=== PATIENT | female | born 1945 | race Caucasian/White ===

== ENCOUNTER 2017-01-29 15:23 | Inpatient (IN) | payer MEDICARE, OTHER ==
[~2017-01-29] VITALS: Ht 172.7 cm; Wt 50.5 kg
[~2017-01-29 15:23] MED LIST: ASPI325T PO; BUPR-51 PO; CALC625T32 PO; CITA40TA6 PO; DOCU-175 PO; FENT1PAT66 TD; HYDR-3989 PO; HYDR-4078 PO; HYDR12.54 PO; SERT50TA12 PO; TEMA15CA PO
--- NOTE | 2017-01-29 15:24 | NUR ---
Admit A 71 year old female was admitted to room 179 via non emergent transport. She was able to move herself over to her bed from the cart, with minimal assist. Pivoted well with TLSO brace in place. Pt reports having a prothesis to the Rt eye. No open areas noted. Fentanyl Patch to the Lt upper chest, placed 3/12 per hospital records. Reports that her reason for being here was that she "slipped on a rug and fell." She had her cell phone with her
--- OUTSIDE RECORDS SUMMARY | 2017-01-29 15:29 | XMS REPORT | Continuity of Care Document ---
Author Author [facility] Organization [facility] Address Unknown Phone Unavailable Care Team Providers Care Design Engineer Name Role Phone Mona Penaloza Primary Care Physician [phone] Source Comments Some departments are not documenting in the electronic medical record. If you do not see the information that you expected, contact Release of Information in the Health Information Management department at [phone] for further assistance in locating additional records.[facility] Active Allergies and Adverse Reactions Allergen Noted Date Severity Reactions Comments Doxycycline 01/10/2010 ITCHING "Itching in throat" Egg White 06/20/2013 EDEMA Raw eggs- Does not take flu vaccine or pneumonia vaccine Per pt 09/11: tolerates cooked egg in product and hard boiled egg but not scrambled egg, fluid eggs, or omelets. Ibuprofen 01/10/2010 ITCHING "Itching in throat" Current Medications Prescription Sig. Disp. Refills Start End Date Status Date temazepam (RESTORIL) 15 Take 15 mg by mouth at Active mg capsule bedtime daily. hydrochlorothiazide Take 12.5 mg by mouth Active (HYDRODIURIL) 12.5 mg Tab daily. tablet fish oil /omega-3 fatty Take 1 Cap by mouth Active acids (SEA-OMEGA) daily. 340/1000 mg capsule citalopram (CELEXA) 40 mg Take 40 mg by mouth Active tablet daily. vitamins, multiple tablet Take 1 Tab by mouth Active daily. ascorbic acid (VITAMIN-C) Take 500 mg by mouth Active 500 mg tablet daily. cholecalciferol (Vitamin Take 1,000 Units by mouth Active D3) (VITAMIN D-3) 1,000 daily. units tablet docusate (COLACE) 100 mg Take 100 mg by mouth Active capsule daily as needed. For constipation aspirin 325 mg tablet Take 1 Tab by mouth 30 Tab 1 09/24/20 Active daily. 13 HYDROcodone/acetaminophen TAKE ONE TO TWO TABLETS 50 Tab 0 02/04/20 Active (NORCO; VICODIN) 5-325 mg BY MOUTH EVERY 6 TO 8 14 tablet HOURS NEEDED FOR PAIN minocycline (MINOCIN) 100 TAKE ONE CAPSULE BY MOUTH 60 Cap 11 Active mg capsule TWICE A DAY 14 ciprofloxacin HCl (CIPRO) Take 1 Tab by mouth 30 Tab 0 03/15/20 Active 250 mg tablet daily. 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 Social History Tobacco Use Types Packs/Day Years Used Date Former Smoker Cigarettes 1 58 Quit: 05/19/2013 Smokeless Tobacco: Never Used Tobacco Cessation: Counseling Given: Yes Comments: Chews nicorette gum Alcohol Use Drinks/Week oz/Week Comments No recovering alcoholic-7 yrs sober Last Filed Vital Signs Vital Sign Reading Time Taken Blood Pressure 146/86 09/10/2014 12:58 PM CDT Pulse 72 09/10/2014 12:58 PM CDT Temperature 36.3 C (97.3 F) 09/10/2014 12:58 PM CDT Respiratory Rate 16 09/10/2014 12:58 PM CDT Height 1.753 m (5' 9.02") 09/10/2014 12:58 PM CDT Weight 53.706 kg (118 lb 6.4 oz) 09/10/2014 12:58 PM CDT Body Mass Index 17.48 09/10/2014 12:58 PM CDT Oxygen Saturation 95% 09/24/2013 6:00 AM 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
[2017-01-29] MEDS ORDERED: HYDROCODONE/APAP 5 mg/325 mg TABLET PO ONE (15:30)
--- OUTSIDE RECORDS SUMMARY | 2017-01-29 15:30 | XMS REPORT | Continuity of Care Document ---
Author Author [facility] Organization [facility] Address Unknown Phone Unavailable Allergies Medications Problems Procedures Results Encounters ACCT No. Visit Date/Time Discharge Status Pt. Type Provider Facility Loc./Unit Complaint [id number] 02/02/2014 13:24:00 02/02/2014 23 :59:59 CLS Outpatient
--- OUTSIDE RECORDS SUMMARY | 2017-01-29 15:30 | XMS REPORT | Continuity of Care Document ---
Author Author [facility] Organization [facility] Address Unknown Phone Unavailable Support Name Relationship Address Phone MARCH, JAYNA Leyva DO Caregiver [address] [place] [address] [place] [address] Unavailable MILLIE PEREZ DO Caregiver Unknown Unavailable [place] [address] Insurance Providers Guarantor Marya Sanders Address [address] [place] [address] Email 01-27-17 Payer [employer] Medicare Supplement Policy Number [id number] Subscriber's Name Marya Sanders Relationship 18 Self Group Number [id number] Payer Medicare Policy Number [id number] Subscriber's Name Marya Sanders Relationship 18 Self Chief Complaint and Reason for Visit Chief Complaint Back Pain or Injury Reason for Visit Narcotic abuse Compression fracture of L1 lumbar vertebra Problems Past Problems Medical Problem Onset Date Compression fracture of L1 lumbar vertebra Unknown Lateral epicondylitis Unknown Narcotic abuse Unknown Right hand paresthesia Unknown Medications Current Home Medications Medication Dose Units Route Directions Days Qty Instructions Start Date Acetaminophen/Hydrocodone Bitart ([place] 5-325 Tablet) 5-325 Tablet 1-2 Tab Oral As Needed 10/21/16 Aspirin 325 Mg Tablet 325 Mg Oral Daily 10/21/16 Bupropion Hcl (Bupropion Xl) 150 Mg Tab.er.24h 15 Mg Oral Daily 10/21/16 Calcium Polycarbophil (Fiber Tabs) 625 Mg Tablet 1 Tab Oral Daily 10/21/16 Citalopram Hydrobromide (Citalopram Hbr) 40 Mg Tablet 40 Mg Oral Daily 10/21/16 Docusate Sodium 100 Mg Capsule 100 Mg Oral Daily 10/21/16 Fentanyl (Fentanyl 50 Mcg/Hr) 1 Each Patch.td72 1 Patch Transderm Every 3 Days 10/21/16 Hydrochlorothiazide 12.5 Mg Tablet 12.5 Mg Oral Daily 10/21/16 Hydrocodone/Acetaminophen ([place] 10-325 Tablet) 10-325 Tablet 1 Tab Oral As Needed as needed for Pain 10/21/16 Sertraline Hcl (Sertraline) 50 Mg Tablet 25 Mg Oral Daily Temazepam 15 Mg Capsule 30 Mg Oral Daily 10/21/16 Past Home Medications Medication Directions Ordered Status Lisinopril 20 Mg Tablet, 20 Mg Oral Bedtime 07/14/11 Discontinued Social History Social History Problem Response Recorded Date/Time Onset Date Status Hx Substance Use No 01/27/2017 1:43am Not Applicable Not Applicable Hx Alcohol Use No 01/27/2017 1:43am Not Applicable Not Applicable Query Response Start Date Stop Date Smoking Status Former smoker Hospital Discharge Instructions No hospital discharge instructions. Plan of Care Discharge Date 01/27/17 3:35am Disposition 02 TO [facility] Condition at Discharge Improved Prescriptions See Medication Section Referrals MILLIE PEREZ DO Functional Status No functional status results. Allergies, Adverse Reactions, Alerts Allergen Type Severity Reaction Status Last Updated Ibuprofen Allergy Severe FACIAL SWELLING Active 01/27/17 Doxycycline Allergy Severe FACE AND THROAT SWELLS Active 01/27/17 Eggs Allergy Intermediate RASH Active 01/27/17 Immunizations Query Response on File Recorded Date/Time Hx Influenza Vaccination No 10/06/13 3:42pm Hx Pneumococcal Vaccination No 10/06/13 3:42pm Hx Influenza Vaccination No 10/06/13 3:42pm Influenza Vaccine Hx NOT THIS SEASON 01/27/17 1:43am Tdap Vaccine Hx NOT CURRENT PER PT 11/13/16 9:20am Vital Signs Acute Vital Signs Vital Response Date/Time Temperature (Fahrenheit) 97.4 deg F (96.8 - 99.1) 01/27/2017 3:35am Temperature (Calculated Celsius) 36.86725 degrees C (36.0 - 37.3) 01/27/2017 3:35am Pulse Rate (adult) 59 bpm (60 - 100) 01/27/2017 3:35am Respiratory Rate 22 breaths/min (10 - 20) 01/27/2017 3:35am O2 Sat by Pulse Oximetry 99 % (90 - 100) 01/27/2017 3:35am Blood Pressure 201/95 mm Hg 01/27/2017 3:35am Height (Feet) 5 feet 01/27/2017 1:30am Height (Inches) 6.00 inches 01/27/2017 1:30am Weight (Kilograms) 53.600 kg 01/27/2017 1:30am Body Mass Index (BMI) 19.0 01/27/2017 1:30am Results No known relevant diagnostic tests, laboratory data and/or discharge summary. Procedures Procedure Status Date Provider(s) Emergency dept visit Completed 11/13/16 Encounters Encounter Location Arrival/Admit Date Discharge/Depart Date Attending Provider Departed Emergency Room [facility] 01/27/17 1:27am 01/27/17 3: 35am JAYNA WALSH DO Departed Emergency Room [facility] 11/13/16 9:16am 11/13/16 10: 00am JAYNA WALSH DO Recent Diagnosis
[2017-01-29 15:41] VITALS: BP 163/86; PULSE 61; RESP 18; TEMP 98.2; O2SAT 96
[2017-01-29 15:46] VITALS: Ht 172.7 cm; Wt 50.5 kg
[2017-01-29 16:30] VITALS: PULSE 61; RESP 18
[2017-01-29] MEDS ORDERED: DEXT15DR5 RIGHT EYE (16:36)
[2017-01-29] MEDS ORDERED: CALC625T69 PO (16:36)
[2017-01-29] MEDS ORDERED: CHOL200014 PO (16:36)
[2017-01-29] MEDS ORDERED: CALC-191 PO (16:36)
[2017-01-29] MEDS ORDERED: ASCO500T10 PO (16:36)
[2017-01-29] MEDS ORDERED: NORCO PO (16:36)
[2017-01-29] MEDS ORDERED: CALC3.8S NAS (16:36)
[2017-01-29] MEDS ORDERED: VITA100C23 PO (16:36)
[2017-01-29] MEDS ORDERED: LEVO15TA5 PO (16:36)
[2017-01-29] MEDS ORDERED: PRED10DR15 LEFT EYE (16:36)
[2017-01-29] MEDS ORDERED: VITA1TAB21 PO (16:36)
[2017-01-29] MEDS ORDERED: MULT1TAB69 PO (16:36)
[2017-01-29] MEDS ORDERED: GLUC-251 PO (16:36)
[2017-01-29 17:20] VITALS: PULSE 78; RESP 16; O2SAT 97
--- NOTE | 2017-01-29 19:12 | NUR ---
Shift Summary Pt is alert and oriented to person, place, and time. Ambulates well with assist of 1 and gait belt. She has a TLSO brace in place when OOB. Has been continent this shift, able to manage her own clothing and cares. Ate moderately for dinner this evening, did not need assist with her tray, stayed in her room. She complained of pain this shift rated at a 10/10, received [place] 5/325mg at 1555 and also [place] 7.5/325mg at 1808. When in bed the bed alarm is in use, call light is within reach, and SCDs in place.
[2017-01-29] MEDS ORDERED: CALCITONIN NASAL SPRAY 200 UNITS NAS PRN (20:30)
[2017-01-29] MEDS ORDERED: PRN ORDERS MC (20:30)
[2017-01-29] MEDS ORDERED: FENTANYL 50 MCG/HR PATCH TD SCH (20:30)
[2017-01-29] MEDS: TEMAZEPAM 15 MG CAPSULE PO SCH (21:20)
[2017-01-29] MEDS: DOCUSATE SODIUM 100 MG CAPSULE PO SCH (21:43)
[2017-01-29] MEDS ORDERED: DOCUSATE SODIUM 100 MG CAPSULE PO SCH (22:00)
[2017-01-30 00:22] VITALS: BP 155/83; PULSE 69; RESP 18; TEMP 97.9; O2SAT 99
[2017-01-30 05:09] LABS: BASOPHILS # (AUTO) 0.1 T/MM3 (0-0.2); BASOPHILS % (AUTO) 0.8 % (0-2); EOSINOPHILS # (AUTO) 0.4 T/MM3 (0-0.5); EOSINOPHILS % (AUTO) 5.4 % (0-4); HCT - HEMATOCRIT 40.1 % (36-46); HGB - HEMOGLOBIN 13.1 GM/DL (12-16); IMMATURE GRANULOCYTE # (AUTO) 0.01 T/MM3 (0.00-0.03); IMMATURE GRANULOCYTE % (AUTO) 0.1 % (0.0-0.5); LYMPHOCYTES # (AUTO) 1.9 T/MM3 (1-4.8); LYMPHOCYTES % (AUTO) 24.4 % (23-45); MEAN CORPUSCULAR HGB 31.6 UUG (26-34); MEAN CORPUSCULAR HGB CONC(MCHC 32.7 GM/DL (31-37); MEAN CORPUSCULAR VOLUME 96.6 UM3 (80-100); MEAN PLATELET VOLUME 9.4 UM3 (9.4-12.4); MONOCYTES # (AUTO) 0.8 T/MM3 (0-0.8); MONOCYTES % (AUTO) 10.8 % (0-9.0); NEUTROPHILS #(AUTO)-ABSOLUTE 4.5 T/MM3 (1.8-7.7); NEUTROPHILS % (AUTO) 58.5 % (33-66); RED BLOOD COUNT 4.15 M/MM3 (4.00-5.20); WBC - WHITE BLOOD COUNT 7.6 T/MM3 (4.5-11.0)
[2017-01-30 05:25] LABS: ANION GAP 9 MEQ/L (5-15); BUN/CREATININE RATIO 19 RATIO (6-26); CALCIUM 9.5 MG/DL (8.4-10.2); CHLORIDE 104 MEQ/L (98-107); CO2 - CARBON DIOXIDE 26 MEQ/L (22-30); CREATININE 1.1 MG/DL (0.7-1.2); GLOMERULAR FILTRATION RATE 49; GLUCOSE 102 MG/DL (65-110); POTASSIUM 3.9 MEQ/L (3.6-5); SODIUM 139 MEQ/L (134-144)
--- NOTE | 2017-01-30 05:39 | NUR ---
Chart Check 24 hour chart check completed
--- NOTE | 2017-01-30 05:41 | NUR ---
Summary Pt has been pleasant and cooperative. Pt states "I made a good decision coming here". Pt had complaint of back pain, managed with 2 [place] 7.5's and Temezapam 30mg, heating pad, and repositioning. Pt ate a late snack including half a slice of peach pie, 2 brownies, and a half single serve 2% milk. Moderate cleanup assistance required. Pt has slept in bed with SCD's, bed alarm, water and call light in reach. Pt has stated "its nice to get some solid sleep" "this sleep is marvelous". Pt has been up to the BR to void in the night, Pt wears her TLSO brace and ambulates with walker, gait belt and 1 assist. Pt complaint of still feeling full when emptying bladder. Bladder scan returned 0ml. Pt in bed sleeping at this time
[2017-01-30] MEDS ORDERED: SERT100T12 PO (07:46)
[2017-01-30] MEDS ORDERED: FENT1PAT TOP (07:46)
[2017-01-30] MEDS ORDERED: HYDR-4010 PO (07:48)
[2017-01-30 08:00] VITALS: BP 172/86; PULSE 56; RESP 16; TEMP 98.3; O2SAT 96
[2017-01-30] MEDS ORDERED: ACETAMINOPHEN 325 MG TABLET PO PRN (08:45)
[2017-01-30] MEDS ORDERED: SERTRALINE 50 MG TABLET PO SCH (09:00)
[2017-01-30] MEDS ORDERED: LEVOMEFOLATE CALCIUM PO SCH (09:00)
--- NOTE | 2017-01-30 10:00 | NUR ---
Pain Pt. reports 10/10 pain in back at breakfast. PRN pain meds previously given. Please see eMAR. Pt. reports pain is intense. Notified CHRISTAL Pollock. Verbal orders received for Lidoderm patch and Flexeril 10mg PO TID PRN. Notified pt. and will continue to monitor.
[2017-01-30] MEDS: VITAMIN B COMP + C TABLET PO SCH (10:40)
[2017-01-30] MEDS: VITAMIN E 200 UNIT CAPSULE PO SCH (10:40)
[2017-01-30] MEDS: ASCORBIC ACID 500 MG TABLET PO SCH (10:40)
[2017-01-30] MEDS: CALCIUM 600mg + VIT D 400 TABLET PO SCH (10:40)
[2017-01-30] MEDS: BuPROPion XL (24 HR) 150 MG TABLET PO SCH (10:40)
[2017-01-30] MEDS: CHOLECALCIFEROL 1,000 UNIT TABLET PO SCH (10:40)
[2017-01-30] MEDS: HYDROCHLOROTHIAZIDE 12.5 MG CAPSULE PO SCH (10:40)
[2017-01-30] MEDS: GLUCOSAMINE 500 MG CAPSULE PO SCH (10:41)
[2017-01-30] MEDS: ASPIRIN 325 MG TABLET PO SCH (10:41)
[2017-01-30] MEDS: CALCIUM POLYCARBOPHIL 625 MG TABLET PO SCH (10:41)
[2017-01-30] MEDS: DOCUSATE SODIUM 100 MG CAPSULE PO SCH ×2 (10:42→20:58)
[2017-01-30] MEDS: MULTIVITAMIN + MINERAL TABLET PO SCH (10:42)
[2017-01-30] MEDS: PrednisoLONE 1% EYE DROPS 5ml LEFT EYE SCH (10:43)
[2017-01-30] MEDS: ARTIFICIAL TEARS 15 ML BOTTLE RIGHT EYE SCH ×2 (10:43→19:49)
[2017-01-30] MEDS: LIDOCAINE 5% PATCH TOP SCH (10:44)
[2017-01-30 11:00] VITALS: PULSE 56; RESP 16
--- NOTE | 2017-01-30 12:17 | NUR ---
High Risk R/T to BMI <18 Diet: Regular Patient states that she rarely has a big appetite, and because of that she doesn't eat a lot. She classified herself as "muncher" and eats snack-like portions often. Patient did agree to have a chocolate mighty shake everyday at 2pm, and a magic cup, brownie, and 2% milk for HS snack every-night. Patient also agreed to have 2% milk for ever meal. RD available at 1406 Addendum: 01/30/17 at [address] Student charting reviewed by Dba Manager.
[2017-01-30] MEDS: CYCLOBENZAPRINE 10 MG TABLET PO PRN ×2 (12:28→19:48)
[2017-01-30] MEDS: MILK OF MAGNESIA 30 ML SUSP PO PRN (12:28)
--- NOTE | 2017-01-30 13:25 | HPPDOC ---
HPI Date DATE: 01/30/17 TIME: 13:13 General Chief Complaint: L1 burst fracture. History of Present Illness Pt has longstanding history of Chronic pain, but was active andfunctional prior to recent injury. She fell and received an L1 burst fracture with immediate increase in pain to an intolerable level. She was admitted and followed nonsurgically. At this time, she is unable to maintain her own adl's due to pain and limited mobility. She is willing to work minimum of 3 hours daily for PT and OT and wants to return home and live independently. 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 Past Medical History Past Medical History Patient's Medical History: (1) Lumbar burst fracture (2) Chronic pain Chronic pain myopathy Surgical History Patient's Surgical History: Lap nathaniel Occuloplasty. Current Medications Home Meds Reported Medications Hydrocodone/Acetaminophen (Lortab 7.5-325 mg Tablet) 1 Each Tablet, 1-2 TAB PO Q4H Y for PAIN 01/30/17 Fentanyl (Fentanyl 75 mcg/hr) 1 Each Patch.td72, 1 PATCH TOP Q72H 01/30/17 Sertraline (Sertraline) 100 Mg Tablet, 100 MG PO DAILY 01/30/17 Vitamin E (Dl,Tocopheryl Acet) (Vitamin E) 100 Unit Capsule, 1 CAP PO DAILY 01/29/17 Prednisolone Acetate (Omnipred) 10 Ml Drops.susp, 1 DROP LEFT EYE DAILY, 01/29/17 Calcium Polycarbophil (Fiber Lax) 625 Mg Tablet, 1 TAB PO DAILY 01/29/17 Dextran 70/Hypromellose (Artificial Tears Eye Drops) 15 Ml Drops, 2 DROP RIGHT EYE BID, 01/29/17 Vitamin B Complex (Vitamin B Complex) 1 Each Tablet, 1 TAB PO DAILY 01/29/17 Multivitamin (Multivitamins) 1 Each Tablet, 1 TAB PO DAILY 01/29/17 Levomefolate Calcium (l-Methylfolate) 15 Mg Tablet, 1 TAB PO DAILY, TAB 01/29/17 Glucosamine/D3/Boswellia Valeri (Osteo Bi-Flex Tablet) 1 Each Tablet, 1 TAB PO DAILY 01/29/17 Cholecalciferol (Vitamin D3) (Vitamin D3) 2,000 Unit Tablet, 1 TAB PO DAILY 01/29/17 Calcium Carbonate/Vitamin D3 (Calcium + Vitamin D Tablet) 1 Each Tablet, 1 TAB PO DAILY 01/29/17 Ascorbic Acid (Ascorbic Acid) 500 Mg Tablet, 1 TAB PO DAILY, TAB 01/29/17 Calcitonin,[place],Synthetic (Calcitonin-[place]) 3.7 Ml [place].pump, 1 SPRAY [place] DAILY 01/29/17 Docusate Sodium (Docusate Sodium) 100 Mg Capsule, 200 MG PO HS Y for CONSTIPATION 10/21/16 Aspirin (Aspirin) 325 Mg Tablet, 325 MG PO DAILY 10/21/16 Bupropion HCl (Bupropion Xl) 150 Mg Tab.er.24h, 150 MG PO DAILY 10/21/16 Citalopram Hydrobromide (Citalopram HBr) 40 Mg Tablet, 40 MG PO DAILY 10/21/16 Hydrochlorothiazide (Hydrochlorothiazide) 12.5 Mg Tablet, 12.5 MG PO DAILY 10/21/16 Temazepam (Temazepam) 15 Mg Capsule, 30 MG PO HS Y for SLEEPLESSNESS 10/21/16 Allergies: Coded Allergies: doxycycline (Verified Allergy, Severe, FACE AND THROAT SWELLS, 01/27/17) ibuprofen (Verified Allergy, Severe, FACIAL SWELLING, 01/27/17) Family History Family History: RA HTN Social History Advance Directives: Yes DPOA for Healthcare Only (Dipti Latif & Manish Latif) Review of Systems Eyes General: REPORTS: see HPI Musculoskeletal General: see HPI All Other Systems All Other Systems: Reviewed Physical Exam General General Nourishment: well nourished, well developed, thin, adult Vital Signs Vital Signs Date Time Temp Pulse Resp B/P Pulse Ox O2 Delivery O2 Flow Rate FiO2 01/30/17 11:00 56 16 01/30/17 08:00 98.3 172/86 96 Room Air Height (Feet): 5 Height (Inches): 8.00 Comments glass eye. Cardiovascular (brief) Cardiac Brief: FOUND: pedal edema, regular rate, regular rhythm Capillary Refill: <2 sec Abdomen (brief) Abdominal Brief: FOUND: BS normo active x4, soft, tender (diffuse, no mass palp ) Integumentary (brief) Comments pain lower thoracic and upper lumbar spine to motion and gentle palp. Neurologic RN Documented GCS Eye Opening: Verbal: Motor: Total: Laboratory Laboratory Tests Test 01/30/17 04:25 White Blood Count 7.6T/MM3 Red Blood Count 4.15M/MM3 Hemoglobin 13.1GM/DL Hematocrit 40.1% Mean Corpuscular Volume 96.6UM3 Mean Corpuscular Hemoglobin 31.6UUG Mean Corpuscular Hemoglobin Concent 32.7GM/DL RDW Standard Deviation 41.5FL Platelet Count 211T/MM3 Mean Platelet Volume 9.4UM3 Immature Granulocyte % (Auto) 0.1% Neutrophils (%) (Auto) 58.5% Lymphocytes (%) (Auto) 24.4% Monocytes (%) (Auto) 10.8% Eosinophils (%) (Auto) 5.4% Basophils (%) (Auto) 0.8% Absolute Immature Granulocyte (auto 0.01T/MM3 Absolute Neutrophils (auto) 4.5T/MM3 Absolute Lymphocytes (auto) 1.9T/MM3 Absolute Monocytes (auto) 0.8T/MM3 Absolute Eosinophils (auto) 0.4T/MM3 Absolute Basophils (auto) 0.1T/MM3 Turbidity < 20 Sodium Level 139MEQ/L Potassium Level 3.9MEQ/L Chloride Level 104MEQ/L Carbon Dioxide Level 26MEQ/L Anion Gap 9MEQ/L Blood Urea Nitrogen 21.0MG/DL Creatinine 1.1MG/DL Glomerular Filtration Rate Calc 49 BUN/Creatinine Ratio 19RATIO Glucose Level 102MG/DL Calculated Osmolality 271MOSM/KG Calcium Level 9.5MG/DL Icterus Index < 2 Chemistry Specimen Hemolysis 21 Concerns For Adverse Events Pt has L1 burst fracture and very limited mobility. Chronic pain will be an issue in recovery. Assessment & Plan Problems: (1) Chronic pain Assessment & Plan: Currently on Fentanyl 50 mcg patch and [place] 5mg, 2 tabs q 4 hours. No increase in meds and will work to gradually decrease during admission. (2) Lumbar burst fracture Assessment & Plan: PT and OT aware and will tailor treatment to this. (3) Depression Assessment & Plan: Cont with current meds. Consult psych if worsening. Exercise annd increasing mobility should help. (4) History of alcoholism Assessment & Plan: Aware adn will be cautious but appropriate with pain meds. DVT Prophylaxis: SCD'S Code Status Full Code Interventions to Obtain Goals OT Treatment Plan: ADL's (basic care), Ther. Exercise for ADL's, UE Functional Training, Balance Training, Pt./Family Education, IADL's Hospital Course Summary Disclaimer The hospital course summary below is not to be considered part of the above Progress Note. LUIS MIGUEL GOSS MD Jan 30, 2017 13:16
--- NOTE | 2017-01-30 13:28 | IRU24PDOC ---
24 Hour Post Admission Eval Relevant Changes Relevant Changes: No I have reviewed the patient's information and concur with the finding and results of the pre-admission screen. Certification I certify the patient for rehabilitation. Patient Condition Prior Medical Conditions: (1) Chronic pain Additional Information: Currently on Fentanyl 50 mcg patch and [place] 5mg, 2 tabs q 4 hours. No increase in meds and will work to gradually decrease during admission. (2) Lumbar burst fracture Additional Information: PT and OT aware and will tailor treatment to this. (3) Depression Additional Information: Cont with current meds. Consult psych if worsening. Exercise annd increasing mobility should help. (4) History of alcoholism Additional Information: Aware and will be cautious but appropriate with pain meds. Current Medical Conditions: (1) Chronic pain Additional Information: Currently on Fentanyl 50 mcg patch and [place] 5mg, 2 tabs q 4 hours. No increase in meds and will work to gradually decrease during admission. (2) Lumbar burst fracture Additional Information: PT and OT aware and will tailor treatment to this. (3) Depression Additional Information: Cont with current meds. Consult psych if worsening. Exercise annd increasing mobility should help. (4) History of alcoholism Additional Information: Aware adn will be cautious but appropriate with pain meds. Prior Functional Condition Lives With: Alone Residence Type: Private home/apartment Assistive Devices: No Assistive Device Prior Functional Status: Indep. at home or school Current Functional Status Failed Alternative Therapy Tri: Arrived from acute care Patient Requirements * Patient has been determined to have significant functional limitations requiring at least two therapy disciplines. * Rehabilitation medical practitioner will provide admission approval, assessment and oversight and program coordination at least daily. * Intensive rehabilitative nursing services on site and available 24 hours a day. * The treatment plan will be developed within 24 hours of admission. * Interdisciplinary and goal oriented treatment by professional nursing, social services aide, and rehabilitation therapist. * Interdisciplinary team meeting weekly inclusive of ongoing comprehensive discharge planning. First team meeting by . Weekly meetings to follow. * Rehab Physician is the team meeting leader. * Pharmacy and diagnostic services will be available. * Ongoing comprehensive rehab program with at least 2 disciplines and greater than or equal to 3 hours a day, 5 days a week. Limitations require: limited mobility, ADL impairment Physical Therapy Minutes: 90 Occupational Therapy Minutes: 90 Therapy The patient is to receive therapy at least 5 days a week. Current Functional Status: Using assistive device PT Treatment Plan: Gait Training, Manual Therapy, Functional Activities Plan of Care Comment: 6x/wk for 1st wk; 5x/wk for 2nd and 3rd wks. OT Treatment Plan: ADL's (basic care), Ther. Exercise for ADL's, UE Functional Training, Balance Training, Pt./Family Education, IADL's OT Treatment Plan Frequency: five times per week OT Treatment Plan Duration: three weeks ROM Deficit: Left Lower Extremity, Right Lower Extremity Muscle Weakness Location: Left Lower Extremity, Right Lower Extremity Complication/Comorbidities Patient Complication Risk: (1) Chronic pain Comments: Currently on Fentanyl 50 mcg patch and [place] 5mg, 2 tabs q 4 hours. No increase in meds and will work to gradually decrease during admission. (2) Lumbar burst fracture Comments: PT and OT aware and will tailor treatment to this. (3) Depression Comments: Cont with current meds. Consult psych if worsening. Exercise annd increasing mobility should help. (4) History of alcoholism Comments: Aware adn will be cautious but appropriate with pain meds. Impact on Functional Outcomes Pain will limit velocity and amount of strenght and stability gains,but pt should ultimately be able to return to pre injury lifestyle. Barriers to Discharge: weakness, endurance, balance, pain control Plan to Avoid Complications Plan to Avoid Complications The patient cannot receive this care in a lesser intensive setting such as [facility] or Outpatient Therapy due to the patient requiring the following L1 burst fracture and Chronic pain medication management. Pt will be slow to accept her pain during this time.. The patient requires oversight by a rehabilitation physician to manage their rehabilitation treatment plan and the multidisciplinary approach to care that can only be provided in an IRF and requires a multidisciplinary approach to care , provided by professional PTs, OTs, STs, dieticians, RTs, rehabilitation nurses and is not available in lesser levels of care. The frequency and duration for therapy, as recommended by the professional Rehabilitation therapists, meet the patient's initial rehabilitation treatment plan needs and will be further evaluated on a weekly basis for progress and/or changes needed. LUIS MIGUEL GOSS MD Jan 30, 2017 13:28
[2017-01-30] MEDS ORDERED: FENTANYL 75MCG/HR PATCH TD ONE (13:30)
--- NOTE | 2017-01-30 13:34 | CONSPD ---
CHIARA KEENE PRODUCTION MACHINE SHOP SUPERVISOR 01/30/17 1200: Consultation Info Date DATE: 01/30/17 TIME: 12:00 Date of Consultation: Jan 30, 2017 Attending Physician: Leonel Garnica MD Reason for Consultation: med mgmt HPI - Adult Date DATE: 01/30/17 TIME: 12:00 General Chief Complaint: back pain History of Present Illness Marya is a 71 year old female who slipped on a rug and fell in her kitchen on at her home in [place]. She was seen in the [facility] [place] and found to have a L1 burst fracture with retropulsion. She was sent to [facility] as a Level 2 trauma and was discharged back to [facility] [place] [place] for inpatient rehabilitation on 01/29/17. Patient has chronic back pain secondary to degenerative disc disease and kyphoscoliosis. She routinely has been on a fentanyl patch 75 g for the last 6 months and her primary care Dr. Segovia was planning to increase her dose to 100 g which did not occur as patient ended up falling with the lumbar fracture. She additionally takes hydrocodone 5 mg tablets 2 at bedtime and also every 4 hours when necessary. 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 The night of her fall, she did take two 10 mg tablets. Medically, patient states feeling she is otherwise pretty healthy. She does take medication for high blood pressure. Denies any coronary artery disease , states she did have rheumatic fever as a child. Also does have a history of alcoholism but states that was long ago. Is an occasional smoker. Tried to quit many years ago using a toothpick to replace the cigarette and ended up accidentally poking her eye with a toothpick and ultimately ended up with a prosthesis. At the time of this initial evaluation by the hospitalist service on the rehabilitation unit, patient complains significantly of pain and interrupts conversation to make moaning sounds. Otherwise denies any medical concerns stating she is someone who is otherwise very healthy for her age. Past Medical History Past Medical History Patient's Medical History: (1) Chronic back pain (2) Hypertension (3) Allergic rhinitis (4) Asthma (5) Degenerative disc disease (6) Kyphoscoliosis and scoliosis (7) Depression (8) Blindness of right eye (9) History of rheumatic fever (10) History of alcoholism Surgical History Patient's Surgical History: Hysterectomy Colonoscopy Femoral bypass Right eye prosthesis Right heel/ankle fracture repair Current Medications Home Meds Reported Medications Hydrocodone/Acetaminophen (Lortab 7.5-325 mg Tablet) 1 Each Tablet, 1-2 TAB PO Q4H Y for PAIN 01/30/17 Fentanyl (Fentanyl 75 mcg/hr) 1 Each Patch.td72, 1 PATCH TOP Q72H 01/30/17 Sertraline (Sertraline) 100 Mg Tablet, 100 MG PO DAILY 01/30/17 Vitamin E (Dl,Tocopheryl Acet) (Vitamin E) 100 Unit Capsule, 1 CAP PO DAILY 01/29/17 Prednisolone Acetate (Omnipred) 10 Ml Drops.susp, 1 DROP LEFT EYE DAILY, 01/29/17 Calcium Polycarbophil (Fiber Lax) 625 Mg Tablet, 1 TAB PO DAILY 01/29/17 Dextran 70/Hypromellose (Artificial Tears Eye Drops) 15 Ml Drops, 2 DROP RIGHT EYE BID, 01/29/17 Vitamin B Complex (Vitamin B Complex) 1 Each Tablet, 1 TAB PO DAILY 01/29/17 Multivitamin (Multivitamins) 1 Each Tablet, 1 TAB PO DAILY 01/29/17 Levomefolate Calcium (l-Methylfolate) 15 Mg Tablet, 1 TAB PO DAILY, TAB 01/29/17 Glucosamine/D3/Boswellia Valeri (Osteo Bi-Flex Tablet) 1 Each Tablet, 1 TAB PO DAILY 01/29/17 Cholecalciferol (Vitamin D3) (Vitamin D3) 2,000 Unit Tablet, 1 TAB PO DAILY 01/29/17 Calcium Carbonate/Vitamin D3 (Calcium + Vitamin D Tablet) 1 Each Tablet, 1 TAB PO DAILY 01/29/17 Ascorbic Acid (Ascorbic Acid) 500 Mg Tablet, 1 TAB PO DAILY, TAB 01/29/17 Calcitonin,[place],Synthetic (Calcitonin-[place]her[place]) 3.7 Ml Iron.pump, 1 SPRAY BROOKE DAILY 01/29/17 Docusate Sodium (Docusate Sodium) 100 Mg Capsule, 200 MG PO HS Y for CONSTIPATION 10/21/16 Aspirin (Aspirin) 325 Mg Tablet, 325 MG PO DAILY 10/21/16 Bupropion HCl (Bupropion Xl) 150 Mg Tab.er.24h, 150 MG PO DAILY 10/21/16 Citalopram Hydrobromide (Citalopram HBr) 40 Mg Tablet, 40 MG PO DAILY 10/21/16 Hydrochlorothiazide (Hydrochlorothiazide) 12.5 Mg Tablet, 12.5 MG PO DAILY 10/21/16 Temazepam (Temazepam) 15 Mg Capsule, 30 MG PO HS Y for SLEEPLESSNESS 10/21/16 Allergies: Coded Allergies: doxycycline (Verified Allergy, Severe, FACE AND THROAT SWELLS, 01/27/17) ibuprofen (Verified Allergy, Severe, FACIAL SWELLING, 01/27/17) Family History Family History: Noncontributory Social History Smoking Status: Current some day smoker Substance Use Type: opiates Alcohol Intake: none Marital Status: Advance Directives: Yes DPOA for Healthcare Only (Dipti Latif & Manish Latif) Social History Comments 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 Review of Systems Constitutional: DENIES: fever Cardiovascular DENIES: chest pain Pulmonary Respiratory: DENIES: cough, dyspnea GI Upper Abdomen: DENIES: vomiting Lower Abdomen: constipation Musculoskeletal General: pain (low back) Integumentary Skin: other (Chin abrasion), DENIES: rash Neurological General: DENIES: headache Psychiatric Psychiatric: depression All Other Systems All Other Systems: Reviewed Physical Exam General General Nourishment: well nourished, well developed, thin General Body Habitus: well groomed Vital Signs Vital Signs Date Time Temp Pulse Resp B/P Pulse Ox O2 Delivery O2 Flow Rate FiO2 01/30/17 11:00 56 16 01/30/17 08:00 98.3 172/86 96 Room Air Height (Feet): 5 Height (Inches): 8.00 Eyes Brief: FOUND: other (right eye prosthesis), NOT FOUND: scleral icterus ENMT Brief: FOUND: hearing intact, mucosa moist Neck Brief: FOUND: midline Respiratory Brief: FOUND: clear all jara, equal bilaterally Cardiovascular (brief) Cardiac Brief: FOUND: regular rate, regular rhythm Abdomen (brief) Abdominal Brief: FOUND: BS normo active x4, soft, NOT FOUND: tender Lymphatic (brief) Lymphatic Brief: NOT FOUND: lymphedema Musculoskeletal (brief) Musculoskeletal Brief: FOUND: extremities move equally, other (much flexibility in lower extremities) Integumentary (brief) Integumentary Brief: FOUND: dry, pink, warm Neurologic (brief) Neurological Brief: NOT FOUND: facial droop Neurologic RN Documented GCS Eye Opening: Verbal: Motor: Total: Psychiatric (brief) FOUND: alert, attentive, normal affect, oriented Laboratory Laboratory Tests Test 01/30/17 04:25 White Blood Count 7.6T/MM3 Red Blood Count 4.15M/MM3 Hemoglobin 13.1GM/DL Hematocrit 40.1% Mean Corpuscular Volume 96.6UM3 Mean Corpuscular Hemoglobin 31.6UUG Mean Corpuscular Hemoglobin Concent 32.7GM/DL RDW Standard Deviation 41.5FL Platelet Count 211T/MM3 Mean Platelet Volume 9.4UM3 Immature Granulocyte % (Auto) 0.1% Neutrophils (%) (Auto) 58.5% Lymphocytes (%) (Auto) 24.4% Monocytes (%) (Auto) 10.8% Eosinophils (%) (Auto) 5.4% Basophils (%) (Auto) 0.8% Absolute Immature Granulocyte (auto 0.01T/MM3 Absolute Neutrophils (auto) 4.5T/MM3 Absolute Lymphocytes (auto) 1.9T/MM3 Absolute Monocytes (auto) 0.8T/MM3 Absolute Eosinophils (auto) 0.4T/MM3 Absolute Basophils (auto) 0.1T/MM3 Turbidity < 20 Sodium Level 139MEQ/L Potassium Level 3.9MEQ/L Chloride Level 104MEQ/L Carbon Dioxide Level 26MEQ/L Anion Gap 9MEQ/L Blood Urea Nitrogen 21.0MG/DL Creatinine 1.1MG/DL Glomerular Filtration Rate Calc 49 BUN/Creatinine Ratio 19RATIO Glucose Level 102MG/DL Calculated Osmolality 271MOSM/KG Calcium Level 9.5MG/DL Icterus Index < 2 Chemistry Specimen Hemolysis 21 Impression/Recommendation Problems: (1) Lumbar burst fracture Status: Acute (2) Degenerative disc disease Status: Chronic (3) Kyphoscoliosis and scoliosis Status: Chronic (4) Depression Status: Chronic (5) Allergic rhinitis Status: Chronic (6) Hypertension Status: Chronic (7) Asthma Status: Chronic (8) Chronic back pain Status: Chronic (9) Blindness of right eye Status: Chronic (10) History of rheumatic fever Status: Resolved (11) History of alcoholism Status: Resolved Recommendation 01/30 Patient takes small dose Hctz 12.5 mg and has taken that for quite some time in the treatment of her hypertension. What pressure has been running systolic 150s to 170s since admission, however patient has been and what she reports as significant pain. She does have an acute burst fracture in addition to chronic back pain with chronic opiate dependency. The fentanyl patch had not been started since her admission yesterday as the dose was listed at 50 g. Patient normally is on 75 g and pharmacy did confirm that. Consider increasing dose to 100 g but with patient's recent fall possibly being impacted by opiates, we will keep her dose at sentinel 75 g for now and reevaluate her response. She is additionally receiving Lortab 7.5 mg 2 tabs every 4 hours on a when necessary basis on the rehabilitation unit, she is taking it every 4 hours. Will need to monitor her response to pain medications as we don't want to limit her ability to participate in therapies because of unknown relieved pain. She is to wear TLSO brace when up and she is doing so. He seems to be pretty motivated. Pain management to be coordinated by rehabilitation providers, they were advised of the concern with sentinel and gave recommendation to place patient back on fentanyl 75 g patch. Hopefully there will be a positive response to blood pressure once pain is more optimally controlled. Pharmacist did review patient's medications and dosages were confirmed and updated. She also has an allergy to egg however in her words she has an allergy to " partially cooked eggs." States she can eat hard-boiled eggs and eggs in bread etc. This is confirmed in my presence in front of the dietitian. They will adjust and modify her diet accordingly. Records reviewed, labwork reviewed. Continue to follow medically. LEONEL GARNICA MD 01/30/171935: Past Medical History Current Medications Home Meds Reported Medications Hydrocodone/Acetaminophen (Lortab 7.5-325 mg Tablet) 1 Each Tablet, 1-2 TAB PO Q4H Y for PAIN 01/30/17 Fentanyl (Fentanyl 75 mcg/hr) 1 Each Patch.td72, 1 PATCH TOP Q72H 01/30/17 Sertraline (Sertraline) 100 Mg Tablet, 100 MG PO DAILY 01/30/17 Vitamin E (Dl,Tocopheryl Acet) (Vitamin E) 100 Unit Capsule, 1 CAP PO DAILY 01/29/17 Prednisolone Acetate (Omnipred) 10 Ml Drops.susp, 1 DROP LEFT EYE DAILY, 01/29/17 Calcium Polycarbophil (Fiber Lax) 625 Mg Tablet, 1 TAB PO DAILY 01/29/17 Dextran 70/Hypromellose (Artificial Tears Eye Drops) 15 Ml Drops, 2 DROP RIGHT EYE BID, 01/29/17 Vitamin B Complex (Vitamin B Complex) 1 Each Tablet, 1 TAB PO DAILY 01/29/17 Multivitamin (Multivitamins) 1 Each Tablet, 1 TAB PO DAILY 01/29/17 Levomefolate Calcium (l-Methylfolate) 15 Mg Tablet, 1 TAB PO DAILY, TAB 01/29/17 Glucosamine/D3/Boswellia Valeri (Osteo Bi-Flex Tablet) 1 Each Tablet, 1 TAB PO DAILY 01/29/17 Cholecalciferol (Vitamin D3) (Vitamin D3) 2,000 Unit Tablet, 1 TAB PO DAILY 01/29/17 Calcium Carbonate/Vitamin D3 (Calcium + Vitamin D Tablet) 1 Each Tablet, 1 TAB PO DAILY 01/29/17 Ascorbic Acid (Ascorbic Acid) 500 Mg Tablet, 1 TAB PO DAILY, TAB 01/29/17 Calcitonin,[place],Synthetic (Calcitonin-[place]) 3.7 Ml Iron.pump, 1 SPRAY BROOKE DAILY 01/29/17 Docusate Sodium (Docusate Sodium) 100 Mg Capsule, 200 MG PO HS Y for CONSTIPATION 10/21/16 Aspirin (Aspirin) 325 Mg Tablet, 325 MG PO DAILY 10/21/16 Bupropion HCl (Bupropion Xl) 150 Mg Tab.er.24h, 150 MG PO DAILY 10/21/16 Citalopram Hydrobromide (Citalopram HBr) 40 Mg Tablet, 40 MG PO DAILY 10/21/16 Hydrochlorothiazide (Hydrochlorothiazide) 12.5 Mg Tablet, 12.5 MG PO DAILY 10/21/16 Temazepam (Temazepam) 15 Mg Capsule, 30 MG PO HS Y for SLEEPLESSNESS 10/21/16 Allergies: Coded Allergies: doxycycline (Verified Allergy, Severe, FACE AND THROAT SWELLS, 01/27/17) ibuprofen (Verified Allergy, Severe, FACIAL SWELLING, 01/27/17) Impression/Recommendation Recommendation Have independently interviewed and examined pt. Chart reviewed. Case discussed with my PRODUCTION MACHINE SHOP SUPERVISOR. Above care plan developed with my supervision; agree with above. Doing okay other than significant pain to back. Movements bothersome. Tolerating pain medications. Breathing well. No nausea. 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 Lungs: clear CV: regular AB: soft nt/nd +BS MSE: awake alert appropriate Plan: Monitor BP on HCTZ - may need further agents to help BP. Encourage therapy to maximize functional status. Continue with pain control. Medically stable for IRU floor activity. CHIARA KEENE APRN Jan 30, 2017 12:00 LEONEL GARNICA MD Jan 30, 2017 19:36
[2017-01-30] MEDS: CALCITONIN NASAL SPRAY 200 UNITS NAS SCH (14:22)
[2017-01-30] MEDS: FOLIC ACID 1 MG TABLET PO SCH (14:22)
[2017-01-30] MEDS: FENTANYL 75MCG/HR PATCH TD SCH (14:23)
[2017-01-30] MEDS ORDERED: NEOMYCIN/POLYM/BACITR OINT PACKET TOP PRN (14:30)
--- NOTE | 2017-01-30 15:00 | NUR ---
Pain Pt. continues to report pain rated 8-10/10 in back. PRN pain meds given as able. Please see eMAR. Heating pad applied and repositioning encouraged for comfort. Pt. reports pain meds do help some. CHRISTAL Vasques, in to see pt. this afternoon. Fentanyl patch was ordered and applied. Please see eMAR. Will continue to monitor.
[2017-01-30 16:00] VITALS: BP 161/87; PULSE 57; RESP 16; TEMP 97.7; O2SAT 98
--- NOTE | 2017-01-30 17:32 | NUR ---
CM SPOKE WITH PT, INTRODUCED SELF, EXPLAINED ROLE, PROVIDED CONTACT INFO. PT STATED SHE LIVES HERE IN [facility] AND HER DC PLAN IS TO RETURN HOME. SHE SAID SHE HAS A SISTER [place]. SHE SAID SHE DOES NOT HAVE ANY DME, AND HAS NOT HAD HOME HEALTH. 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 SHE WAS ENCOURAGED TO CALL IF QUESTIONS DO ARISE, AND SHE SAID OK. Addendum: 01/30/17 at 1734 by ANCA CARDONA Amended: Links added.
--- NOTE | 2017-01-30 19:00 | NUR ---
Summary VS's stable. Pt. has denied nausea and SOA. Urine output adequate. Pt. last BM is unknown. Discussed options with pt. PRN MOM given at lunch time. Pt. is pleasant and A/O. She is up x1 with FWW and gait belt. TLSO brace applied when pt. is out of bed. Pt. is continent. She takes meds whole w/o difficulty. Pt. continues to rated back pain anywhere from a 8-10/10. Heating pad and PRN pain meds given. Please see eMAR. Dr. Garnica in to see pt. at this time. Pt. is currently resting in bed. Alarm is on. Will pass on report to awake overnight counselor.
[2017-01-30] MEDS ORDERED: LIDOCAINE PATCH REMOVAL TOP SCH (21:00)
[2017-01-30] MEDS: TEMAZEPAM 15 MG CAPSULE PO SCH (21:18)
[2017-01-30] MEDS: NICOTINE 2 MG GUM BUC PRN (22:49)
[2017-01-31 03:57] VITALS: BP 154/94; PULSE 82; RESP 20; O2SAT 97
--- NOTE | 2017-01-31 06:24 | NUR ---
Summary Pt had complaint of continuing back pain periodically through the night. Pain was treated with scheduled and PRN meds. Pt education provided regarding total acetaminophen for 24hrs. Pt has used call light appropriately but has not waited for staff to respond before getting up from the bathroom. After using the BR call light pt was found coming out the bathroom door with gaitbelt, and fww. Pt ambulates with steady gait. pt in bed call light and water in reach.
[2017-01-31] MEDS: HYDROCHLOROTHIAZIDE 12.5 MG CAPSULE PO SCH (09:06)
[2017-01-31] MEDS: FOLIC ACID 1 MG TABLET PO SCH (09:07)
[2017-01-31] MEDS: GLUCOSAMINE 500 MG CAPSULE PO SCH (09:07)
[2017-01-31] MEDS: VITAMIN B COMP + C TABLET PO SCH (09:07)
[2017-01-31] MEDS: BuPROPion XL (24 HR) 150 MG TABLET PO SCH (09:07)
[2017-01-31] MEDS: CALCIUM POLYCARBOPHIL 625 MG TABLET PO SCH (09:07)
[2017-01-31] MEDS: CHOLECALCIFEROL 1,000 UNIT TABLET PO SCH (09:07)
[2017-01-31] MEDS: ASPIRIN 325 MG TABLET PO SCH (09:07)
[2017-01-31] MEDS: CALCIUM 600mg + VIT D 400 TABLET PO SCH (09:07)
[2017-01-31] MEDS: DOCUSATE SODIUM 100 MG CAPSULE PO SCH ×2 (09:07→22:25)
[2017-01-31] MEDS: MULTIVITAMIN + MINERAL TABLET PO SCH (09:08)
[2017-01-31] MEDS: SERTRALINE 100 MG TABLET PO SCH (09:08)
[2017-01-31] MEDS: VITAMIN E 200 UNIT CAPSULE PO SCH (09:08)
[2017-01-31] MEDS: ASCORBIC ACID 500 MG TABLET PO SCH (09:08)
[2017-01-31] MEDS: CALCITONIN NASAL SPRAY 200 UNITS NAS SCH (09:09)
[2017-01-31] MEDS: ARTIFICIAL TEARS 15 ML BOTTLE RIGHT EYE SCH ×2 (09:10→22:26)
[2017-01-31] MEDS: PrednisoLONE 1% EYE DROPS 5ml LEFT EYE SCH (09:10)
[2017-01-31 09:16] VITALS: BP 128/72; PULSE 59; RESP 18; TEMP 97.5; O2SAT 97
[2017-01-31] MEDS: LIDOCAINE 5% PATCH TOP SCH (09:56)
[2017-01-31] MEDS: CYCLOBENZAPRINE 10 MG TABLET PO PRN (12:21)
[2017-01-31] MEDS ORDERED: MILK OF MAGNESIA 30 ML SUSP PO ONE (13:00)
--- NOTE | 2017-01-31 13:00 | PDIRUTEAM ---
Multidisciplinary Team Meeting Nursing Hx Incontinence: No Bladder Goal: 7+ Complete [place] M[place]urdy Y/N: No Bladder Continent or Incontine: Continent Incontinent Product Used: Patient's Own Underwear Cleaning Ability-Bladder: 6 Modified [place] Bowel Goal: 7+ Complete [place] Colostomy Y/N: No Bowel Incontinent/Continent: Continent Toileting Ability: 4 Minimal Assistance Vital Signs Vital Signs Date Time Temp Pulse Resp B/P Pulse Ox O2 Delivery O2 Flow Rate FiO2 01/31/17 09:16 97.5 59 18 128/72 97 Room Air Current Medications Current Medications Medications (Trade) Dose Ordered Sig/Mignon Route PRN Reason Start Time Stop Time Status Last Admin Dose Admin Docusate Sodium (Colace) 100 mg BID PO 01/29/17 21:00 01/31/17 09:07 Ascorbic Acid (VITAMIN C 500 mg Tablet) 500 mg DAILY PO 01/30/17 09:00 01/31/17 09:08 Aspirin (ASA) 325 mg DAILY PO 01/30/17 09:00 01/31/17 09:07 Bupropion HCl (Wellbutrin Xl) 150 mg DAILY PO 01/30/17 09:00 01/31/17 09:07 Calcium Polycarbophil (Fiber-Lax) 625 mg DAILY PO 01/30/17 09:00 01/31/17 09:07 Hydrochlorothiazide (Hydrodiuril) 12.5 mg WB PO 01/30/17 08:00 01/31/17 09:06 Multivitamins/ Minerals (Therapeutic - M) 1 tab DAILY PO 01/30/17 09:00 01/31/17 09:08 Prednisolone Acetate (Pred Forte) 1 drop DAILY LEFT EYE 01/30/17 09:00 01/31/17 09:10 Temazepam (Restoril) 30 mg HS PO 01/29/17 22:00 01/30/17 21:18 Calcium/Vitamin D (Caltrate + D) 1 tab DAILY PO 01/30/17 09:00 01/31/17 09:07 Cholecalciferol (Vit. D3) 2,000 unit DAILY PO 01/30/17 09:00 01/31/17 09:07 Artificial Tears (Tears Naturale) 2 drop BID RIGHT EYE 01/30/17 09:00 01/31/17 09:10 Glucosamine Sulfate (Glucosamine Sulfate) 500 mg DAILY PO 01/30/17 09:00 01/31/17 09:07 Vitamin B Complex (Total B + C) 1 tab DAILY PO 01/30/17 09:00 01/31/17 09:07 Vitamin E (Vitamin E 200 Unit) 200 unit DAILY PO 01/30/17 09:00 01/31/17 09:08 Acetaminophen/ Hydrocodone Bitart ([place] 7.5/325) 1-2 tabs q 4 hours prn pa... Q4H PRN PO PAIN 01/29/17 20:30 01/31/17 09:09 Magnesium Hydroxide (Mom) 30 ml DAILY PRN PO CONSTIPATION 01/30/17 08:45 01/30/17 12:28 Acetaminophen (Tylenol Regular Strength) 1-2 TABS PO Q5H PRN PO DISCOMFORT 01/30/17 08:45 01/30/17 08:46 Lidocaine (Lidoderm) 1 patch DAILY TOP 01/30/17 09:00 01/31/17 09:56 Cyclobenzaprine HCl (Flexeril) 10 mg TID PRN PO 01/30/17 09:00 01/31/17 12:21 Lidocaine (Lidoderm Patch Removal) 1 removal 2100 TOP 01/30/17 21:00 01/30/17 21:00 Calcitonin (Miacalcin) 1 spray DAILY BROOKE 01/30/17 13:30 01/31/17 09:09 Folic Acid (Folate) 1 mg DAILY PO 01/30/17 13:30 01/31/17 09:07 Sertraline HCl (Zoloft) 100 mg DAILY PO 01/31/17 09:00 01/31/17 09:08 Fentanyl (Duragesic 75 Mcg) 1 patch Q3D TD 01/30/17 13:30 01/30/17 14:23 Neomycin/ Polymyxin/ Bacitracin (Neosporin) 1 applic DAILY PRN TOP 01/30/17 14:30 01/30/17 19:46 Nicotine Polacrilex (Nicorette) 2 mg Q1H PRN BUC For Nicotine Replacement 01/30/17 19:45 01/30/17 22:49 Comments Continent of bowel and bladder. Fentanyl patch increased and this did decrease her bp back to normal. Physical Therapy Bed Transfer Ability: 5 Supervision/Setup Bed Transfer Assistance Needed: 1 Person Chair Transfer Ability: 4 Minimal Assistance Chair Transfer Assistance Need: 1 Person Overall Toilet / Commode Trans: 5 Supervision/Setup Ambulation Ability: 4 Minimal Assistance Ambulation Assistance Needed: 1 Person Ambulation Distance: 121 Comments Limited by pain yesterday. She did do better this am with increase of fentanyl patch. Occupational Therapy Grooming Ability: 5 Supervision/Setup Bathing Ability: 4 Minimal Assistance Upper Body Dressing Ability: 4 Minimal Assistance Dressing-Upper FIM Score Reaso: Pt. required min assist to don TLSO brace. Lower Body Dressing Ability: 4 Minimal Assistance Lower Body Dressing Assistance: 1 Person Toileting Assistance Needed: 1 Person Comments FIMS 4. Care Plan IRU Discharge Disposition: Home, self care Interventions/Goals D/c plan home alone. Low BMI causing fracture risk. Barriers to d/c pain, endurance, safety Day 1 of unestimated yet. May need shower chair or walker. on d/c. Re-eval on sunday, may exceed expectations. LUIS MIGUEL GOSS MD Jan 31, 2017 12:46
--- NOTE | 2017-01-31 13:05 | PNPDOC ---
ADELSO ACE V AFFILIATE MANAGER 01/31/17 1253: Subjective Date DATE: 01/31/17 TIME: 12:45 Subjective Marya is seen this morning at breakfast. She is very frustrated that she had to get up this morning as she is "pain free" while in bed this morning. She is having 8/10 low back pain currently. She has not a bowel movement. Nutrition is poor and she is currently taking mighty shakes. BP 128/72. Objective Vital Signs Vital signs Vital Signs Date Time Temp Pulse Resp B/P Pulse Ox O2 Delivery O2 Flow Rate FiO2 01/31/17 09:16 97.5 59 18 128/72 97 Room Air Height (Feet): 5 Height (Inches): 8.00 Weight (Kilograms): 50.500 General General Appearance: Alert, Orientated x 3, Cooperative, No Acute Distress Eyes (Brief) Eyes: FOUND: EOMI ENMT (Brief) ENMT: FOUND: mucosa moist, normal dentition, NOT FOUND: pharnyx erythema Neck (Brief) Neck: FOUND: midline, NOT FOUND: adenopathy, carotid bruits, tracheal deviation Respiratory (Brief) Respiratory: FOUND: clear all jara, equal bilaterally, NOT FOUND: wheezes Cardiovascular (Brief) Cardiac: FOUND: regular rate, regular rhythm, NOT FOUND: murmur, pedal edema Capillary Refill: <2 sec Abdomen (Brief) Abdominal: FOUND: BS normo active x4, soft, NOT FOUND: distended, tender Lymphatic (Brief) Lymphatic: NOT FOUND: adenopathy Musculoskeletal (Brief) Musculoskeletal: FOUND: tenderness (back pain) Integumentary (Brief) Integumentary: FOUND: dry, pink, warm Neurologic (Brief) Neurological: FOUND: cranial 2-12 intact Psychiatric (Brief) Psychiatric: FOUND: alert, attentive, normal affect, oriented Laboratory Laboratory Laboratory Tests 01/30/17 04:25 Laboratory Tests 01/30/17 04:25 Assessment & Plan Problems: (1) Lumbar burst fracture Status: Acute (2) Degenerative disc disease Status: Chronic (3) Kyphoscoliosis and scoliosis Status: Chronic (4) Depression Status: Chronic (5) Allergic rhinitis Status: Chronic (6) Hypertension Status: Chronic (7) Asthma Status: Chronic (8) Chronic back pain Status: Chronic (9) Blindness of right eye Status: Chronic (10) History of rheumatic fever Status: Resolved (11) History of alcoholism Status: Resolved Plan/Intensity of Service 01/31/17 Continue with Fentanyl patch 75mcg and continue with [place] PRN Will place Fragility consult with Dr Gillis for further evaluation of bone health. Continue with Calcitonin nasal spray Will work on bowel motivation Code Status Full Code Hospital Course Summary Disclaimer The hospital course summary below is not to be considered part of the above Progress Note. TEDDY CONTRERAS MD 01/31/17 1905: Assessment & Plan Plan/Intensity of Service Have independently interviewed and examined pt. Chart reviewed. Case discussed with my AFFILIATE MANAGER. Care plan developed with my supervision; agree with above. Doing better - pain with improvement. Tolerating therapy. No ab pain or nausea. Breathing well. No chest pain. Has chronic urinary leakage - reports was to see one of the [facility] urologist for evaluation. Wonders about seeing him while she is on IRU. Lungs: clear CV: regular MSE: awake alert appropriate Plan: Continue with pain control. Encourage therapy. Continue with bowel motivation. Will discuss with Rehab team about possible urological evaluation. Medically stable for IRU floor activities. ADELSO ACE APRN Jan 31, 2017 12:53 TEDDY CONTRERAS MD Jan 31, 2017 19:05
[2017-01-31] MEDS: NICOTINE 2 MG GUM BUC PRN (14:45)
[2017-01-31] MEDS ORDERED: LIDOCAINE PATCH REMOVAL TOP ONE (15:00)
--- NOTE | 2017-01-31 15:39 | PDIRUOPC ---
Overall Plan of Care Date DATE: 01/31/17 TIME: 15:36 Relevant Changes Relevant Changes: No I have reviewed the patient's information and concur with the finding and results of the pre-admission screen. Certification I certify the patient for rehabilitation. Patient Impairments Prior Medical Conditions: (1) Chronic pain Additional Information: Currently on Fentanyl 50 mcg patch and [place]den 5mg, 2 tabs q 4 hours. No increase in meds and will work to gradually decrease during admission. (2) Lumbar burst fracture Status: Acute Additional Information: PT and OT aware and will tailor treatment to this. (3) Depression Status: Chronic Additional Information: Cont with current meds. Consult psych if worsening. Exercise annd increasing mobility should help. (4) History of alcoholism Status: Resolved Additional Information: Aware adn will be cautious but appropriate with pain meds. Current Medical Conditions: (1) Chronic pain Additional Information: Currently on Fentanyl 50 mcg patch and Belden 5mg, 2 tabs q 4 hours. No increase in meds and will work to gradually decrease during admission. (2) Lumbar burst fracture Status: Acute Additional Information: PT and OT aware and will tailor treatment to this. (3) Depression Status: Chronic Additional Information: Cont with current meds. Consult psych if worsening. Exercise annd increasing mobility should help. (4) History of alcoholism Status: Resolved Additional Information: Aware adn will be cautious but appropriate with pain meds. Medical Prognosis Fair IRF Tx That Should Address Dx: (1) Lumbar burst fracture Dx Requiring Medical FU: (1) Hypertension (2) Depression (3) History of rheumatic fever Vital Signs Vital Signs Date Time Temp Pulse Resp B/P Pulse Ox O2 Delivery O2 Flow Rate FiO2 01/31/17 09:16 97.5 59 18 128/72 97 Room Air Laboratory Laboratory Tests Test 01/30/17 04:25 01/31/17 14:55 White Blood Count 7.6T/MM3 Red Blood Count 4.15M/MM3 Hemoglobin 13.1GM/DL Hematocrit 40.1% Mean Corpuscular Volume 96.6UM3 Mean Corpuscular Hemoglobin 31.6UUG Mean Corpuscular Hemoglobin Concent 32.7GM/DL RDW Standard Deviation 41.5FL Platelet Count 211T/MM3 Mean Platelet Volume 9.4UM3 Immature Granulocyte % (Auto) 0.1% Neutrophils (%) (Auto) 58.5% Lymphocytes (%) (Auto) 24.4% Monocytes (%) (Auto) 10.8% Eosinophils (%) (Auto) 5.4% Basophils (%) (Auto) 0.8% Absolute Immature Granulocyte (auto 0.01T/MM3 Absolute Neutrophils (auto) 4.5T/MM3 Absolute Lymphocytes (auto) 1.9T/MM3 Absolute Monocytes (auto) 0.8T/MM3 Absolute Eosinophils (auto) 0.4T/MM3 Absolute Basophils (auto) 0.1T/MM3 Turbidity < 20 Sodium Level 139MEQ/L Potassium Level 3.9MEQ/L Chloride Level 104MEQ/L Carbon Dioxide Level 26MEQ/L Anion Gap 9MEQ/L Blood Urea Nitrogen 21.0MG/DL Creatinine 1.1MG/DL Glomerular Filtration Rate Calc 49 BUN/Creatinine Ratio 19RATIO Glucose Level 102MG/DL Calculated Osmolality 271MOSM/KG Calcium Level 9.5MG/DL Icterus Index < 2 Chemistry Specimen Hemolysis 21 Anticipated Interventions The patient requires inpatient IRF care for PT, OT, and/or ST for residuals remaining from [] resulting in muscular weakness and strength deficits. ROM Deficit: Left Lower Extremity, Right Lower Extremity Strength Deficits: Left Lower Extremity, Right Lower Extremity FIM Scores Ambulation Distance: 121 Ambulation Ability: 4 Minimal Assistance Ambulation Assistance Needed: 1 Person Stairs: 2 Maximum Assistance Number of Stairs: 6 Eating Ability-FIM: 5 Supervision/Setup Grooming Ability: 5 Supervision/Setup Bathing Ability: 4 Minimal Assistance Upper Body Dressing Ability: 4 Minimal Assistance Dressing-Upper FIM Score Reaso: Pt. required min assist to don TLSO brace. Lower Body Dressing Ability: 4 Minimal Assistance Lower Body Dressing Assistance: 1 Person Toileting Ability: 4 Minimal Assistance Toileting Assistance Needed: 1 Person Bed Transfer Ability: 5 Supervision/Setup Bed Transfer Assistance Needed: 1 Person Chair Transfer Ability: 4 Minimal Assistance Chair Transfer Assistance Need: 1 Person Overall Toilet / Commode Trans: 5 Supervision/Setup Toilet / Commode Transfer Assi: 1 Person Tub / Shower Transfer Ability: 5 Supervision/Setup Tub / Shower Transfer Ass[place]: 1 Person Comprehension Ability: 6 Modified Nye Comprehension FIM Score Reason: glasses Social Interaction: 6 Modified Nye Problem Solvin+ Complete Nye Expression Ability: 7+ Complete Nye Memory: 7+ Complete Nye Current Functional Status Failed Alternative Therapy: Arrived from acute care Patient Requires * Patient has been determined to have significant functional limitations requiring at least two therapy disciplines. * Rehabilitation medical practitioner will provide admission approval, assessment and oversight and program coordination at least daily. * Intensive rehabilitative nursing services on site and available 24 hours a day. * The treatment plan will be developed within 24 hours of admission. * Interdisciplinary and goal oriented treatment by professional nursing, social media coordinator, and rehabilitation therapist. * Interdisciplinary team meeting weekly inclusive of ongoing comprehensive discharge planning. First team meeting by . Weekly meetings to follow. * Rehab Physician is the team meeting leader. * Pharmacy and diagnostic services will be available. * Ongoing comprehensive rehab program with at least 2 disciplines and greater than or equal to 3 hours a day, 5 days a week. Limitations require: limited mobility, ADL impairment Physical Therapy Minutes: 90 Occupational Therapy Minutes: 90 Therapy The patient is to receive therapy at least 5 days a week. PT Treatment Plan: Therapeutic Exercise, Gait Training, Manual Therapy, Functional Activities, Patient/Family Education, Balance/Proprioception Treatment Plan Frequency: five times per week Treatment Plan Duration: two weeks Plan of Care Comment: 6x/wk for 1st wk; 5x/wk for 2nd and 3rd wks. OT Treatment Plan: ADL's (basic care), Ther. Exercise for ADL's, UE Functional Training, Balance Training, Pt./Family Education, IADL's OT Treatment Plan Frequency: five times per week OT Treatment Plan Duration: three weeks Anticapted LOS/Outcomes Anticipated Functional Outcome Should return to pre injury function and pain levels. Anticipated DC Destination: Home, self correction Safety Plan The patient will be provided with the development of a Home Safety Plan for return to a home or home-like environment and to ensure safety post discharge. Complicating Conditions Complications since IRF admit: (1) Chronic pain Comments: Currently on Fentanyl 50 mcg patch and [place]den 5mg, 2 tabs q 4 hours. No increase in meds and will work to gradually decrease during admission. (2) Lumbar burst fracture Status: Acute Comments: PT and OT aware and will tailor treatment to this. (3) Depression Status: Chronic Comments: Cont with current meds. Consult psych if worsening. Exercise annd increasing mobility should help. (4) History of alcoholism Status: Resolved Comments: Aware adn will be cautious but appropriate with pain meds. Other Contributing Factors: Plan to Avoid Complications Barriers to Attaining Goals: weakness, balance, endurance, pain control, medical limitation Plan to Avoid Complications The patient cannot receive this care in a lesser intensive setting such as Custodial or Outpatient Therapy due to the patient requiring the followingmedical supervision due to alcoholism, occular cancer, hx of chronic pain The patient requires oversight by a rehabilitation physician to manage their rehabilitation treatment plan and the multidisciplinary approach to care that can only be provided in an IRF and requires a multidisciplinary approach to care , provided by professional PTs, OTs, STs, dieticians, RTs, rehabilitation nurses and is not available in lesser levels of care. The frequency and duration for therapy, as recommended by the professional Rehabilitation therapists, meet the patient's initial rehabilitation treatment plan needs and will be further evaluated on a weekly basis for progress and/or changes needed. LUIS MIGUEL GOSS MD Jan 31, 2017 15:39
[2017-01-31 15:42] LABS: ALBUMIN 3.7 G/DL (3.5-5.0); ALBUMIN/GLOBULIN RATIO 1.3 RATIO (1.1-2.2); ALKALINE PHOSPHATASE 68 U/L (38-126); ALT (SGPT) 45 U/L (9-52); ANION GAP 7 MEQ/L (5-15); AST (SGOT) 47 U/L (14-36); BUN/CREATININE RATIO 25 RATIO (6-26); CALCIUM 9.7 MG/DL (8.4-10.2); CHLORIDE 102 MEQ/L (98-107); CO2 - CARBON DIOXIDE 29 MEQ/L (22-30); CREATININE 1.3 MG/DL (0.7-1.2); GLOMERULAR FILTRATION RATE 40; GLUCOSE 108 MG/DL (65-110); POTASSIUM 3.8 MEQ/L (3.6-5); SODIUM 138 MEQ/L (134-144); TOTAL PROTEIN 6.6 G/DL (6.3-8.2)
[2017-01-31 16:23] VITALS: BP 124/68; PULSE 60; RESP 18; TEMP 97.7; O2SAT 96
--- NOTE | 2017-01-31 18:27 | NUR ---
SHIFT SUMMARY PT HAS BEEN COOPERATIVE. HAS BEEN OUT TO DINING ROOM FOR MEALS. PT AMBULATES WITH A TSLO BRACE, FWW AND GAIT BELT. PT IS ABLE TO MAKE NEEDS KNOWN. PT HAS WORKED WITH THERAPY. PT COMPLAINS OF PAIN AT AN 8-10/10, PT REQUESTS PRN PAIN MEDS BEFORE OR RIGHT AT TIME THEY ARE AVAILABLE. PT REQUIRES CUEING TO REMEMBER BACK PRECAUTIONS. PT IS CURRENTLY RESTING IN ROOM.
[2017-01-31] MEDS: POLYETHYL.GLYCOL 3350 PACKET 17gm PO SCH (22:26)
[2017-01-31] MEDS: TEMAZEPAM 15 MG CAPSULE PO SCH (22:30)
[2017-02-01 00:38] VITALS: BP 157/79; PULSE 69; RESP 14; TEMP 98.2; O2SAT 97
[2017-02-01 08:00] VITALS: PULSE 62; RESP 16
--- NOTE | 2017-02-01 08:05 | NUR ---
Summary Pt had complaint of pain controlled with norco 7.5 x2. Pt slept most of the night. When pt woke, and staff assisted pt to the BR, pt had complaint of pain. This nurse went to the room to offer pain med but pt was asleep. Pt slept through the rest of the night and was woken by this nurse at 0700. [place] 7.5 x2 given at pt request. pt awake in bed. call light and water in reach
[2017-02-01 08:16] VITALS: BP 141/75; PULSE 60; RESP 16; TEMP 97.8; O2SAT 95
[2017-02-01] MEDS: ARTIFICIAL TEARS 15 ML BOTTLE RIGHT EYE SCH ×2 (08:28→21:47)
[2017-02-01] MEDS: BuPROPion XL (24 HR) 150 MG TABLET PO SCH (08:29)
[2017-02-01] MEDS: ASPIRIN 325 MG TABLET PO SCH (08:29)
[2017-02-01] MEDS: CALCIUM POLYCARBOPHIL 625 MG TABLET PO SCH (08:29)
[2017-02-01] MEDS: VITAMIN E 200 UNIT CAPSULE PO SCH (08:29)
[2017-02-01] MEDS: POLYETHYL.GLYCOL 3350 PACKET 17gm PO SCH ×2 (08:29→21:47)
[2017-02-01] MEDS: CALCITONIN NASAL SPRAY 200 UNITS NAS SCH (08:29)
[2017-02-01] MEDS: PrednisoLONE 1% EYE DROPS 5ml LEFT EYE SCH (08:29)
[2017-02-01] MEDS: VITAMIN B COMP + C TABLET PO SCH (08:30)
[2017-02-01] MEDS: DOCUSATE SODIUM 100 MG CAPSULE PO SCH ×2 (08:30→21:48)
[2017-02-01] MEDS: CHOLECALCIFEROL 1,000 UNIT TABLET PO SCH (08:30)
[2017-02-01] MEDS: MULTIVITAMIN + MINERAL TABLET PO SCH (08:30)
[2017-02-01] MEDS: GLUCOSAMINE 500 MG CAPSULE PO SCH (08:30)
[2017-02-01] MEDS: CALCIUM 600mg + VIT D 400 TABLET PO SCH (08:31)
[2017-02-01] MEDS: ASCORBIC ACID 500 MG TABLET PO SCH (08:31)
[2017-02-01] MEDS: HYDROCHLOROTHIAZIDE 12.5 MG CAPSULE PO SCH (08:31)
[2017-02-01] MEDS: SERTRALINE 100 MG TABLET PO SCH (08:31)
[2017-02-01] MEDS: FOLIC ACID 1 MG TABLET PO SCH (08:31)
[2017-02-01] MEDS: MILK OF MAGNESIA 30 ML SUSP PO SCH (08:39)
--- NOTE | 2017-02-01 13:21 | NUR ---
ALLEN PEDERSEN IS 9 Addendum: 02/01/17 at 1321 by ANCA CARDONA Amended: Links added.
--- NOTE | 2017-02-01 14:08 | CONSPD ---
Consultation Info Date DATE: 02/01/17 TIME: 13:58 Impression/Recommendation Impression/Recommendation: (1) Osteopenia Status: Chronic Recommendation: DEXA scan to further eval bone density. Recheck in the office in about 4 weeks. I spent 50 min in patient evaluation and contact. Ortho HPI HPI Elements HPI fell at home in her kitchen. Slipped on a rug. Very active. Dances in competition. History of ETOH abuse but none in the past 10 years. Smokes occasionally, not regularly.Xray shows markedly compressed L1 fx. Review of Systems Constitutional: DENIES: fever Cardiovascular DENIES: chest pain Pulmonary Respiratory: DENIES: cough, dyspnea GI Upper Abdomen: DENIES: vomiting Lower Abdomen: constipation Musculoskeletal General: pain (low back) Integumentary Skin: other (Chin abrasion), DENIES: rash Neurological General: DENIES: headache Psychiatric Psychiatric: depression All Other Systems Reviewed Past Medical History Adult Past Medical History Patient History: (1) Chronic back pain (2) Hypertension (3) Allergic rhinitis (4) Asthma (5) Degenerative disc disease (6) Kyphoscoliosis and scoliosis (7) Depression (8) Blindness of right eye (9) History of rheumatic fever (10) History of alcoholism Problem List Updates Chronic pain myopathy Surgical History Patient's Surgical History: Hysterectomy Colonoscopy Femoral bypass Right eye prosthesis Right heel/ankle fracture repair Current Medications Ascorbic Acid (Ascorbic Acid) 500 Mg Tablet, 1 TAB PO DAILY, (Reported) Last Taken: Unknown Dose on 01/29/17 Aspirin (Aspirin) 325 Mg Tablet, 325 MG PO DAILY, (Reported) Last Taken: Unknown Dose on 01/29/17 Bupropion HCl (Bupropion Xl) 150 Mg Tab.er.24h, 150 MG PO DAILY, (Reported) Last Taken: Unknown Dose on 01/29/17 Calcitonin,[place],Synthetic (Calcitonin -[place]) 3.7 Ml [place].pump, 1 SPRAY [place] DAILY, (Reported) Last Taken: Unknown Dose on Unknown Date & Time Calcium Carbonate/Vitamin D3 (Calcium + Vitamin D Tablet) 1 Each Tablet, 1 TAB PO DAILY, (Reported) Last Taken: Unknown Dose on 01/29/17 Calcium Polycarbophil (Fiber Lax) 625 Mg Tablet, 1 TAB PO DAILY, (Reported) Last Taken: Unknown Dose on Unknown Date & Time Cholecalciferol (Vitamin D3) (Vitamin D3) 2,000 Unit Tablet, 1 TAB PO DAILY, (Reported) Last Taken: Unknown Dose on 01/29/17 Citalopram Hydrobromide (Citalopram HBr ) 40 Mg Tablet, 40 MG PO DAILY, (Reported) Dextran 70/Hypromellose (Artificial Tears Eye Drops) 15 Ml Drops, 2 DROP RIGHT EYE BID, (Reported) Last Taken: Unknown Dose on Unknown Date & Time Docusate Sodium (Docusate Sodium) 100 Mg Capsule, 200 MG PO HS PRN for CONSTIPATION, (Reported) Last Taken: Unknown Dose on 01/28/17 Fentanyl (Fentanyl 75 mcg/hr) 1 Each Patch.td72, 1 PATCH TOP Q72H, (Reported) Last Taken: Unknown Dose on 01/27/17 1020 Glucosamine/D3/Boswellia Valeri ( Osteo Bi-Flex Tablet) 1 Each Tablet, 1 TAB PO DAILY, (Reported) Last Taken: Unknown Dose on 01/29/17 Hydrochlorothiazide ( Hydrochlorothiazide) 12.5 Mg Tablet, 12.5 MG PO DAILY, (Reported) Last Taken: Unknown Dose on 01/29/17 Hydrocodone/Acetaminophen (Lortab 7.5- 325 mg Tablet) 1 Each Tablet, 1-2 TAB PO Q4H PRN for PAIN, (Reported) Last Taken: Unknown Dose on 01/29/17 1245 Levomefolate Calcium (l- Methylfolate) 15 Mg Tablet, 1 TAB PO DAILY, (Reported) Last Taken: Unknown Dose on Unknown Date & Time Multivitamin (Multivitamins ) 1 Each Tablet, 1 TAB PO DAILY, (Reported) Last Taken: Unknown Dose on 01/29/17 Prednisolone Acetate (Omnipred) 10 Ml Drops.susp, 1 DROP LEFT EYE DAILY, (Reported) Last Taken: Unknown Dose on Unknown Date & Time Sertraline (Sertraline) 100 Mg Tablet, 100 MG PO DAILY, (Reported) Last Taken: Unknown Dose on 01/29/17 Temazepam (Temazepam) 15 Mg Capsule, 30 MG PO HS PRN for SLEEPLESSNESS, (Reported) Last Taken: Unknown Dose on 01/28/17 Vitamin B Complex (Vitamin B Complex) 1 Each Tablet, 1 TAB PO DAILY, (Reported) Last Taken: Unknown Dose on 01/29/17 Vitamin E (Dl,Tocopheryl Acet) ( Vitamin E) 100 Unit Capsule, 1 CAP PO DAILY, (Reported) Last Taken: Unknown Dose on 01/29/17 Allergies Allergies: Coded Allergies: doxycycline (Verified Allergy, Severe, FACE AND THROAT SWELLS, 01/27/17) ibuprofen (Verified Allergy, Severe, FACIAL SWELLING, 01/27/17) Family History Family History: Noncontributory Vaccines NOT THIS SEASON No NOT CURRENT PER PT Social History Smoking Status: Current some day smoker Substance Use Type: opiates Alcohol Intake: none Marital Status: Advance Directives: Yes DPOA for Healthcare Only (Dipti Latif & Manish Latif) Physical Exam Cardiovascular Capillary Refill: <2 sec Laboratory Laboratory Tests Test 01/31/17 14:55 Turbidity < 20 Sodium Level 138MEQ/L Potassium Level 3.8MEQ/L Chloride Level 102MEQ/L Carbon Dioxide Level 29MEQ/L Anion Gap 7MEQ/L Blood Urea Nitrogen 32.0MG/DL Creatinine 1.3MG/DL Glomerular Filtration Rate Calc 40 BUN/Creatinine Ratio 25RATIO Glucose Level 108MG/DL Calculated Osmolality 274MOSM/KG Calcium Level 9.7MG/DL Total Bilirubin 0.50MG/DL Icterus Index < 2 Aspartate Amino Transf (AST/SGOT) 47U/L Alanine Aminotransferase (ALT/SGPT) 45U/L Alkaline Phosphatase 68U/L Total Protein 6.6G/DL Albumin 3.7G/DL Globulin 2.9G/DL Albumin/Globulin Ratio 1.3RATIO 25-Hydroxy Vitamin D Total Pending 25-Hydroxy Vitamin D2 Pending 25-Hydroxy Vitamin D3 Pending Chemistry Specimen Hemolysis < 15 Case Report- BMD Demographics Date of Initial Screening: Feb 01, 2017 Age 71 Date of Fracture: Jan 26, 2017 Gender: Female If female: postmenopausal Race White Height (Feet): 5 Height (Inches): 8.00 Weight (Kilograms): 50.500 Site of Current Fracture Axial: spine (lumbar) Fracture History History of fracture age 50 or: Yes Fracture History: tarsal bone Age at time of fractures 65 Risk Factors Lifestyle Factors: current smoking (within last 12 months) Medications at time of fractur: PPIs History of Rheumatoid Arthriti: No Secondary Osteoporosis d/t con: No Medication Use Nutritional Supplements: calcium, vitamin d Treatment/Counseling Calcium 1200 mg/day (in divide: yes Vitamin D at least 800-1000 IU: yes Regular Weight Bearing and Mus: yes Fall Prevention: yes Smoking Cessation: yes Alcohol Comsumption (no more t: yes Pharmacologic Treatment Recomend Pharmacologic Therapy: No Therapy not recommended due to: bone health assessment ongoing Pharmacologic Therapy Initiate: No Reason Not Initiating Therapy: tx planned for near future Bone Mineral Density Testing Was BMD Testing Recommended?: Yes BMD Testing: planned/scheduled Written Communication Was pt provided with a letter: Yes Letter Provided to pts PCP?: Yes Discharge Status: routine discharge to home Additional Information Comments discussed saftey at home with respect to throw rugs and clutter. Also talked about smoking cessation. LUIS MIGUEL REYES MD Feb 01, 2017 14:03
[2017-02-01] MEDS: MILK OF MAGNESIA 30 ML SUSP PO PRN (15:51)
[2017-02-01 16:05] VITALS: BP 142/69; PULSE 69; RESP 16; TEMP 98.2; O2SAT 97
--- NOTE | 2017-02-01 16:47 | NUR ---
CM SPOKE WITH PT, RE: DC PLANNING AND POTENTIAL DC DATE OF SAT, BASED ON TEAM'S MEETING. SHE BECAME UPSET AND SAID SHE DOES NOT THINK HER PAIN IS UNDER CONTROL ENOUGH TO BE SENT HOME. EXPLAINED THAT PER TEAM, SHE IS DOING WELL WITH PT/OT AND MIGHT BE ABLE TO BE RELEASED ON SAT; EXPLAINED THE PAIN MEDICATION WILL BE ADDRESSED BY DOCTOR. SHE SAID SHE WANTS TO TALK TO THE DOCTOR ABOUT THIS; THIS WORKER RELAYED THIS TO RN. DISCUSSED TRANSPORTATION HOME: SHE SAID PROBABLY ONE OF HER NEIGHBORS OR MAYBE HER SISTER COULD PICK HER UP. Addendum: 02/01/17 at 1656 by ANCA CARDONA Amended: Links added.
--- NOTE | 2017-02-01 17:26 | NUR ---
STATUS pt is alert and oriented X3. pt has had some pain and was given prn pain meds as charted. pt gets up with assist X1 using a gaitbelt and walker and wearing a brace. pt is on room air. pt has worked with PT and OT this shift. pt even asked to go for a walk, stating if she is dismissed Sunday she needs to build up her strength. pt is eating dinner. pt denies needing anything at this time. will continue to monitor pt. Addendum: 02/01/17 at 1745 by VALERIA HERNÁNDEZ RN pt was also given prn milk of magnesia because she states, it has been days since she has had a bowel movement.
[2017-02-01] MEDS: TEMAZEPAM 15 MG CAPSULE PO SCH (21:48)
[2017-02-01 22:19] VITALS: BP 139/80; PULSE 68; RESP 18; TEMP 97.9; O2SAT 100
--- NOTE | 2017-02-02 07:42 | NUR ---
SHIFT SUMMARY Patient requests pain meds every 4 hours 2 tabs and to be awakened for them. This was given to her through the night. She requires only CGA for ambulation, transfers. Expressed frustration that she is supposed to d/c Sat. when she still has so much pain. We talked about her functional ability and that the pain could be managed ongoing with her PCP. She has requested to speak to Dr. Huynh today. Message relayed to him. Snacked throughout the night. Alert/oriented x 3
[2017-02-02 08:00] VITALS: BP 159/80; PULSE 80; RESP 16; TEMP 98; O2SAT 95
--- NOTE | 2017-02-02 08:30 | NUR ---
NURSING ASSESSMENT COMPLETED THIS MORNING PATIENT LAYING IN BED ALERT AND ORIENTED COMPLAINS OF BACK PAIN BUT STATES ITS NO VERY BAD HAD A PRN PAIN PILL EARLY THIS MORNING. BED IN LOW POSITION AND BED ALARM ACTIVATED WILL MONITOR.
--- NOTE | 2017-02-02 08:37 | NUR ---
High Risk Screen R/T to BMI of 16.9 Diet : Regular Diet, intake is 25%-100% of meals Patient's appetite has increased. She is eating 25%-100% of her meals and snacking throughout the night by nurse report. Patient requested that we take gena medrano off of her meal order and add an additional brownie in her HS snack with 2% milk. RIKKI available at 1408 Addendum: 02/02/17 at [address] Student charting reviewed by RIKKI
[2017-02-02] MEDS: MULTIVITAMIN + MINERAL TABLET PO SCH (08:54)
[2017-02-02] MEDS: GLUCOSAMINE 500 MG CAPSULE PO SCH (08:54)
[2017-02-02] MEDS: HYDROCHLOROTHIAZIDE 12.5 MG CAPSULE PO SCH (08:54)
[2017-02-02] MEDS: FOLIC ACID 1 MG TABLET PO SCH (08:54)
[2017-02-02] MEDS: ASPIRIN 325 MG TABLET PO SCH (08:55)
[2017-02-02] MEDS: DOCUSATE SODIUM 100 MG CAPSULE PO SCH ×2 (08:55→21:38)
[2017-02-02] MEDS: CALCIUM 600mg + VIT D 400 TABLET PO SCH (08:55)
[2017-02-02] MEDS: VITAMIN E 200 UNIT CAPSULE PO SCH (08:55)
[2017-02-02] MEDS: CALCIUM POLYCARBOPHIL 625 MG TABLET PO SCH (08:55)
[2017-02-02] MEDS: BuPROPion XL (24 HR) 150 MG TABLET PO SCH (08:55)
[2017-02-02] MEDS: SERTRALINE 100 MG TABLET PO SCH (08:56)
[2017-02-02] MEDS: VITAMIN B COMP + C TABLET PO SCH (08:56)
[2017-02-02] MEDS: ASCORBIC ACID 500 MG TABLET PO SCH (08:56)
[2017-02-02] MEDS: MILK OF MAGNESIA 30 ML SUSP PO SCH (08:59)
[2017-02-02] MEDS: CHOLECALCIFEROL 1,000 UNIT TABLET PO SCH (08:59)
[2017-02-02] MEDS: CALCITONIN NASAL SPRAY 200 UNITS NAS SCH (09:00)
[2017-02-02] MEDS: ARTIFICIAL TEARS 15 ML BOTTLE RIGHT EYE SCH ×2 (09:00→21:41)
[2017-02-02] MEDS: PrednisoLONE 1% EYE DROPS 5ml LEFT EYE SCH (09:00)
[2017-02-02] MEDS: POLYETHYL.GLYCOL 3350 PACKET 17gm PO SCH ×2 (09:11→21:40)
--- NOTE | 2017-02-02 10:46 | PNPDOC ---
Subjective Date DATE: 02/02/17 TIME: 10:27 Subjective Marya is seen today in follow up for back pain. She has voiced concern with discharge multiple times to numerous staff today. On examination she is sitting on the edge of the bed and is working with PT. She feels that pain continues to be a problem as she feels that it is not always controlled however refused to be woken up at night for pain pills. She reports that currently her Fentanyl patch has come off and is no longer working. She questions about the possibility of home health. Voiding without difficulty and bowels are moving regularly. BP 159/80. Objective Vital Signs Vital signs Vital Signs Date Time Temp Pulse Resp B/P Pulse Ox O2 Delivery O2 Flow Rate FiO2 02/02/17 08:00 98.0 80 16 159/80 95 Room Air Height (Feet): 5 Height (Inches): 8.00 Weight (Kilograms): 50.500 General General Appearance: Alert, Orientated x 3, Cooperative, No Acute Distress Eyes (Brief) Eyes: FOUND: EOMI ENMT (Brief) ENMT: FOUND: mucosa moist, normal dentition, NOT FOUND: pharnyx erythema Neck (Brief) Neck: FOUND: midline, NOT FOUND: adenopathy, carotid bruits, tracheal deviation Respiratory (Brief) Respiratory: FOUND: clear all jara, equal bilaterally, NOT FOUND: wheezes Cardiovascular (Brief) Cardiac: FOUND: regular rate, regular rhythm, NOT FOUND: murmur, pedal edema Capillary Refill: <2 sec Abdomen (Brief) Abdominal: FOUND: BS normo active x4, soft, NOT FOUND: distended, tender Lymphatic (Brief) Lymphatic: NOT FOUND: adenopathy Musculoskeletal (Brief) Musculoskeletal: FOUND: tenderness (Back pain) Integumentary (Brief) Integumentary: FOUND: dry, pink, warm Neurologic (Brief) Neurological: FOUND: cranial 2-12 intact Psychiatric (Brief) Psychiatric: FOUND: alert, attentive, normal affect, oriented Laboratory Laboratory Laboratory Tests 01/31/17 14:55 Assessment & Plan Problems: (1) Lumbar burst fracture Status: Acute (2) Degenerative disc disease Status: Chronic (3) Kyphoscoliosis and scoliosis Status: Chronic (4) Depression Status: Chronic (5) Allergic rhinitis Status: Chronic (6) Hypertension Status: Chronic (7) Asthma Status: Chronic (8) Chronic back pain Status: Chronic (9) Blindness of right eye Status: Chronic (10) History of rheumatic fever Status: Resolved (11) History of alcoholism Status: Resolved Plan/Intensity of Service 02/02/19 25 minutes of time was spent with coordination of care including time with patient, Speaking with CM, IRU director, and Dr Huynh. Discussed with patient that she is reaching her goals adequately with physical therapy. She is able to walk significant distances and tolerating well. In regards to pain control we will continue with fentanyl 75 micrograms. Will replace patches as it is not currently on. Did offer Lidoderm patch, however, patient declined. Will continue with [place] orally for breakthrough pain, as well as Flexeril for muscle spasms. Patient questions possibility of home health for additional assistance. Spoke with caseworkerIsac. She will evaluate, if patient would meet criteria for home health assistance. Continue MiraLAX, fiber lax, Colace for bowel motivation Will re-evaluate later today. Possible discharge Saturday 02/03 or Monday 02/05. Code Status Full Code Hospital Course Summary Disclaimer The hospital course summary below is not to be considered part of the above Progress Note. Hospital Course Summary 02/02/19 25 minutes of time was spent with coordination of care including time with patient, Speaking with ALLEN, IRU director, and Dr Huynh. Discussed with patient that she is reaching her goals adequately with physical therapy. She is able to walk significant distances and tolerating well. In regards to pain control we will continue with fentanyl 75 micrograms. Will replace patches as it is not currently on. Did offer Lidoderm patch, however, patient declined. Will continue with [place] orally for breakthrough pain, as well as Flexeril for muscle spasms. Patient questions possibility of home health for additional assistance. Spoke with caseworkerIsac. She will evaluate, if patient would meet criteria for home health assistance. Continue MiraLAX, fiber lax, Colace for bowel motivation Will re-evaluate later today. Possible discharge Saturday 02/03 or Monday 02/05. ADELSO ACE APRN Feb 02, 2017 10:41
[2017-02-02] MEDS: FENTANYL 75MCG/HR PATCH TD SCH (13:10)
[2017-02-02] MEDS ORDERED: FENTANYL PATCH REMOVAL TD SCH (13:30)
--- NOTE | 2017-02-02 13:40 | NUR ---
SHIFT SUMMARY PATIENT COMPLAINED OF BACK PAIN AND MEDICATED WITH PRN NORCO 2 TABS ALSO FENTANYL PATCH PLACED ON HER BACK PT CONCERNED ABOUT DISCHARGE TOMORROW AND WOULD LIKE THE PCP TO INCREASE HER PAIN PATCH DOSE FROM 75MCG TO 100MCG ADELSO SIEGEL MADE AWARE AND TALKED TO PATIENT. UP THIS MORNING FOR BOTH MEALS WITH ASSIST X1 PT AMBULATES USE WITH FWW AND HAS STABLE GAIT. WILL CONTINUE TO MONITOR.
[2017-02-02 14:37] LABS: ANION GAP 9 MEQ/L (5-15); BUN/CREATININE RATIO 23 RATIO (6-26); CALCIUM 9.3 MG/DL (8.4-10.2); CHLORIDE 102 MEQ/L (98-107); CO2 - CARBON DIOXIDE 29 MEQ/L (22-30); CREATININE 1.2 MG/DL (0.7-1.2); GLOMERULAR FILTRATION RATE 44; GLUCOSE 91 MG/DL (65-110); POTASSIUM 3.7 MEQ/L (3.6-5); SODIUM 140 MEQ/L (134-144)
[2017-02-02 16:10] VITALS: BP 148/77; PULSE 80; RESP 13; TEMP 98.6; O2SAT 97
--- NOTE | 2017-02-02 16:24 | NUR ---
CM SPOKE WITH PT, RE: HER DC PLAN. SHE STATED SHE WILL DC HOME TOMORROW (SAT), SINCE SHE HAS MORE FRIEND SUPPORT AVAILABLE ON THE WEEKEND. DISCUSSED HOME HEALTH; PROVIDED PROVIDER LIST, SHE SAID SHE HAD NO PREFERENCE. THIS WORKER EXPLAINED [facility], DISCLOSED THE FINANCIAL RELATIONSHIP, AND SHE WAS AGREEABLE TO THIS. SHE WAS UNSURE IF SHE WANTED HOME HEALTH; THIS WORKER EXPLAINED IT FURTHER AND ANSWERED HER QUESTIONS, AND THEN SHE WAS AGREEABLE TO HAVING HOME HEALTH. LATER, THIS WORKER AND OT STOPPED BY PT'S ROOM TO INQUIRE IF SHE HAS A WALKER AT HOME IN CASE SHE NEEDS IT. FRIEND WAS PRESENT, AND PT AND FRIEND SAID FRIEND HAD FOUND A WALKER FOR PT, SO PT DOES NOT NEED ANOTHER ONE. SHE HAS ONE AT HOME. PT HAD NO FURTHER QUESTIONS/NEEDS FOR THIS WORKER ABOUT HER DC.
--- NOTE | 2017-02-02 16:33 | NUR ---
Per requesting of CHRISTAL Wong, spoke with patient to confirm discharge plans. Patient stated she would prefer to discharge on 02/03. Patient observed to be lying in bed with right leg near her face and observed to reposition self in bed without grimace or complaint of pain. Patient voiced appreciation for the help she received while on IRU. Pt voiced question about follow-up appt. with orther. CM and CHRISTAL notified. CM to follow-up on ortho appt.
[2017-02-02] MEDS ORDERED: POLY17PO18 PO (16:41)
[2017-02-02] MEDS ORDERED: FENT1PAT TOP (16:41)
[2017-02-02] MEDS ORDERED: CYCL-375 PO (16:41)
[2017-02-02] MEDS ORDERED: HYDR-4010 PO (16:41)
--- NOTE | 2017-02-02 16:57 | NUR ---
CM REVIEWED IM LETTER WITH PT; PT SIGNED IT AND HAD NO CONCERNS/QUESTIONS ABOUT IT. SHE SAID SHE FEELS MORE COMFORTABLE ABOUT DC TOMORROW (SAT, 3-18) BECAUSE HER SON FROM [place] WILL BE HERE TO PICK HER UP AND BE WITH HER OVER THE WEEKEND. PROVIDED THIS WORKER'S CONTACT INFO, ENCOURAGED HER TO CALL IF SHE HAS QUESTIONS ON SUNDAY, AND EXPLAINED SHE COULD CALL THE UNIT IF SHE HAD QUESTIONS ON SUN OR SUN.
--- NOTE | 2017-02-02 18:24 | NUR ---
END SHIFT PATIENT ALERT / ORIENTED COMPLAINED OF BACK PAIN MOST OF THE DAYS HAS HEATING PAD AND FENTANYL PAIN PATCH ON HER LOWER BACK APPETITE IS GOOD. VOICES NEEDS TO GO HOME TOMORROW ALTHOUGH PATIENT IS CONCERNED ABOUT CONTROLLING HER PAIN MADE AWARE PCP WILL WRITE PRESCRIPTION FOR PAIN MEDICATION ALSO EDUCATED ABOUT POSITION CHANGES FREQUENTLY AND USE OF HEATING PAD. PARTICIPATED IN THERAPY AND AMBULATES TO DINING ROOM FOR ALL THREE MEALS ASSIST X1 WITH WALKER.
[2017-02-02 20:31] VITALS: BP 148/71; PULSE 65; RESP 16; TEMP 98.2; O2SAT 97
[2017-02-02] MEDS: TEMAZEPAM 15 MG CAPSULE PO SCH (21:39)
--- NOTE | 2017-02-03 05:46 | NUR ---
SHIFT SUMMARY Pt has had PRN pain meds as often as she can. She did ask about increased Fentanyl patch but nothing further mentioned when reminded that Maris Wong had already considered that request and had said no. She states she is happy with her discharge plan and will be glad to return home on Sat. with home health. Supervision for Ambulation, toileting tasks. She snacks throughout the night. Calls for bathroom frequently, but states she has had that problem for a while and is going to see her urologist about it after she discharges.
[2017-02-03] MEDS: PrednisoLONE 1% EYE DROPS 5ml LEFT EYE SCH ×2 (09:00→10:32)
[2017-02-03] MEDS: CALCITONIN NASAL SPRAY 200 UNITS NAS SCH ×2 (09:00→10:33)
[2017-02-03] MEDS: HYDROCHLOROTHIAZIDE 12.5 MG CAPSULE PO SCH (09:08)
[2017-02-03] MEDS: MULTIVITAMIN + MINERAL TABLET PO SCH (09:08)
[2017-02-03] MEDS: CALCIUM 600mg + VIT D 400 TABLET PO SCH (09:08)
[2017-02-03] MEDS: DOCUSATE SODIUM 100 MG CAPSULE PO SCH (09:08)
[2017-02-03] MEDS: FOLIC ACID 1 MG TABLET PO SCH (09:08)
[2017-02-03] MEDS: CALCIUM POLYCARBOPHIL 625 MG TABLET PO SCH (09:09)
[2017-02-03] MEDS: ASPIRIN 325 MG TABLET PO SCH (09:09)
[2017-02-03] MEDS: CHOLECALCIFEROL 1,000 UNIT TABLET PO SCH (09:09)
[2017-02-03] MEDS: GLUCOSAMINE 500 MG CAPSULE PO SCH (09:09)
[2017-02-03] MEDS: ASCORBIC ACID 500 MG TABLET PO SCH (09:10)
[2017-02-03] MEDS: VITAMIN B COMP + C TABLET PO SCH (09:10)
[2017-02-03] MEDS: BuPROPion XL (24 HR) 150 MG TABLET PO SCH (09:10)
[2017-02-03] MEDS: SERTRALINE 100 MG TABLET PO SCH (09:10)
[2017-02-03] MEDS: POLYETHYL.GLYCOL 3350 PACKET 17gm PO SCH (09:10)
[2017-02-03] MEDS: VITAMIN E 200 UNIT CAPSULE PO SCH (09:10)
[2017-02-03] MEDS: MILK OF MAGNESIA 30 ML SUSP PO SCH (09:11)
[2017-02-03 09:45] VITALS: BP 195/83; PULSE 68; RESP 20; TEMP 98.3; O2SAT 96
--- NOTE | 2017-02-03 09:50 | NUR ---
PATIENT REPORTED "MY FENTANYL PATCH CAME OFF, COULD YOU PUT ANOTHER ONE ON?" PHYSICIAN WAS ROUNDING AT THE SAME TIME. PATIENT REPORTED SAME TO DR. GOSS. PATIENTS ROOM, BED AND HOSPITAL GOWN WERE SEARCHED FOR REPORTED MISSING FENTANYL PATCH. NO PATCH WAS FOUND.
[2017-02-03] MEDS: ARTIFICIAL TEARS 15 ML BOTTLE RIGHT EYE SCH (10:32)
[2017-02-03] MEDS: CYCLOBENZAPRINE 10 MG TABLET PO PRN (10:47)
[2017-02-03 10:51] VITALS: BP 175/90
--- NOTE | 2017-02-03 11:36 | NUR ---
Notified Carlota about elevated bp, notified her about patients request for lidoderm patch. will cont to monitor.
[2017-02-03] MEDS ORDERED: LIDOCAINE 5% PATCH TOP ONE (11:45)
--- NOTE | 2017-02-03 12:30 | NUR ---
SHIFT SUMMARY PATIENT ALERT AND ORIENTED. PATIENT C/O 10/10 PAIN IN BACK. SCHEDULED NORCO WAS RECENTLY GIVEN, PATIENT REPORTED TO DR. GOSS FENTANYL PATCH HAD COME OFF LAST NIGHT. PATIENTS BELONGING GOWN WAS SEARCHED, NO FENTANYL PATCH WAS FOUND. NO FENTANYL PATCH WAS ORDERED TO REPLACE MISSING PATCH. PATIENTS BP WAS ELEVATED, REPEAT BP WAS REPEATED WITH MANUAL BP CUFF. PATIENT WAS GIVEN FLEXERIL AND PRN NORCO WHEN PRN DUE. PATIENT REPORTED TO ME SHE HAD SPOKE WITH DR GOSS ABOUT ADDITION OF A LIDOCAINE PATCH. [facility] HOSPITALIST WAS NOTIFIED ABOUT ELEVATED BP AND PATIENTS REQUEST FOR LIDOCAINE PATCH. LIDOCCAINE PATCH ORDERED AND PLACED TO BACK. PATIENTS SON AT BEDSIDE. PATIENT WEARING TLSO BRACE AND WALKING WITH 1 ASSIST, SUPERVISION. BM AND URINE TODAY. CONTINENT OF BOWEL AND BLADDER.
--- NOTE | 2017-02-03 12:40 | NUR ---
DISCHARGE NOTE. PATIENT INSTRUCTED ON D/C MEDS, ACTIVITY, F/U APPTS, PRESCRIPTIONS. FENTANYL, NORCO, AND FLEXERIL PRESCRIPTION PLACED IN FRONT OF D/C PACKET AND GIVEN TO PATIENT AND SON. PATIENTS SON AND PATIENT VERBALIZED UNDERSTANDING. PATIENTS BELONGINGS WITH PATIENT, ARM BED REMOVED. PATIENT LEFT FLOOR VIA WC OUT FRONT DOOR.
--- NOTE | 2017-02-05 11:58 | DSPDOC ---
General Date Date DATE: 02/05/17 TIME: 11:51 Attending Physician Stevie Huynh MD Admitting Physician Stevie Huynh MD Consulting Physician Stevie Gillis MD Admitting Diagnosis L2 burst fracture, weakness Discharge Diagnosis Lumbar burst fracture, weakness History of Present Illness Pt has longstanding history of Chronic pain, but was active andfunctional prior to recent injury. She fell and received an L1 burst fracture with immediate increase in pain to an intolerable level. She was admitted and followed nonsurgically. At this time, she is unable to maintain her own adl's due to pain and limited mobility. She is willing to work minimum of 3 hours daily for PT and OT and wants to return home and live independently. 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 Hospital Course 02/02/19 25 minutes of time was spent with coordination of care including time with patient, Speaking with CM, IRU director, and Dr Huynh. Discussed with patient that she is reaching her goals adequately with physical therapy. She is able to walk significant distances and tolerating well. In regards to pain control we will continue with fentanyl 75 micrograms. Will replace patches as it is not currently on. Did offer Lidoderm patch, however, patient declined. Will continue with Hallie orally for breakthrough pain, as well as Flexeril for muscle spasms. Patient questions possibility of home health for additional assistance. Spoke with lead case manager, Isac. She will evaluate, if patient would meet criteria for home health assistance. Continue MiraLAX, fiber lax, Colace for bowel motivation Will re-evaluate later today. Possible discharge Saturday 02/03 or Monday 02/05. Problems: (1) Chronic back pain Status: Chronic Assessment & Plan: Patient has history of chronic back pain, presents on pain medication. We did have to increase her Duragesic patch while she was with us. She was discharged on Duragesic 75 g patch and oxycodone 10 mg, one to 2 tabs every 4 hours as needed for pain. Follow-up with her primary care physician and will hopefully be able to start weaning medication in the near future. (2) Lumbar burst fracture Status: Acute Assessment & Plan: Managed by orthopedics. Patient had some issues with safety , continue to stretch her back she felt it was more comfortable. Will continue with physical therapy as an outpatient and follow-up with her primary care provider. (3) Osteopenia Status: Chronic Assessment & Plan: Referred to bone care clinic (4) Depression Status: Chronic Assessment & Plan: Decline medication while admitted to the hospital. She'll follow-up with her primary care provider. DVT Prophylaxis: SCD'S Code Status Full Code Home Meds Active Scripts Polyethylene Glycol 3350 (Healthylax) 17 Gm Powd.pack, 17 G PO DAILY for 30 Days Prov:ADELSO ACE APRN 02/02/17 Cyclobenzaprine HCl (Cyclobenzaprine HCl) 10 Mg Tablet, 10 MG PO TID Y for MUSCLE PAIN, #30 TAB Prov:ADELSO ACE APRN 02/02/17 Hydrocodone/Acetaminophen (Lortab 7.5-325 mg Tablet) 1 Each Tablet, 1-2 TAB PO Q4H Y for PAIN, #60 Prov:ADELSO ACE APRN 02/02/17 Fentanyl (Fentanyl 75 mcg/hr) 1 Each Patch.td72, 1 PATCH TOP Q72H, #30 Prov:ADELSO ACE APRN 02/02/17 Reported Medications Sertraline (Sertraline) 100 Mg Tablet, 100 MG PO DAILY 01/30/17 Vitamin E (Dl,Tocopheryl Acet) (Vitamin E) 100 Unit Capsule, 1 CAP PO DAILY 01/29/17 Prednisolone Acetate (Omnipred) 10 Ml Drops.susp, 1 DROP LEFT EYE DAILY, 01/29/17 Calcium Polycarbophil (Fiber Lax) 625 Mg Tablet, 1 TAB PO DAILY 01/29/17 Dextran 70/Hypromellose (Artificial Tears Eye Drops) 15 Ml Drops, 2 DROP RIGHT EYE BID, 01/29/17 Vitamin B Complex (Vitamin B Complex) 1 Each Tablet, 1 TAB PO DAILY 01/29/17 Multivitamin (Multivitamins) 1 Each Tablet, 1 TAB PO DAILY 01/29/17 Levomefolate Calcium (l-Methylfolate) 15 Mg Tablet, 1 TAB PO DAILY, TAB 01/29/17 Glucosamine/D3/Boswellia Valeri (Osteo Bi-Flex Tablet) 1 Each Tablet, 1 TAB PO DAILY 01/29/17 Cholecalciferol (Vitamin D3) (Vitamin D3) 2,000 Unit Tablet, 1 TAB PO DAILY 01/29/17 Calcium Carbonate/Vitamin D3 (Calcium + Vitamin D Tablet) 1 Each Tablet, 1 TAB PO DAILY 01/29/17 Ascorbic Acid (Ascorbic Acid) 500 Mg Tablet, 1 TAB PO DAILY, TAB 01/29/17 Calcitonin,[place],Synthetic (Calcitonin-[place]) 3.7 Ml [place].pump, 1 [place] DAILY 01/29/17 Docusate Sodium (Docusate Sodium) 100 Mg Capsule, 200 MG PO HS Y for CONSTIPATION 10/21/16 Aspirin (Aspirin) 325 Mg Tablet, 325 MG PO DAILY 10/21/16 Bupropion HCl (Bupropion Xl) 150 Mg Tab.er.24h, 150 MG PO DAILY 10/21/16 Hydrochlorothiazide (Hydrochlorothiazide) 12.5 Mg Tablet, 12.5 MG PO DAILY 10/21/16 Temazepam (Temazepam) 15 Mg Capsule, 30 MG PO HS Y for SLEEPLESSNESS 10/21/16 Discontinued Reported Medications Citalopram Hydrobromide (Citalopram HBr) 40 Mg Tablet, 40 MG PO DAILY 10/21/16 Face to Face Encounter I met with patient on the day of dismissal and discussed follow up appointments , medications, and safety plan. Discharge Disposition Discharged home. STEVIE HUYNH MD Feb 05, 2017 11:54
== END 2017-02-03 12:40 | disposition home health service (06) | DRG 561 ==
PROVIDERS: ADMIT Family Medicine; ATTEND Family Medicine
PROC: F07Z9FZ Gait Training/Functional Ambulation Treatment using Assistive, Adaptive, Supportive or Protective Equipment (ICD-10-PCS; principal; 2017-01-29)
PROC: F07M6ZZ Therapeutic Exercise Treatment of Musculoskeletal System - Whole Body (ICD-10-PCS; 2017-01-29)
PROC: F08Z4ZZ Home Management Treatment (ICD-10-PCS; 2017-01-29)
DX: S32.011D Stable burst fracture of first lumbar vertebra, subsequent encounter for fracture with routine healing (principal); G89.29 Other chronic pain; I10 Essential (primary) hypertension; F32.9 Major depressive disorder, single episode, unspecified; F10.21 Alcohol dependence, in remission; M41.9 Scoliosis, unspecified; J45.909 Unspecified asthma, uncomplicated; H54.41 Blindness, right eye, normal vision left eye; Z79.82 Long term (current) use of aspirin; W19.XXXD Unspecified fall, subsequent encounter; M85.80 Other specified disorders of bone density and structure, unspecified site
CPT/HCPCS: 36415; 80048; 80053; 82306; 85025

== ENCOUNTER 2017-02-08 06:08 | Emergency (ER) | payer MEDICARE, OTHER ==
[~2017-02-08] VITALS: Ht 167.6 cm; Wt 46.2 kg
[~2017-02-08 06:08] MED LIST changes: +ASCO500T10 PO; +CALC-191 PO; +CALC3.8S NAS; -CALC625T32 PO; +CALC625T69 PO; +CHOL200014 PO; -CITA40TA6 PO; +CYCL-375 PO; +DEXT15DR5 RIGHT EYE; +FENT1PAT TOP; -FENT1PAT66 TD; +GLUC-251 PO; -HYDR-3989 PO; +HYDR-4010 PO; -HYDR-4078 PO; +LEVO15TA5 PO; +MULT1TAB69 PO; +POLY17PO18 PO; +PRED10DR15 LEFT EYE; +SERT100T12 PO; -SERT50TA12 PO; +VITA100C23 PO; +VITA1TAB21 PO
--- OUTSIDE RECORDS SUMMARY | 2017-02-08 06:12 | XMS REPORT | Continuity of Care Document ---
Author Author [facility] Organization [facility] Address Unknown Phone Unavailable Care Team Providers Care Supervisor Reclamation Name Role Phone Mona Penaloza Primary Care Physician [phone] Source Comments Some departments are not documenting in the electronic medical record. 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
--- OUTSIDE RECORDS SUMMARY | 2017-02-08 06:13 | XMS REPORT | Continuity of Care Document ---
Author Author [facility] Organization [facility] Address Unknown Phone Unavailable Allergies Medications Problems Procedures Results Encounters ACCT No. Visit Date/Time Discharge Status Pt. Type Provider Facility Loc./Unit Complaint [id number] 02/02/2014 13:24:00 02/02/2014 23 :59:59 CLS Outpatient
--- OUTSIDE RECORDS SUMMARY | 2017-02-08 06:13 | XMS REPORT | Continuity of Care Document ---
Author Author [facility] Organization [facility] Address Unknown Phone Unavailable Support Name Relationship Address Phone CHRISMILLIE DO Caregiver Unknown Unavailable [place] [address] Insurance Providers Guarantor Marya Sanders Address [address] [place] [address] Payer Medicare Policy Number [id number] Subscriber's Name Marya Sanders Relationship 18 Self Effective Date 09 Payer [employer] Medicare Supplement Policy Number [id number] Subscriber's Name Marya Sanders Relationship 18 Self Group Number [id number] Problems Active Problems Medical Problem Onset Date Status Allergic rhinitis Unknown Chronic Asthma Unknown Chronic Blindness of right eye Unknown Chronic Chronic back pain Unknown Chronic Chronic pain Unknown Degenerative disc disease Unknown Chronic Depression Unknown Chronic History of alcoholism Unknown Resolved History of rheumatic fever Unknown Resolved Hypertension Unknown Chronic Kyphoscoliosis and scoliosis Unknown Chronic Lumbar burst fracture Unknown Acute Osteopenia Unknown Chronic Past Problems Medical Problem Onset Date Compression fracture of L1 lumbar vertebra Unknown Lateral epicondylitis Unknown Narcotic abuse Unknown Right hand paresthesia Unknown Medications Current Home Medications Medication Dose Units Route Directions Days Qty Instructions Start Date Ascorbic Acid 500 Mg Tablet 1 Tab Oral Daily 01/29/17 Aspirin 325 Mg Tablet 325 Mg Oral Daily 10/21/16 Bupropion Hcl (Bupropion Xl) 150 Mg Tab.er.24h 150 Mg Oral Daily 10/21/16 Calcitonin,[place],Synthetic (Calcitonin-[place]) 3.7 Ml [place].pump 1 [place] Intranasal Daily 01/29/17 Calcium Carbonate/Vitamin D3 (Calcium + Vitamin D Tablet) 1 Each Tablet 1 Tab Oral Daily 01/29/17 Calcium Polycarbophil (Fiber Lax) 625 Mg Tablet 1 Tab Oral Daily 01/29/17 Cholecalciferol (Vitamin D3) (Vitamin D3) 2,000 Unit Tablet 1 Tab Oral Daily 01/29/17 Cyclobenzaprine Hcl 10 Mg Tablet 10 Mg Oral Three Times A Day as needed for Muscle Pain 30 Tablet 02/02/17 Dextran 70/Hypromellose (Artificial Tears Eye Drops) 15 Ml Drops 2 Drop Right Eye Only Twice A Day 01/29/17 Docusate Sodium 100 Mg Capsule 200 Mg Oral Bedtime as needed for Constipation 10/21/16 Fentanyl (Fentanyl 75 Mcg/Hr) 1 Each Patch.td72 1 Patch Topically Every 72 Hours 30 02/02/17 Glucosamine/D3/Boswellia Valeri (Osteo Bi-Flex Tablet) 1 Each Tablet 1 Tab Oral Daily 01/29/17 Hydrochlorothiazide 12.5 Mg Tablet 12.5 Mg Oral Daily 10/21/16 Hydrocodone/Acetaminophen (Lortab 7.5-325 Mg Tablet) 1 Each Tablet 1-2 Tab Oral Every 4 Hours as needed for Pain 60 02/02/17 Levomefolate Calcium (L-Methylfolate) 15 Mg Tablet 1 Tab Oral Daily 01/29/17 Multivitamin (Multivitamins) 1 Each Tablet 1 Tab Oral Daily 01/29 Polyethylene Glycol 3350 (Healthylax) 17 Gm Powd.pack 17 G Oral Daily 30 Days 02/02/17 Prednisolone Acetate (Omnipred) 10 Ml Drops.susp 1 Drop Left Eye Only Daily 01/29/17 Sertraline Hcl (Sertraline) 100 Mg Tablet 100 Mg Oral Daily 01/30 Temazepam 15 Mg Capsule 30 Mg Oral Bedtime as needed for Sleeplessness 10/21/16 Vitamin B Complex 1 Each Tablet 1 Tab Oral Daily 01/29/17 Vitamin E (Dl,Tocopheryl Acet) (Vitamin E) 100 Unit Capsule 1 Cap Oral Daily 01/29/17 Past Home Medications Medication Directions Ordered Status Citalopram Hydrobromide (Citalopram Hbr) 40 Mg Tablet, 40 Mg Oral Daily 10/21 Discontinued Fentanyl (Fentanyl 75 Mcg/Hr) 1 Each Patch.td72, 1 Patch Topically Every 72 Hours 01/30/17 Discontinued Hydrocodone/Acetaminophen (Lortab 7.5-325 Mg Tablet) 1 Each Tablet, 1-2 Tab Oral Every 4 Hours as needed for Pain 01/30/17 Discontinued Lisinopril 20 Mg Tablet, 20 Mg Oral Bedtime 07/14/11 Discontinued Social History Social History Problem Response Recorded Date/Time Onset Date Status Hx Substance Use No 01/27/2017 1:43am Not Applicable Not Applicable Hx Alcohol Use No 01/27/2017 1:43am Not Applicable Not Applicable Has the pt used tobacco in the last 12 months Yes 01/29/2017 3:49pm Not Applicable Not Applicable Hospital Discharge Instructions Current inpatient/outpatient. Discharge instructions are currently unavailable. Plan of Care Current inpatient/outpatient. The plan of care is currently unavailable Functional Status No functional status results. Allergies, Adverse Reactions, Alerts Allergen Type Severity Reaction Status Last Updated Ibuprofen Allergy Severe FACIAL SWELLING Active 01/27/17 Doxycycline Allergy Severe FACE AND THROAT SWELLS Active 01/27/17 Immunizations Query Response on File Recorded Date/Time Hx Influenza Vaccination No 01/29/17 3:49pm Hx Pneumococcal Vaccination No 01/29/17 3:49pm Hx Influenza Vaccination No 01/29/17 3:49pm Influenza Vaccine Hx NOT THIS SEASON 01/27/17 1:43am Tdap Vaccine Hx NOT CURRENT PER PT 11/13/16 9:20am Vital Signs Acute Vital Signs Vital Response Date/Time Temperature (Fahrenheit) 98.3 deg F (96.8 - 99.1) 02/03/2017 9:45am Temperature (Calculated Celsius) 36.30112 degrees C (36.0 - 37.3) 02/03/2017 9:45am Pulse Rate (adult) 68 bpm (60 - 100) 02/03/2017 9:45am Respiratory Rate 20 breaths/min (10 - 20) 02/03/2017 9:45am O2 Sat by Pulse Oximetry 96 % (90 - 100) 02/03/2017 9:45am Oxygen Delivery Method Room Air 02/03/2017 9:45am Blood Pressure 175/90 mm Hg 02/03/2017 10:51am Blood Pressure Source Manual/Auscultation 02/03/2017 10:51am Height (Feet) 5 feet 02/02/2017 10:46am Height (Inches) 8.00 inches 02/02/2017 10:46am Weight (Kilograms) 50.500 kg 01/29/2017 3:46pm Body Mass Index (BMI) 16.9 01/29/2017 3:46pm Results No known relevant diagnostic tests, laboratory data and/or discharge summary. Procedures Procedure Status Date Provider(s) Emergency dept visit Completed 11/13/16 Insert temp bladder cath Completed 01/27/[address] lumbar spine w/o dye Completed 01/27/17 Ct pelvis w/o dye Completed 01/27/17 Ther/proph/diag inj iv push Completed 01/27/17 Tx/pro/dx inj same drug coat ironer hand Completed 01/27/17 Emergency dept visit Completed 01/27/17 [id number]"INFUSION, NORMAL SALINE SOLUTION , 1000 CC" Completed 01/27/17 Encounters Encounter Location Arrival/Admit Date Discharge/Depart Date Attending Provider Registered Recurring [facility] 02/02/17 3:37pm MILLIE PEREZ DO Discharged Inpatient [facility] 01/29/17 3:23pm 02/03/17 12:40pm LUIS MIGUEL GOSS MD Departed Emergency Room [facility] 01/27/17 1:27am 01/27/17 3: 35am MARCHJAYNA DO Departed Emergency Room [facility] 11/13/16 9:16am 11/13/16 10: 00am JAYNA WALSH DO
[2017-02-08 06:15] VITALS: Ht 167.6 cm; Wt 46.2 kg
--- NOTE | 2017-02-08 06:20 | NUR ---
IN TO EXAMINE PATIENT
--- NOTE | 2017-02-08 07:10 | ERPDOC ---
Departure Disposition Decision Date: Feb 08, 2017 Disposition Decision Time: 08:10 Disposition: 02 TO [facility] Impression Impression Impression: Primary Impression: Lumbar burst fracture Encounter type: subsequent encounter Fracture healing: with delayed healing Qualified Codes: S32.001G - Stable burst fracture of unspecified lumbar vertebra, subsequent encounter for fracture with delayed healing Severity: Moderate Condition: Improved Seen By: Physician only Referrals: MILLIE PEREZ DO (Family) Problems/Meds/Labs Reviewed?: Yes Medications reviewed and manag: Yes Follow up care ordered?: Yes Mental Status: Alert, Oriented HPI - General Medical General Chief Complaint: Lower Extremity Pain Stated Complaint: RIGHT HIP PAIN Time Seen by Provider: 06:21 Source: patient Exam Limitations: no limitations HPI - General Medical Initial Comments 71-year-old female presents to the emergency department with a chief complaint of pain in her right hip. Patient notes that she was at home attempting to sleep at approximately 1 AM when she noted onset of pain in her right hip. Patient denies any trauma or injury. Patient states that her symptoms have been persistent in nature since onset. Patient describes the pain as moderate in nature. There is no radiation. Pain is sharp. Pain improves with rest and positioning. Patient denies any other complaints or associated symptoms. Patient notes that she forgot to take her blood pressure medication this morning. She is otherwise asymptomatic with elevated blood pressure. Patient was at home when her symptoms began. Symptoms have had a gradual progression in nature. She denies any other complaints or associated symptoms. Patient does note that she was hospitalized at [place] for an L1 fracture and then returned to the [facility] and discharged home last Sunday. No new trauma or injury. Allergies: Coded Allergies: doxycycline (Verified Allergy, Severe, FACE AND THROAT SWELLS, 02/08/17) ibuprofen (Verified Allergy, Severe, FACIAL SWELLING, 02/08/17) Past History Patient Surgical History Hysterectomy Colonoscopy Femoral bypass Right eye prosthesis Right heel/ankle fracture repair Past Medical History Metabolic: hypertension Cardiac: CAD GI: constipation Musculoskeletal: back pain, osteoarthritis Psychological: anxiety, depression Surgical History Joint: foot Family History Family History: Negative Vaccines Hx Influenza Vaccination: No Hx Pneumococcal Vaccination: No Social History Smoking Status: Never smoker Substance Use Type: does not use, opiates Alcohol Intake: none Marital Status: Review of Systems Constitutional Constitutional: DENIES: chills, fever Eyes General: DENIES: erythema, exudate Lids/Accessories: DENIES: erythema, swelling Vision: DENIES: acuity, blurring ENMT Ears: DENIES: drainage, erythema Hearing: DENIES: hearing loss Balance: DENIES: ataxia, falling to one side Sinuses: DENIES: congestion, pain Nose: DENIES: nosebleeds, pain Mouth/Throat: DENIES: painful swallowing, sore throat Teeth: DENIES: pain Jaw: DENIES: pain Cardiovascular Cardiac: DENIES: chest pain, dyspnea on exertion Rhythm/Rate: DENIES: irregular beat, palpitations Vascular: DENIES: pedal edema, unilateral swelling Pulmonary Respiratory: DENIES: cough, dyspnea, pleuritic chest pain, sputum GI Upper Abdomen: DENIES: nausea, pain, vomiting Lower Abdomen: DENIES: diarrhea, pain General: DENIES: dysuria, pain Musculoskeletal General: joint pain, tenderness Integumentary Skin: DENIES: itching, rash Neurological General: DENIES: headache, numbness, weakness Psychiatric Psychiatric: DENIES: depression, emotional instability, nervousness Endocrine Endocrine: DENIES: polydipsia, polyphagia Hematologic/Lymphatic Hematologic/Lymphatic: DENIES: frequent nosebleeds, lymphadenopathy Allergic/Immunological Allergic/Immunoligical: DENIES: frequent infections, hives Physical Exam General General Nourishment: well nourished, well developed, appears stated age, no acute distress General Body Habitus: well groomed Vitals and Pain First Documented Vital Signs Date Time Temp Pulse Resp B/P Pulse Ox O2 Delivery O2 Flow Rate FiO2 02/08/17 06:15 97.6 83 16 231/112 99 Room Air Weight: Kilograms: 46.200 Height (feet): 5 Height (inches): 6.00 Triage Pain Scale: RN VS reviewed by Provider: Yes Normal Exams: Head: Normocephalic w/o trauma Eyes: Pupils are PERRLA w/ EOMI, No scleral icterus, irritation, or foreign bodies noted ENMT: No facial trauma, nasal exudates, pharyngeal erythema, or exudates are noted Dental: No fractured, loose, or missing teeth noted Neck: Full range of motion, without adenopathy, JVD, bruits or thyromegaly Chest/Resp: Clear all jara, with good airflow, and symmetry bilaterally CV: Regular rate and rhythm, without murmur or gallop, Pulses 2+ all extremities, capillary refill, <2 seconds all ext., no pedal edema noted Abdomen: Bowel sounds positive, soft, non-tender, non-distended, no hepatosplenomegaly, masses or bruits noted Lymphatic: No lymphadenopathy, or lymphedema noted Musculoskeletal: or deformity noted, good range of motion, all extremities Integumentary: No rashes, hives, or bruising noted, hair and nails, without abnormality Neurologic: Patient is alert, and oriented, cranial nerves, motor/sensory/ cerebellar, exams w/o gross deficits, to observation Psychiatric: Patient exhibits, appropriate attention, emotion and affect Musculoskeletal (brief) Comments R Hip - Full range of motion. no erythema or edema. skin intact. Pulses intact. Sensation intact. Capillary refill less than 2. Gait is normal. Tender to palpation over the right lateral hip. No other tenderness in the right lower extremity. All other extremities are unremarkable. Back - Diffusely tender to palpation over Lumbar spine. No mid-line tenderness to cervical or thoracic spine. Neurologic (brief) Comments Alert and oriented x 4. CN 2-12 intact. Sensation intact. Strength normal. Reflexes 2/4 in all extremities. Absent Babinski bilaterally. Normal motor. Normal coordination. No focal neurologic deficit. Differential Diagnoses Considering: Other (Fracture/DVT) Progress Results/Orders Orders Procedure Category Date Status Time Ct Thoracic Spine W/O CT 02/08/17 Resulted Contrast 06:33 Ct Lumbar Spine W/O CT 02/08/17 Resulted Contrast 06:33 Pelvis W/2 View Rt Hip RAD 02/08/17 Resulted 06:33 Us Arterial Extremity US 02/08/17 Resulted Lower Rt 06:33 Us Venous Duplex, US 02/08/17 Resulted Lower Ext Rt 06:33 Cbc W/Auto LAB 02/08/17 Complete Diff-Reflex Manual Cmp - Comprehensive LAB 02/08/17 Complete Metabolic Troponin I W LAB 02/08/17 Complete Hemolysis Index EKG EKG 02/08/17 Taken Chest 1 View RAD 02/08/17 Resulted 06:33 Morphine Sulfate PHA 02/08/17 Complete (Morphine) 07:45 Ondansetron Inj PHA 02/08/17 Complete (Zofran) 07:45 Normal Saline (Ns) PHA 02/08/17 Complete 07:45 Morphine Sulfate PHA 02/08/17 Complete (Morphine) 08:30 Morphine Sulfate PHA 02/08/17 Complete (Morphine) 10:00 Hydrochlorothiazide PHA 02/08/17 Complete (Hydrodiuril) 10:15 Lab Results Laboratory Tests Test 02/08/17 07:31 White Blood Count 8.2T/MM3 Red Blood Count 4.19M/MM3 Hemoglobin 13.7GM/DL Hematocrit 40.2% Mean Corpuscular Volume 95.9UM3 Mean Corpuscular Hemoglobin 32.7UUG Mean Corpuscular Hemoglobin Concent 34.1GM/DL RDW Standard Deviation 39.8FL Platelet Count 317T/MM3 Mean Platelet Volume 8.5UM3 Immature Granulocyte % (Auto) 0.1% Neutrophils (%) (Auto) 68.3% Lymphocytes (%) (Auto) 20.6% Monocytes (%) (Auto) 6.0% Eosinophils (%) (Auto) 4.0% Basophils (%) (Auto) 1.0% Absolute Immature Granulocyte (auto 0.01T/MM3 Absolute Neutrophils (auto) 5.6T/MM3 Absolute Lymphocytes (auto) 1.7T/MM3 Absolute Monocytes (auto) 0.5T/MM3 Absolute Eosinophils (auto) 0.3T/MM3 Absolute Basophils (auto) 0.1T/MM3 Turbidity < 20 Sodium Level 141MEQ/L Potassium Level 3.4MEQ/L Chloride Level 102MEQ/L Carbon Dioxide Level 28MEQ/L Anion Gap 11MEQ/L Blood Urea Nitrogen 29.0MG/DL Creatinine 1.2MG/DL Glomerular Filtration Rate Calc 44 BUN/Creatinine Ratio 24RATIO Glucose Level 110MG/DL Calculated Osmolality 278MOSM/KG Calcium Level 10.0MG/DL Total Bilirubin 0.60MG/DL Icterus Index < 2 Aspartate Amino Transf (AST/SGOT) 30U/L Alanine Aminotransferase (ALT/SGPT) 33U/L Alkaline Phosphatase 101U/L Troponin I < 0.012ng/ml Total Protein 7.1G/DL Albumin 4.0G/DL Globulin 3.1G/DL Albumin/Globulin Ratio 1.3RATIO Chemistry Specimen Hemolysis < 15 Medications Current ED Medications Morphine Sulfate (Morphine) 2 mg O ONCE IV Last administered on 02/08/17t 07: 49; Start 02/08/17 at 07:45; Stop 02/08/17 at 07:46; Status DC Ondansetron HCl 4 mg 4 mg O ONCE IV Last administered on 02/08/17 07:47; Start 02/08/17 at 07:45; Stop 02/08/17 at 07:46; Status DC Sodium Chloride (NS) 500 ml @ 999 mls/hr Q31M ONCE IV Last administered on 07:46; Start 02/08/17 at 07:45; Stop 02/08/17 at 08:15; Status DC Morphine Sulfate (Morphine) 2 mg O ONCE IV Last administered on 02/08/17 08: 34; Start 02/08/17 at 08:30; Stop 02/08/17 at 08:31; Status DC Morphine Sulfate (Morphine) 2 mg O ONCE IV Last administered on 02/08/17 10: 10; Start 02/08/17 at 10:00; Stop 02/08/17 at 10:02; Status DC Hydrochlorothiazide (Hydrodiuril) 12.5 mg O ONCE PO ; Start 02/08/17 at 10:00; Stop 02/08/17 at 10:01; Status Cancel Hydrochlorothiazide (Hydrodiuril) 12.5 mg O ONCE PO Last administered on 10:09; Start 02/08/17 at 10:15; Stop 02/08/17 at 10:16; Status DC Progress Progress Labs/imaging were discussed in detail with the patient and family and questions are answered. Patient is given parental narcotic and antiemetic medications intravenously which improved her symptoms. Patient has not taken her antihypertensive medication prior to presentation to the emergency department today. Hydralazine 12.5 mg by mouth 1 was administered which is the patient's normal daily blood pressure medication. Patient is placed in a c-collar in the emergency department and spinal precautions are observed. Patient is discussed with Dr. Crews of neurosurgery who recommends placing the patient in a TLSO brace. Orthopedic equipment is not available at [facility]. Patient has had with Dr. Jackson and plan is performed to transfer the patient to [facility] where orthopedic services are available for the spine. Patient verbalizes agreement and understanding. Patient is in agreement with the current plan of management. Risk versus benefit of transfer discussed in detail with the patient and questions are answered. Patient is transferred to [facility] without incident. Accepting physician is Dr. Avila Botello. Patient is asymptomatic with elevated blood pressure. Patient is in agreement with the current plan of management. EKG EKG : Rate: 60-100 Rhythm: sinus QRS: normal Intervals: normal ST/T: normal Interpreted by: signing physician CT CT : CT: Other Interpretation: Abnormal (thoracic spine: Negative. Lumbar spine: Increased loss of body height from 50-65%. Otherwise no acute processes.) Ultrasound US : Ultrasound: Other (venous duplex: Negative. Arterial Doppler: Stenoses. Pulses still present.) CARLENE WILEY DO Feb 08, 2017 07:10
--- OUTSIDE RECORDS SUMMARY | 2017-02-08 07:21 | XMS REPORT | Continuity of Care Document ---
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
--- OUTSIDE RECORDS SUMMARY | 2017-02-08 07:23 | XMS REPORT | Continuity of Care Document ---
Author Author [facility] Organization [facility] Address Unknown Phone Unavailable Allergies Medications Problems Procedures Results Encounters ACCT No. Visit Date/Time Discharge Status Pt. Type Provider Facility Loc./Unit Complaint [id number] 02/02/2014 13:24:00 02/02/2014 23 :59:59 CLS Outpatient
--- NOTE | 2017-02-08 07:25 | NUR ---
RETURNED FROM CT AND [facility]
--- NOTE | 2017-02-08 07:35 | NUR ---
FENTANYL PATCHES REMOVED REMOVED TWO 75MG FENTANYL PATCHES FROM PATIENT'S LOWER BACK AND DISCARDED. JOEL MURILLO RN WITNESSED
[2017-02-08 07:37] LABS: BASOPHILS # (AUTO) 0.1 T/MM3 (0-0.2); EOSINOPHILS # (AUTO) 0.3 T/MM3 (0-0.5); HCT - HEMATOCRIT 40.2 % (36-46); HGB - HEMOGLOBIN 13.7 GM/DL (12-16); IMMATURE GRANULOCYTE # (AUTO) 0.01 T/MM3 (0.00-0.03); IMMATURE GRANULOCYTE % (AUTO) 0.1 % (0.0-0.5); LYMPHOCYTES # (AUTO) 1.7 T/MM3 (1-4.8); LYMPHOCYTES % (AUTO) 20.6 % (23-45); MEAN CORPUSCULAR HGB 32.7 UUG (26-34); MEAN CORPUSCULAR HGB CONC(MCHC 34.1 GM/DL (31-37); MEAN CORPUSCULAR VOLUME 95.9 UM3 (80-100); MEAN PLATELET VOLUME 8.5 UM3 (9.4-12.4); MONOCYTES # (AUTO) 0.5 T/MM3 (0-0.8); NEUTROPHILS #(AUTO)-ABSOLUTE 5.6 T/MM3 (1.8-7.7); NEUTROPHILS % (AUTO) 68.3 % (33-66); RED BLOOD COUNT 4.19 M/MM3 (4.00-5.20); WBC - WHITE BLOOD COUNT 8.2 T/MM3 (4.5-11.0)
[2017-02-08] MEDS ORDERED: ONDANSETRON 4mg/2ml INJECTION IV ONE (07:45)
[2017-02-08] MEDS ORDERED: NORMAL SALINE 500 ML IV ONE (07:45)
[2017-02-08] MEDS ORDERED: MORPHINE SULFATE 2 MG SYRINGE IV ONE ×3 (07:45→10:00)
--- NOTE | 2017-02-08 07:46 | NUR ---
MEDICATIONS ZOFRAN AND MORPHINE GIVEN PER ORDERS RATES PAIN 08/28
[2017-02-08 07:47] LABS: ALBUMIN/GLOBULIN RATIO 1.3 RATIO (1.1-2.2); ALKALINE PHOSPHATASE 101 U/L (38-126); ALT (SGPT) 33 U/L (9-52); ANION GAP 11 MEQ/L (5-15); AST (SGOT) 30 U/L (14-36); BUN/CREATININE RATIO 24 RATIO (6-26); CHLORIDE 102 MEQ/L (98-107); CO2 - CARBON DIOXIDE 28 MEQ/L (22-30); CREATININE 1.2 MG/DL (0.7-1.2); GLOMERULAR FILTRATION RATE 44; GLUCOSE 110 MG/DL (65-110); POTASSIUM 3.4 MEQ/L (3.6-5); SODIUM 141 MEQ/L (134-144); TOTAL PROTEIN 7.1 G/DL (6.3-8.2)
--- NOTE | 2017-02-08 07:56 | DI ---
Indication: ITS.REASON: pain PROCEDURE: US ARTERIAL EXTREMITY LOWER RT: Technique: Grayscale color and duplex Doppler imaging was performed of the arterial tree of the right leg. Findings: RIGHT LEG (cm/sec) Common Femoral 94 Superficial Femoral Proximal 73 Mid 42 Distal 65 Popliteal 112 OLAYINKA-prox 102 SOLARIS ADMINISTRATOR-prox 103 OLAYINKA-dist 61 SOLARIS ADMINISTRATOR-dist 251 Focal velocity elevation in the distal posterior tibial artery. Diminished waveforms in the distal anterior tibial artery and dorsalis pedis artery. Patient's femoral popliteal bypass graft appears patent. 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 .
--- NOTE | 2017-02-08 07:57 | DI ---
Indication: ITS.REASON: pain PROCEDURE: US VENOUS DUPLEX, LOWER EXT RT: Encounter: Initial Comparison: None Technique: Color Doppler duplex and grayscale sonographic imaging of the right lower extremity was performed. Findings: There is no evidence for acute deep venous thrombosis in the right thigh. Specifically, serial graded compression was performed from the inguinal ligament to the popliteal bifurcation, on the right thigh, demonstrating appropriate compressibility of the deep venous system. In addition, color and pulsed Doppler demonstrate appropriate spontaneous flow, variation with respiration, and augmentation with calf compression. At the ankle, normal flow is identified in the posterior tibial veins; these vessels are also normal in caliber. Impression: No evidence of acute DVT in the right lower limb. .
--- NOTE | 2017-02-08 08:01 | DI ---
Indication: ITS.REASON: Recent fall with Worsening back pain PROCEDURE: CT THORACIC SPINE W/O CONTRAST: Encounter: Initial Comparison: None: Technique: Axial noncontrast CT imaging of the thoracic spine was performed with coronal and sagittal two-dimensional reformats. Automated Exposure Control and Iterative Reconstruction dose reducing techniques were utilized. FINDINGS: Alignment of the thoracic spine is normal for the patient's age. There are minimal, age appropriate, degenerative changes within the intervertebral disk and facet joints in the thoracic spine. No fractures are evident in the thoracic spine. The vertebral bodies and facet joints are normally aligned. There is no evidence of significant spinal stenosis, foraminal compromise, epidural hematoma, or significant disk herniation. The paraspinal soft tissues and central spinal canal appear unremarkable. IMPRESSION: No acute traumatic abnormality of the thoracic spine. There is a preliminary report by virtual radiologic. .
--- NOTE | 2017-02-08 08:05 | DI ---
Indication: ITS.REASON: Worsening back pain history recent fall, known L1 fracture PROCEDURE: CT LUMBAR SPINE W/O CONTRAST: Encounter: Initial Comparison: January 27, 2017 Technique: Axial noncontrast CT imaging of the lumbar spine was performed with coronal and sagittal two-dimensional reformats. Automated Exposure Control and Iterative Reconstruction dose reducing techniques were utilized. FINDINGS: Interval worsening compression of the L1 burst fracture which now shows 65% height loss compared to 50% previously. There is slight increase in retropulsion causing severe central canal stenosis. Degenerative changes and scoliosis are again noted. No additional new fractures appreciated. Impression: Worsening in the L1 burst fracture with 65% height loss and increasing retropulsion with severe central canal stenosis. This appears to be an unstable fracture and spinal surgical consultation is recommended. There is a preliminary report by virtual radiologic. .
--- NOTE | 2017-02-08 08:19 | DI ---
Indication: ITS.REASON: pain PROCEDURE: PELVIS W/2 VIEW RT HIP: Encounter: Initial Comparison: CT pelvis dated January 27, 2017 Findings: No acute fracture identified bony demineralization. Mild to moderate arthritis in both hips. Impression: No acute fracture. .
--- NOTE | 2017-02-08 08:23 | DI ---
Indication: ITS.REASON: elevated bp PROCEDURE: CHEST 1 VIEW: Encounter: Initial Comparison: Chest CT dated May 30, 2010 Findings: The lungs are stable in appearance without new focal airspace consolidation. There is no pleural effusion or pneumothorax. The heart size, pulmonary vascularity and mediastinal contours are unchanged. Old right lower rib and left clavicular deformities. IMPRESSION: Stable appearance of the chest without acute cardiopulmonary disease. .
--- NOTE | 2017-02-08 08:34 | NUR ---
MEDICATIONS MORPHINE IV GIVEN PER ORDERS CONTINUES TO RATE PAIN 10/10
--- NOTE | 2017-02-08 08:50 | NUR ---
BEDPAN PLACED PATIENT ON BEDPAN AT THIS TIME
[2017-02-08] MEDS ORDERED: HYDROCHLOROTHIAZIDE 50 MG TABLET PO ONE (10:00)
--- NOTE | 2017-02-08 10:00 | NUR ---
C-COLLAR PLACED ON PATIENT FOR TRANSFER PER ORDERS BY
[2017-02-08] MEDS ORDERED: HYDROCHLOROTHIAZIDE 12.5 MG CAPSULE PO ONE (10:15)
--- NOTE | 2017-02-08 10:28 | NUR ---
REPORT CALLED AND GIVEN TO ER CHARGE NURSE AT [facility]
[2017-02-08 10:45] VITALS: BP 198/100; PULSE 76; RESP 17; TEMP 97.6; O2SAT 98
--- NOTE | 2017-02-08 10:45 | NUR ---
TRANSFER EMS HERE TO TRANSFER PATIENT. REPORT GIVEN AND TRANSFER PAPERWORK SENT. PERSONAL BELONGINGS OF CLOTHING AND PURSE, CELL PHONE SENT WITH PATIENT
== END 2017-02-08 10:45 | disposition short-term general hospital (02) ==
LOC: ED 06:08
DX: S32.011G Stable burst fracture of first lumbar vertebra, subsequent encounter for fracture with delayed healing (principal); X58.XXXD Exposure to other specified factors, subsequent encounter; I10 Essential (primary) hypertension
CPT/HCPCS: 71010; 72128; 72131; 73502; 80053; 84484; 85025; 93005; 93926; 93971; 96374; 96375; 96376; 99285; A9270; J2405; L0150

== ENCOUNTER 2017-07-25 15:15 | Inpatient (IN) ==
--- OUTSIDE RECORDS SUMMARY | 2017-07-25 15:30 | External Medical Summary | Clinical Summary ---
:1945 Author Organization [facility] Address [address] [place] [address] Phone Care Team Providers Name Role Phone Unavailable Primary Care Provider Unavailable Source Comments Some departments are not documenting in the electronic medical record. If you do not see the information that you expected, contact Release of Information in the Health Information Management department at [phone] for further assistance in locating additional records.[facility] Allergies Active Allergy Reactions Severity Noted Date Comments Doxycycline ITCHING 01/10/2010 "Itching in throat" Egg White EDEMA 06/20/2013 Raw eggs- Does not take flu vaccine or pneumonia vaccine Per pt 1024: tolerates cooked egg in product and hard boiled egg but not scrambled egg, fluid eggs, or omelets. Ibuprofen ITCHING 01/10/2010 "Itching in throat" Current Medications Prescription Sig. Disp. Refills Start Date End Date Status temazepam (RESTORIL) 15 Take 15 mg by Active mg capsule mouth at bedtime daily. hydrochlorothiazide Take 12.5 mg by Active (HYDRODIURIL) 12.5 mg Tab mouth daily. tablet fish oil /omega-3 fatty Take 1 Cap by Active acids (SEA-OMEGA) mouth daily. 340/1000 mg capsule citalopram (CELEXA) 40 mg Take 40 mg by Active tablet mouth daily. vitamins, multiple tablet Take 1 Tab by Active mouth daily. ascorbic acid (VITAMIN-C) Take 500 mg by Active 500 mg tablet mouth daily. cholecalciferol (Vitamin Take 1,000 Units Active D3) (VITAMIN D-3) 1,000 by mouth daily. units tablet docusate (COLACE) 100 mg Take 100 mg by Active capsule mouth daily as needed. For constipation aspirin 325 mg tablet Take 1 Tab by 30 Tab 1 09/24/2013 Active mouth daily. HYDROcodone/acetaminophen TAKE ONE TO TWO 50 Tab 0 02/03/2014 Active (NORCO; VICODIN) 5-325 mg TABLETS BY MOUTH tablet EVERY 6 TO 8 HOURS NEEDED FOR PAIN minocycline (MINOCIN) 100 TAKE ONE CAPSULE 60 Cap 11 06/29/2014 Active mg capsule BY MOUTH TWICE A DAY ciprofloxacin HCl (CIPRO) Take 1 Tab by 30 Tab 0 03/15/2015 Active 250 mg tablet mouth daily. 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 Family History Medical History Relation Name Comments Stroke Other Relation Name Status Comments Other Social History Tobacco Use Types Packs/Day Years Used Date Former Smoker Cigarettes 1 58 Quit: 05/19/2013 Smokeless Tobacco: Never Used Tobacco Cessation: Counseling Given: Yes Comments: Chews nicorette gum Alcohol Use Drinks/Week oz/Week Comments No recovering alcoholic-7 yrs sober Sex Assigned at Date Recorded Not on file Last Filed Vital Signs Vital Sign Reading Time Taken Blood Pressure 146/86 09/10/2014 12:58 PM CDT Pulse 72 09/10/2014 12:58 PM CDT Temperature 36.3 C (97.3 F) 09/10/2014 12:58 PM CDT Respiratory Rate 16 09/10/2014 12:58 PM CDT Oxygen Saturation 95% 09/24/2013 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
--- NOTE | 2017-07-25 16:59 | History & Physical Report ---
<Maris Wong V - Last Filed: 07/25/17 16:45> History of Present Illness Date: 07/25/17 Chief complaint: Ancephalopathy, Acute kidney injury HPI: Marya is a 72-year-old female who has been under the primary care of Dr. Rika Segovia. Patient was seen in the emergency room last week on 07/20/17 with a complaint of encephalopathy. She was found to have a urinary tract infection. At that time her creatinine was noted to be elevated at 2.2. Her baseline from January 2017 was 1.2. She was placed on Bactrim antibiotic and instructed to follow with primary care. She was seen yesterday 07/24/17 at the primary care setting by Dr. Segovia. She was noted to have some mental status change and she reported to physician she's noticed some "sleepwalking". She reports last week she awoke to found herself in different rooms of the house. Laboratory studies were performed yesterday by Dr. Segovia. Urinalysis did reveal 1+ leukocyte esterase, 5-10 WBCs with presence of calcium oxalate and mucus. Her WBC count was found to be 4.5, hemoglobin 11.8, platelet count 223. Sodium was 138, potassium 4.3, BUN 36, creatinine 2.6. TSH 1.51. Patient was sent home, however , returns today for office follow-up. Today, renal function was rechecked at the office, creatinine found to be even higher at 3.1. Given this continued change accompanied with her encephalopathy hospitalist services were contacted and accepted patient for direct admission for further evaluation and treatment. Patient does meet criteria or inpatient, Given acute encephalopathy, accompanied with creatinine elevation doubling from baseline. It is expected that her stay will be greater than 2 overnights Marya is seen on arrival to [facility]. She is alert and pleasant during conversation. She does verbalize that she has felt more confused over the last several weeks. She notes that last Sunday and she awoke finding herself in different rooms. Her friend notes that at that time she was found to have her car door open, as well as a garage door open and it is unknown if she drove during this time. Patient reports she is also had multiple falls, however, she is unable unable to give any specific details. She is noted to have large area of ecchymosis to the right side and flank. When inquired regarding this. Patient states "I must have fallen". Patient is also found to have 2 fentanyl patches 100 micrograms each on her low back on admission. When matched with clinic med reconciliation, Patient is supposed to have only 100 micrograms on at a time. Patient states that over the last couple of weeks. She reports felt that she "wanted to get all she could" out of her Fentanyl patches so she has been rotating them every 3rd day, however, always leaving [address]. Patient states she has decreased her Williamson 10 mg tabs to 2 tabs at night. 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 We did discuss advanced directives and she does state that she is a do not resuscitate. Review of Systems ROS unobtainable: due to mental status Comprehensive ROS: completed and no additional positive findings except those as stated - Constitutional Constitutional: Present: anorexia (chronic) - Musculoskeletal Musculoskeletal: Present: back pain (chronic) - Neurological Neurological: Present: confusion, frequent falls, memory loss [facility] Patient Stated Medical History Hypertension Asthma Chronic pain- fentanyl patch- 100mcg, Williamson 10 mg tabs History of lumbar burst fracture with degenerative disc disease Scoliosis Depression Anxiety Right eye blindness-prosthetic eye Insomnia History of alcoholism History of rheumatic fever Surgical History: Mammogram-2015. Total abdominal hysterectomy with BSO- 1988. Aorto- Femoral Bypass- 2007 Family History: Family History Father Diabetes Hypertension Hyperlipidemia Mother Goiter Brother Hyperlipidemia Hypertension Obesity Paternal Grandfather Heart attack Maternal Grandfather Cancer Maternal Grandmother Diabetes Cancer - Social History Smoking status: Former smoker Substance use type: former substance user Alcohol intake frequency: former alcohol drinker Housing: house Current residence: Apartment/Private Home Social history: PCP Dr. Rika Segovia Medications Home Medications Medication Instructions Recorded Confirmed Type Aspirin 325 mg PO DAILY #0 10/21/16 07/25/17 History Calcium Carbonate/Vitamin D3 1 tab PO DAILY #0 01/29/17 07/25/17 History [Calcium 600-Vit D3 200 Tablet] BuPROPion XL [Wellbutrin Xl] 150 mg PO DAILY 07/20/17 07/25/17 History Calcium Polycarbophil [Fiber] 1 tab PO DAILY 07/20/17 07/25/17 History Docusate Sodium [Stool Softener] 200 mg PO HS PRN 07/20/17 07/25/17 History FentaNYL PATCH [Duragesic Patch] 100 mcg TD Q72H 07/20/17 07/25/17 History Hydrocodone/APAP 7.5/325 [Williamson 2 tab PO Q4H PRN 07/20/17 07/25/17 History 7.5/325] Lisinopril [Prinivil] 5 mg PO DAILY 07/20/17 07/25/17 History Sertraline [Zoloft] 100 mg PO DAILY 07/20/17 07/25/17 History Tolterodine Tartrate [Tolterodine 4 mg PO DAILY 07/20/17 07/25/17 History Tartrate ER] Ascorbate Calcium [Vitamin C] 500 mg PO DAILY 07/25/17 07/25/17 History Calcitonin Nasal Osgood 1 spray NS DAILY 07/25/17 07/25/17 History Cholecalciferol (Vitamin D3) 1 tab PO DAILY 07/25/17 07/25/17 History [Vitamin D3] Cyclobenzaprine [Flexeril] 1 tab PO TID PRN 07/25/17 07/25/17 History Denosumab [Prolia] 60 mg SQ [id number] 07/25/17 07/25/17 History Hydrocodone/Acetaminophen 1 tab PO Q6H PRN 07/25/17 07/25/17 History [Hydrocodon-Acetaminophn 10-325] Multivitamin [One Daily] 1 tab PO DAILY 07/25/17 07/25/17 History Temazepam [Restoril] 30 mg PO HS PRN 07/25/17 07/25/17 History Vitamin E 100 unit PO DAILY 07/25/17 07/25/17 History Allergies Allergy/AdvReac Type Severity Reaction Status Date / Time doxycycline Allergy Severe FACE AND Verified 07/20/17 17:11 THROAT SWELLS Exam Vital Signs: Temperature 96.5 F L 07/25/17 15:43 Pulse Rate 55 L 07/25/17 15:43 Respiratory Rate 16 07/25/17 15:43 Blood Pressure 117/60 07/25/17 15:43 Pulse Oximetry 96 07/25/17 15:43 Height/Weight/BMI: Height 1.7 m Weight 46.4 kg Body Mass Index 16.0 - Constitutional Present: no acute distress, well nourished, well developed - Routine HEENT Exam ENT: Present: mucous membranes moist, dentition normal Comments: Right eye blindness- prosthesis - Routine Neck Exam Present: full ROM - Routine Respiratory Exam Present: CTA bilaterally. Absent: wheezes - Routine Cardiovascular Exam Present: RRR, S1, S2. Absent: murmur - Routine Abdominal Exam Present: soft, normoactive bowel sounds, non distended. Absent: tenderness - Routine Extremities Exam Present: full ROM, normal capillary refill - Routine Back/Spine/Pelvis Exam Back/Spine: Present: full ROM Back image: 1 - Ecchymosis - Routine Skin Exam Present: dry, warm, ecchymosis (right flank, side) - Routine Neurological Exam Present: alert, CN II-XII intact, altered mental status, moving all extremities , vision grossly intact, hearing grossly intact - Routine Psychiatric Exam Present: cooperative Comments: Patient recognizes that her mental status has changed Assessment and Plan (1) Acute encephalopathy Current visit: Yes Status: Acute (2) Acute kidney injury Current visit: Yes Status: Acute Resuscitation Status: Do Not Resuscitate Assessment and Plan: Impression Acute encephalopathy. Acute kidney injury-baseline creatinine 1.1, creatinine on admission 3.1 Recent urinary tract infection Frequent falls Right flank ecchymosis Chronic back pain Hypertension Anxiety Insomnia Osteoporosis with osteopenia Plan Will admit patient as an inpatient under the care of Dr. Richardson for acute encephalopathy with acute kidney injury. She does meet inpatient criteria. Given her significant rise in creatinine has her baseline is 1.1. Creatinine today. 3.1 Will obtain the following laboratory studies on admission- CBC, CMP Recheck urinalysis to evaluate for acute infectious process. In light of encephalopathy, accompanied with frequent falls an unknown injury. Will obtain a CT scan of the head to rule out intracranial abnormalities or hemorrhaging. Even acute kidney injury and rise in creatinine as well as extensive ecchymosis to the right flank and right side. Will obtain a renal ultrasound to rule out renal trauma. Fentanyl patch 100mcg 2 removed from low back on admission. Will need to monitor for acute opiate withdrawal as patient chronically uses both that now and Williamson for chronic pain. Place patient on telemetry to her for dysrhythmias. Normal saline at 100 ML per hour for gentle hydration. Will need to review home medications once they're reconciled in the computer. It does appear that patient is on lisinopril for chronic hypertension. This will need to be held given her acute kidney injury. Patient does request to be a do not resuscitate and this order is written Will discuss further orders and plan of care with attending, Dr. Richardson. At time of discharge her medical care is to return to her primary care provider , Dr. Rika Segovia Hospital Course Summary Disclaimer: The visit summary below is not to be considered part of the above Progress Note. Hospital Course: 07/25/17- initial admission Impression Acute encephalopathy. Acute kidney injury-baseline creatinine 1.1, creatinine on admission 3.1 Recent urinary tract infection Frequent falls Right flank ecchymosis Chronic back pain Hypertension Anxiety Insomnia Osteoporosis with osteopenia Plan Will admit patient as an inpatient under the care of Dr. Richardson for acute encephalopathy with acute kidney injury. She does meet inpatient criteria. Given her significant rise in creatinine has her baseline is 1.1. Creatinine today. 3.1 Will obtain the following laboratory studies on admission- CBC, CMP Recheck urinalysis to evaluate for acute infectious process. In light of encephalopathy, accompanied with frequent falls an unknown injury. Will obtain a CT scan of the head to rule out intracranial abnormalities or hemorrhaging. Even acute kidney injury and rise in creatinine as well as extensive ecchymosis to the right flank and right side. Will obtain a renal ultrasound to rule out renal trauma. Fentanyl patch 100mcg 2 removed from low back on admission. Will need to monitor for acute opiate withdrawal as patient chronically uses both that now and Williamson for chronic pain. Place patient on telemetry to her for dysrhythmias. Normal saline at 100 ML per hour for gentle hydration. Will need to review home medications once they're reconciled in the computer. It does appear that patient is on lisinopril for chronic hypertension. This will need to be held given her acute kidney injury. Patient does request to be a do not resuscitate and this order is written Will discuss further orders and plan of care with attending, Dr. Richardson. At time of discharge her medical care is to return to her primary care provider , Dr. Rika Segovia <Margarita Richardson - Last Filed: 07/25/17 17:57> History of Present Illness Date: 07/25/17 [facility] Patient Stated Medical History Syncope Yes Hypertension Yes Asthma Yes Pneumonia Yes MRSA Yes Depression Yes Post Menopausal Yes Clinic Medical History (Last Reviewed 06/06/17 @ 14:08 by Stevie Gillis MD) Spinal stenosis of lumbar region (Chronic Medical) Compression fracture of first lumbar vertebra (Acute Medical) Osteoporosis (Chronic Medical) Gout (Chronic Medical) Hyperlipidemia (Chronic Medical) Hypertension (Chronic Medical) Hypothyroidism (Chronic Medical) Kidney disease (Chronic Medical) Obesity (Chronic Medical) Rhinitis (Chronic Medical) Family History: Family History (Last Reviewed 06/06/17 @ 14:08 by Stevie Gillis MD) Father Diabetes Hypertension Hyperlipidemia Mother Goiter Brother Hyperlipidemia Hypertension Obesity Paternal Grandfather Heart attack Maternal Grandfather Cancer Maternal Grandmother Diabetes Cancer Exam Vital Signs: Temperature 96.5 F L 07/25/17 15:43 Pulse Rate 55 L 07/25/17 15:43 Respiratory Rate 16 07/25/17 15:43 Blood Pressure 117/60 07/25/17 15:43 Pulse Oximetry 96 07/25/17 15:43 Height/Weight/BMI: Height 5 ft 7 in Weight 102 lb 4.712 oz Body Mass Index 16.0 Assessment and Plan (1) Acute encephalopathy Current visit: Yes Status: Acute (2) Acute kidney injury Current visit: Yes Status: Acute Resuscitation Status: Full Code Assessment and Plan: I have independently evaluated and examined this patient. I reviewed the chart, the patient's history, and the ELECTRIC POWER LINE REPAIRER/PA's documented findings as above. We discussed and formulated the assessment and plan as above with additions as below. The patient was seen in her room at 1730. She is a somewhat vague and poor historian although very pleasant. Agree with history as above. Past medical history includes: The patient lost her right eye when she was laying on her side and rolled over and pierced her eye with a toothpick in about 2002 The patient has been sober since 2010 She fell and injured her ankle (L?) Years ago which required extensive surgeries , she required skin grafting with graft sites leaving scars on her left forearm. She also reports she had a staph infection around that time. Immunizations: She does not get a flu vaccine yearly She has no recollection of her last T data and is willing to get one today She does not remember if she's had a pneumococcal vaccine In general, the patient is alert and oriented 3, cooperative with exam, and in no respiratory distress. HEENT: Head is atraumatic, normocephalic, no conjunctival petechiae, no oral thrush, mucous membranes are moist and pink. Right eye prosthesis in place Lungs: Clear to auscultation without wheezes, crackles or rhonchi CV: Regular rate and rhythm without murmur Abdomen: Soft, nontender, bowel sounds are present, there is no guarding no rebound. Extremities: No clubbing, no cyanosis, no edema. Skin: Warm and dry no sign of rash Neuro: Patient is alert In discussing the patient's CODE STATUS she initially said she wanted to be a DO NOT RESUSCITATE, however she then requested that we try "a little". At this time will change her to full CODE STATUS until she is able to participate more coherently in the discussion. It is unclear who is her DURABLE POWER OF WHEEL ADJUSTER at this time. We'll discuss immunizations when the patient is more coherent. Hospital Course Summary Disclaimer: The visit summary below is not to be considered part of the above Progress Note.
[2017-07-25] MEDS ORDERED: TETANUS, DIPHTHERIA, a PERTUSSIS (Tdap) 0.5ml INJECTION IM ONE (17:48)
[2017-07-25] MEDS: NS 1,000 ML IV SCH (18:06)
[2017-07-26] MEDS: NS 1,000 ML IV SCH ×2 (03:52→14:00)
[2017-07-26] MEDS: HYDROCODONE/APAP 7.5 MG/325 MG TABLET PO PRN ×2 (06:19→14:04)
--- NOTE | 2017-07-26 08:22 | CT Scan Report ---
Indication: fall, encephalopathy, recent trauma PROCEDURE: CT head/brain wo con: Encounter: Initial Comparison: July 20, 2017 Technique: Axial CT images through the head were performed without contrast. Iterative Reconstruction dose reducing technique was utilized. FINDINGS: The ventricles are stable. Chronic appearing lacunar infarct in the left caudate head. There are scattered areas of low attenuation in the white matter which most likely represent changes from chronic microvascular ischemia. The brainstem, cerebellum, and cerebral hemispheres otherwise have a normal morphology and CT attenuation. There is no evidence of midline displacement. No hemorrhage, signs of acute territorial stroke, mass effect, mass lesions, or edema is evident. The visualized portions of the skull base, midface, and calvarium demonstrate no abnormality. The paranasal sinuses are well aerated and free of significant disease. The tympanic and mastoid cavities appear normal. IMPRESSION: No acute intracranial abnormality or hemorrhage. Stable head CT. There is a preliminary report by [employer]. .
--- NOTE | 2017-07-26 09:58 | Ultrasound Report ---
Indication: ALLI with elevated creatinine, recent trauma with bruising PROCEDURE: US renal BI: Encounter: Initial Comparison: None Technique: Grayscale and color Doppler sonographic imaging of both kidneys was performed. FINDINGS: Right kidney is diminutive with cortical thinning. Left kidney appears normally sized with normal cortical thickness. No evidence for collecting system dilatation, contour deforming mass, nephrolithiasis, or abnormal perinephric fluid collection. The right kidney measures 6.8 cm in length, and the left kidney measures 9.6 cm in length. 1 cm cyst in the inferior aspect of the left kidney. IMPRESSION: No hydronephrosis. Diminutive right kidney. There is a preliminary report by [facility]. .
[2017-07-26] MEDS ORDERED: DOCUSATE SODIUM 100 MG CAPSULE PO PRN (14:07)
[2017-07-26] MEDS ORDERED: ONDANSETRON 4 MG/2 ML INJECTION IVP PRN (14:16)
--- NOTE | 2017-07-26 14:24 | Progress Note ---
<Carlota Schneider - Last Filed: 07/26/17 15:03> Subjective: Aziza was awake, resting in bed. She complains of severe back pain. She states that she's been on [place] for a long time, but it hasn't really been helping her. Baseline pain level is 2-3/10. Two friends are at bedside, and they report that she's lost a lot of weight since starting the Fentanyl patch. Aziza reports that she's been nauseated and as soon as she tries a bite of food, she doesn't want anymore. She occasionally has abdominal cramping but denies constipation. No reflux or heartburn. She reports that mentally she feels "hazy " and her friends note that she's still not quite back to normal. She also feels weak and fatigued, and has hardly been out of bed. She actually has felt weak and tired for quite some time. Objective Vital signs: Temperature 95.5 F L 07/26/17 07:00 Pulse Rate 61 07/26/17 08:13 Respiratory Rate 16 07/26/17 07:00 Blood Pressure 123/75 07/26/17 07:00 Pulse Oximetry 100 07/26/17 07:00 Height/Weight/BMI: Height 1.7 m Weight 47.5 kg Body Mass Index 16.0 - Constitutional Present: no acute distress, thin - Routine HEENT Exam ENT: Present: oropharynx clear Comments: blind right eye - Routine Respiratory Exam Present: CTA bilaterally - Routine Cardiovascular Exam Present: RRR, S1, S2, murmur (2/6) - Routine Abdominal Exam Present: soft, normoactive bowel sounds, non distended, non tender - Routine Extremities Exam Present: no edema, pulses intact - Routine Back/Spine/Pelvis Exam Back/Spine: Present: vertebral tenderness (lumbar) - Routine Musculoskeletal Exam Musculoskeletal: Present: moving extremities well - Routine Skin Exam Present: intact, dry, warm, ecchymosis (right flank/chest, right arm) - Routine Neurological Exam Present: alert, oriented X3, CN II-XII intact ((with exception of right eye)), normal speech - Routine Psychiatric Exam Present: normal affect, normal thought process, cooperative Results - Labs CBC & Chem 7: 07/26/17 09:04 07/26/17 09:04 Assessment and Plan (1) Acute encephalopathy Current visit: Yes Status: Acute (2) Acute kidney injury Current visit: Yes Status: Acute DVT Prophylaxis: SCD's Resuscitation Status: Full Code Assessment and Plan: ASSESSMENT Acute encephalopathy. Acute kidney injury-baseline creatinine 1.1, creatinine on admission 3.1 Recent urinary tract infection Frequent falls Right flank ecchymosis Chronic back pain - lumbar burst fracture Hypertension Anxiety Insomnia Osteoporosis with osteopenia History of alcoholism - sober since 2005 Blind right eye PLAN Renal function continues to improve - creatinine down to 1.8. Continue IVF. C/o nausea - add Zofran PRN. Could be r/t narcotics. Will stop [place] (pt reports not helpful) and try Percocet. We discussed importance of not using 2 Fentanyl patches at a time (she stated that when it was time to apply a new Fentanyl patch the last time, she decided to leave the last one on, hoping it would help with her pain). She has had 1 visit with a pain mgt specialist and has another one coming up. Resume Flexeril PRN. Hold off on restarting Fentanyl patch for now. Discussed code status - she would want an attempt at resuscitation, so will leave as full code. She reports that she has a living will and her sons know that she would not want to be kept alive on a ventilator. Weight loss and anorexia, nausea, fatigue - [facility] chart reviewed - no recent TSH or iron or B12 studies - will assess now. Urine culture from 07/24/17 was negative. Check prealbumin - may need dietary consult. Home medications reviewed with Aziza; not all were resumed. Lisinopril still on hold. Discharge planning: will consult PT/OT to see if she will be safe to return home alone. She has a son in [place] who offered to come down and help if needed. If she continues to improve, possibly could discharge in the next 24-48 hours. - Time spent with patient 25 - 35 minutes Sepsis Assessment - Evaluation Sepsis screening result: No Definite Risk Hospital Course Summary Disclaimer: The visit summary below is not to be considered part of the above Progress Note. Hospital Course: 07/25/17- initial admission Impression Acute encephalopathy. Acute kidney injury-baseline creatinine 1.1, creatinine on admission 3.1 Recent urinary tract infection Frequent falls Right flank ecchymosis Chronic back pain - lumbar burst fracture Hypertension Anxiety Insomnia Osteoporosis with osteopenia History of alcoholism - sober since 2005 Blind right eye Plan Will admit patient as an inpatient under the care of Dr. Richardson for acute encephalopathy with acute kidney injury. She does meet inpatient criteria. Given her significant rise in creatinine has her baseline is 1.1. Creatinine today. 3.1 Will obtain the following laboratory studies on admission- CBC, CMP Recheck urinalysis to evaluate for acute infectious process. In light of encephalopathy, accompanied with frequent falls an unknown injury. Will obtain a CT scan of the head to rule out intracranial abnormalities or hemorrhaging. Even acute kidney injury and rise in creatinine as well as extensive ecchymosis to the right flank and right side. Will obtain a renal ultrasound to rule out renal trauma. Fentanyl patch 100mcg 2 removed from low back on admission. Will need to monitor for acute opiate withdrawal as patient chronically uses both that now and [place] for chronic pain. Place patient on telemetry to her for dysrhythmias. Normal saline at 100 ML per hour for gentle hydration. Will need to review home medications once they're reconciled in the computer. It does appear that patient is on lisinopril for chronic hypertension. This will need to be held given her acute kidney injury. Patient does request to be a do not resuscitate and this order is written Will discuss further orders and plan of care with attending, Dr. Richardson. At time of discharge her medical care is to return to her primary care provider , Dr. Rika Segovia 07/26/17 Renal function continues to improve - creatinine down to 1.8. Continue IVF. C/o nausea - add Zofran PRN. Could be r/t narcotics. Will stop [place] (pt reports not helpful) and try Percocet. We discussed importance of not using 2 Fentanyl patches at a time (she stated that when it was time to apply a new Fentanyl patch the last time, she decided to leave the last one on, hoping it would help with her pain). She has had 1 visit with a pain mgt specialist and has another one coming up. Resume Flexeril PRN. Hold off on restarting Fentanyl patch for now. Discussed code status - she would want an attempt at resuscitation, so will leave as full code. She reports that she has a living will and her sons know that she would not want to be kept alive on a ventilator. Weight loss and anorexia, nausea, fatigue - [facility] chart reviewed - no recent TSH or iron or B12 studies - will assess now. Urine culture from 07/24/17 was negative. Check prealbumin - may need dietary consult. Home medications reviewed with Aziza; not all were resumed. Lisinopril still on hold. Discharge planning: will consult PT/OT to see if she will be safe to return home alone. She has a son in [place] who offered to come down and help if needed. If she continues to improve, possibly could discharge in the next 24-48 hours. <Margarita Richardson - Last Filed: 07/26/17 17:58> Objective Vital signs: Temperature 98.0 F 07/26/17 15:00 Pulse Rate 79 07/26/17 16:05 Respiratory Rate 17 07/26/17 15:00 Blood Pressure 152/87 H 07/26/17 15:00 Pulse Oximetry 100 07/26/17 15:00 Height/Weight/BMI: Height 5 ft 7 in Weight 104 lb 11.513 oz Body Mass Index 16.4 Results - Labs CBC & Chem 7: 07/26/17 09:04 07/26/17 09:04 Assessment and Plan (1) Acute encephalopathy Current visit: Yes Status: Acute (2) Acute kidney injury Current visit: Yes Status: Acute Assessment and Plan: I have independently evaluated and examined this patient. I reviewed the chart, the patient's history, and the PLANT ATTENDANT OR ASSISTANT OPERATOR/PA's documented findings as above. We discussed and formulated the assessment and plan as above with additions as below. The patient was seen and examined by me at 5 PM, I discussed her care with her son Manish [phone]. The patient is more alert today. She appears comfortable laying in bed and her pain appears to be managed well. She is off fentanyl and off narcotics. On physical exam, mentally she is alert and oriented 3 she does not appear to be in any acute distress. Oral mucosa is slightly erythematous. Abdomen bowel sounds are present there is no guarding no rebound hepatosplenomegaly Agree with plans as listed above. The patient's creatinine is improved at 1.8 suspect this was secondary to a combination of trimethoprim sulfa as well as dehydration. Her bigger issue is pain management. She saw Dr. Daigle nurse practitioner or PA regarding her back pain as an outpatient. She was given several options for treatment, but she wanted to talk with Dr. Daigle directly. This has not occurred at this point. The patient's management of her pain will be a problem as she cannot be on nonsteroidals secondary to her acute renal failure, she has had issues with narcotics including overdose with fentanyl patch leading to her admission. Ideally she would have a local treatment for her low back pain such as an injection or a block and then supplemental pain medication directed by one physician. This was discussed with the patient and the patient's son at length. I'll try to get ahold of Dr. Abrams tomorrow if that is the physician that the patient chooses to follow up with. In addition she has off lisinopril secondary to her acute renal failure she has not on any medication for blood pressure will need to watch her closely. Patient care time was 1 hour including conversations with the son. Hospital Course Summary Disclaimer: The visit summary below is not to be considered part of the above Progress Note. Addendum entered and electronically signed by Carltoa Schneider APRN 07/26/17 16: 27: Discussed with RD - recommend folate and zinc testing in addition to iron, Vitamin B12. Zinc deficiency can cause altered taste, which she's had for several months. Her tongue appeared red and swollen, raising suspicion for other anemias.
[2017-07-26] MEDS: OXYCODONE/APAP 7.5 MG/325 MG TABLET PO PRN ×2 (14:46→20:42)
[2017-07-26] MEDS: SALINE FLUSH 10ml SYRINGE IVF PRN (14:47)
[2017-07-26 16:40] VITALS: BMI 16.4
[2017-07-26] MEDS: NICOTINE 21 MG PATCH TD SCH (17:46)
[2017-07-26] MEDS: CYCLOBENZAPRINE 10 MG TABLET PO PRN (17:46)
[2017-07-26] MEDS: TEMAZEPAM 30 MG CAPSULE PO PRN (20:42)
[2017-07-26] MEDS: ARTIFICIAL TEARS 15ml RIGHT EYE SCH (20:54)
[2017-07-27] MEDS: NS 1,000 ML IV SCH ×2 (00:55→11:00)
[2017-07-27] MEDS ORDERED: OXYCODONE/APAP 7.5 MG/325 MG TABLET PO PRN (03:32)
[2017-07-27] MEDS: LORazepam 1 MG TABLET PO PRN (03:37)
[2017-07-27] MEDS: ARTIFICIAL TEARS 15ml RIGHT EYE SCH ×2 (09:35→22:10)
[2017-07-27] MEDS: CALCITONIN NASAL SPRAY 3.7ml NS SCH (09:36)
[2017-07-27] MEDS: NICOTINE 21 MG PATCH TD SCH (09:36)
[2017-07-27] MEDS: ASCORBIC ACID 500 MG TABLET PO SCH (09:37)
[2017-07-27] MEDS: NICOTINE PATCH REMOVAL TD SCH (09:37)
[2017-07-27] MEDS: ASPIRIN 325 MG TABLET PO SCH (09:37)
[2017-07-27] MEDS: MULTI-VITAMIN PLAIN TABLET PO SCH (09:38)
[2017-07-27] MEDS: CALCIUM 600 + VIT D 400 TABLET PO SCH (09:38)
[2017-07-27] MEDS: CYCLOBENZAPRINE 10 MG TABLET PO PRN ×3 (09:38→22:11)
[2017-07-27] MEDS: BuPROPion XL 150mg (24HR) TABLET PO SCH (09:38)
[2017-07-27] MEDS: CALCIUM POLYCARBOPHIL 625 MG TABLET PO SCH (09:38)
[2017-07-27] MEDS: ACETAMINOPHEN 325 MG TABLET PO PRN ×2 (12:25→17:35)
--- NOTE | 2017-07-27 14:32 | Progress Note ---
<Carlota Schneider - Last Filed: 07/27/17 14:28> Subjective: Lissa feels much better today. Her thinking is clearer and she doesn't feel fuzzy anymore. Her son, who came in from [place], agrees. She is still having significant pain. The Percocet seems to control it better compared to [place]. She is still nauseated, but is having more frequent bowel movements compared to that at home, where she is typically constipated. She was able to eat 50% of lunch today, but only had bites for breakfast. Blood pressure has escalated since yesterday, as high as 214/99 this morning. She states she has not been sleeping well here and is ready to go home. Objective Vital signs: Temperature 96.3 F L 07/27/17 08:00 Pulse Rate 64 07/27/17 08:30 Respiratory Rate 18 07/27/17 08:30 Blood Pressure 187/97 H 07/27/17 08:30 Pulse Oximetry 100 07/27/17 08:00 Height/Weight/BMI: Height 1.7 m Weight 47.6 kg Body Mass Index 16.4 - Constitutional Present: no acute distress, well nourished, well developed - Routine HEENT Exam Eye: Absent: PERRL ENT: Present: mucous membranes moist - Routine Respiratory Exam Present: CTA bilaterally - Routine Cardiovascular Exam Present: RRR, S1, S2, murmur (2/6 systolic murmur) - Routine Abdominal Exam Present: soft, normoactive bowel sounds, non distended, non tender - Routine Extremities Exam Present: no edema - Routine Skin Exam Present: intact, dry - Routine Neurological Exam Present: alert, oriented X3 - Routine Psychiatric Exam Present: normal affect, normal thought process, cooperative Results - Labs CBC & Chem 7: 07/27/17 08:31 07/27/17 08:31 Assessment and Plan (1) Acute encephalopathy Current visit: Yes Status: Acute (2) Acute kidney injury Current visit: Yes Status: Acute Assessment and Plan: Assessment Acute encephalopathy - resolved. Acute kidney injury-baseline creatinine 1.1, creatinine on admission 3.1 - resolved. Hypertension Recent urinary tract infection Frequent falls Right flank ecchymosis Chronic back pain - lumbar burst fracture Anxiety Insomnia Osteoporosis with osteopenia History of alcoholism - sober since 2005 Blind right eye Plan Renal function has returned to baseline. However, with recent ALLI would continue to hold Lisinopril at least for a few days. Acute encephalopathy has nearly, if not completely, resolved. More pressing is her elevated blood pressure, which could be an acute pain response. Will start Norvasc 5 mg today We would like to have a safe narcotic discharge plan before sending her home - Dr. Richardson is planning on discussing case with Dr. Daigle. Evaluated by PT: recommending IP PT. Sepsis Assessment - Evaluation Sepsis screening result: No Definite Risk Hospital Course Summary Disclaimer: The visit summary below is not to be considered part of the above Progress Note. Hospital Course: 07/25/17- initial admission Impression Acute encephalopathy. Acute kidney injury-baseline creatinine 1.1, creatinine on admission 3.1 Recent urinary tract infection Frequent falls Right flank ecchymosis Chronic back pain - lumbar burst fracture Hypertension Anxiety Insomnia Osteoporosis with osteopenia History of alcoholism - sober since 2005 Blind right eye Plan Will admit patient as an inpatient under the care of Dr. Richardson for acute encephalopathy with acute kidney injury. She does meet inpatient criteria. Given her significant rise in creatinine has her baseline is 1.1. Creatinine today. 3.1 Will obtain the following laboratory studies on admission- CBC, CMP Recheck urinalysis to evaluate for acute infectious process. In light of encephalopathy, accompanied with frequent falls an unknown injury. Will obtain a CT scan of the head to rule out intracranial abnormalities or hemorrhaging. Even acute kidney injury and rise in creatinine as well as extensive ecchymosis to the right flank and right side. Will obtain a renal ultrasound to rule out renal trauma. Fentanyl patch 100mcg 2 removed from low back on admission. Will need to monitor for acute opiate withdrawal as patient chronically uses both that now and [place] for chronic pain. Place patient on telemetry to her for dysrhythmias. Normal saline at 100 ML per hour for gentle hydration. Will need to review home medications once they're reconciled in the computer. It does appear that patient is on lisinopril for chronic hypertension. This will need to be held given her acute kidney injury. Patient does request to be a do not resuscitate and this order is written Will discuss further orders and plan of care with attending, Dr. Richardson. At time of discharge her medical care is to return to her primary care provider , Dr. Rika Segovia 07/26/17 Renal function continues to improve - creatinine down to 1.8. Continue IVF. C/o nausea - add Zofran PRN. Could be r/t narcotics. Will stop [place] (pt reports not helpful). We discussed importance of not using 2 Fentanyl patches at a time (she stated that when it was time to apply a new Fentanyl patch the last time, she decided to leave the last one on, hoping it would help with her pain). She has had 1 visit with a pain mgt specialist and has another one coming up. Resume Flexeril PRN. Hold off on restarting Fentanyl patch for now. Discussed code status - she would want an attempt at resuscitation, so will leave as full code. She reports that she has a living will and her sons know that she would not want to be kept alive on a ventilator. Weight loss and anorexia, nausea, fatigue - [facility] chart reviewed - no recent TSH or iron or B12 studies - will assess now. Urine culture from 07/24/17 was negative. Check prealbumin - may need dietary consult. Home medications reviewed with Aziza; not all were resumed. Lisinopril still on hold. 07/27/17 Renal function has returned to baseline. However, with recent ALLI would continue to hold Lisinopril at least for a few days. Acute encephalopathy has nearly, if not completely, resolved. More pressing is her elevated blood pressure, which could be an acute pain response. Will start Norvasc 5 mg today We would like to have a safe narcotic discharge plan before sending her home - Dr. Richardson is planning on discussing case with Dr. Daigle. Evaluated by PT: recommending IP PT. <Margarita Richardson - Last Filed: 07/27/17 19:34> Objective Vital signs: Temperature 96.1 F L 07/27/17 16:00 Pulse Rate 82 07/27/17 18:00 Respiratory Rate 18 07/27/17 18:00 Blood Pressure 185/97 H 07/27/17 18:00 Pulse Oximetry 100 07/27/17 16:00 Height/Weight/BMI: Height 5 ft 7 in Weight 104 lb 15.04 oz Body Mass Index 16.4 Results - Labs CBC & Chem 7: 07/27/17 08:31 07/27/17 08:31 Assessment and Plan (1) Acute encephalopathy Current visit: Yes Status: Acute (2) Acute kidney injury Current visit: Yes Status: Acute Assessment and Plan: I have independently evaluated and examined this patient. I reviewed the chart, the patient's history, and the DYEING MACHINE TENDER/PA's documented findings as above. We discussed and formulated the assessment and plan as above with additions as below. In general, the patient is alert and oriented 3, cooperative with exam, and in no respiratory distress. HEENT: Head is atraumatic, normocephalic, no conjunctival petechiae, no oral thrush, mucous membranes are moist and pink. Lungs: Clear to auscultation without wheezes, crackles or rhonchi CV: Regular rate and rhythm without murmur Abdomen: Soft, nontender, bowel sounds are present, there is no guarding no rebound. Extremities: No clubbing, no cyanosis, no edema. Skin: Warm and dry no sign of rash Neuro: Patient is alert I was able to discuss the patient's care with Dr. Abrams this evening. Mrs. Latif was referred to Dr. Abrams by Dr. Jabari Castillo, the spine surgeon for treatment of a burst fracture of L1. She was seen by one of his physician extenders who gave her several options for therapy, they were waiting for her to decide which option she would choose. Dr. Abrams reviewed her scans which showed multiple herniated disks as well as is a retropulsed L1 and central canal narrowing. I updated him on on the recent events which led up to the patient's hospitalization. I believe her acute renal failure was due to a combination of dehydration while overmedicated with her pain medications exacerbated by the use of trimethoprim sulfa. Her renal function is back to normal. Unfortunately her blood pressure remains high because of the need to discontinue her lisinopril. She is currently receiving Norvasc which she received at about 5 PM this evening and in addition I started her on hydrochlorothiazide this morning. She may benefit from simplifying her antihypertensive to clonidine. Both Dr. Abrams and I agree that her pain medicine spent is challenging at this time. She cannot receive nonsteroidals secondary to renal failure. I am reluctant to give her narcotics at this time as is Dr. Abrams. We have agreed that the plan of treatment for this week will be Tylenol [id number], a polar pack, and a back brace. Dr. Abrams will have his scheduling person at the office call the continuous pillowcase cutter at [facility] on Sunday. The plan is to have the patient discharged from [facility] on Sunday, and to go directly to his office for definitive procedure more than likely an epidural. This was discussed with the patient, the patient's son and Dr. Abrams at length. In addition the patient's son is very concerned about the patient going home alone again. He has requested case management speak with him tomorrow about options for home health care, acute indication order has been placed. - Time spent with patient greater than 35 minutes Coordination of Care: >50% of visit spent providing counseling/coordination of care Hospital Course Summary Disclaimer: The visit summary below is not to be considered part of the above Progress Note.
[2017-07-27] MEDS: AMLODIPINE 5 MG TABLET PO SCH (17:36)
[2017-07-27] MEDS: TEMAZEPAM 30 MG CAPSULE PO PRN (22:11)
[2017-07-28] MEDS: ACETAMINOPHEN 325 MG TABLET PO SCH ×5 (00:21→20:55)
[2017-07-28] MEDS: SALINE FLUSH 10ml SYRINGE IVF PRN ×3 (00:23→20:56)
[2017-07-28] MEDS: LORazepam 1 MG TABLET PO PRN (02:37)
[2017-07-28] MEDS: CYCLOBENZAPRINE 10 MG TABLET PO PRN (07:45)
[2017-07-28] MEDS: CALCITONIN NASAL SPRAY 3.7ml NS SCH (09:07)
[2017-07-28] MEDS: CALCIUM POLYCARBOPHIL 625 MG TABLET PO SCH (09:08)
[2017-07-28] MEDS: NICOTINE PATCH REMOVAL TD SCH (09:08)
[2017-07-28] MEDS: CALCIUM 600 + VIT D 400 TABLET PO SCH (09:08)
[2017-07-28] MEDS: NICOTINE 21 MG PATCH TD SCH (09:08)
[2017-07-28] MEDS: BuPROPion XL 150mg (24HR) TABLET PO SCH (09:08)
[2017-07-28] MEDS: ARTIFICIAL TEARS 15ml RIGHT EYE SCH ×2 (09:08→20:56)
[2017-07-28] MEDS: ASPIRIN 325 MG TABLET PO SCH (09:08)
[2017-07-28] MEDS: AMLODIPINE 5 MG TABLET PO SCH (09:09)
[2017-07-28] MEDS: MULTI-VITAMIN PLAIN TABLET PO SCH (09:09)
[2017-07-28] MEDS: ASCORBIC ACID 500 MG TABLET PO SCH (09:09)
[2017-07-28] MEDS: LISINOPRIL 5 MG TABLET PO SCH (10:31)
--- NOTE | 2017-07-28 17:51 | Progress Note ---
Subjective: Pt is awake alert and conversant. Appears to be doing better of her encephalopathy. Still has significant pain on her lower back. She is OFF opioids Objective Vital signs: Temperature 98.7 F 07/28/17 15:27 Pulse Rate 92 07/28/17 16:00 Respiratory Rate 18 07/28/17 15:27 Blood Pressure 146/88 H 07/28/17 15:27 Pulse Oximetry 100 07/28/17 15:27 Rhythm: Normal Sinus Rhythm Height/Weight/BMI: Height 5 ft 7 in Weight 46.4 kg Body Mass Index 16.4 - Constitutional Present: no acute distress, cachectic - Routine HEENT Exam Head: Present: normocephalic, atraumatic Eye: Present: EOMI, PERRL - Routine Cardiovascular Exam Present: RRR, S1, S2 - Routine Abdominal Exam Present: soft, non distended, non tender - Routine Extremities Exam Absent: cyanosis, clubbing, edema - Routine Skin Exam Present: intact - Routine Neurological Exam Present: alert, oriented X3 - Routine Psychiatric Exam Present: cooperative, good judgment Results - Labs CBC & Chem 7: 07/27/17 08:31 07/28/17 04:09 Assessment and Plan (1) Acute encephalopathy Current visit: Yes Status: Acute (2) Acute kidney injury Current visit: Yes Status: Acute Assessment and Plan: This is a 72 YO patient that was admitted with MS changes thought to be due in part to opioids she was using for chronic back pain. She has been managed without Opioids and is doing fair on Tylenol alone. She states she had an L1 fracture in the past and has been diagnosed with osteopenia, but has not been given Fosamax or any other medications to protect her bones. DIAGNOSIS AND PLAN - 1) Burst fracture of L1. Dr Roca reviewed the case and discussed with Dr. Abrams; he reviewed her scans which showed multiple herniated disks as well as is a retropulsed L1 and central canal narrowing. She had a recent epiosode of ALLI that was thought to be pre-renal and due to Bactrim. - No surgery is comtemplated at present 2) Delirium - improved - due to opioids ? - CT head negative - TME ? 3) Renal failure with Hyperkalemia on admisison - Resolved now, with HBP - Lisinopril was resumed. - Check labs in the AM - Continue with Norvasc. 4) Chronic low back pain - Dr Roca spoke with Dr. Abrams will have his scheduling person at the office call the case reviewer at [facility] on Sunday. The plan is to have the patient discharged from [facility] on Sunday, and to go directly to his office for definitive procedure more than likely an epidural. This was discussed with the patient, the patient's son and Dr. Abrams at length. - Pt could need to go to SNIF or [facility]. 5) Hypokalemia today (Mild K = 3.5) - This should correct with ACEI Prevention. SCD's Add PPI. Sepsis Assessment - Evaluation Sepsis screening result: No Definite Risk Hospital Course Summary Disclaimer: The visit summary below is not to be considered part of the above Progress Note. Hospital Course: 07/25/17- initial admission Impression Acute encephalopathy. Acute kidney injury-baseline creatinine 1.1, creatinine on admission 3.1 Recent urinary tract infection Frequent falls Right flank ecchymosis Chronic back pain - lumbar burst fracture Hypertension Anxiety Insomnia Osteoporosis with osteopenia History of alcoholism - sober since 2005 Blind right eye Plan Will admit patient as an inpatient under the care of Dr. Richardson for acute encephalopathy with acute kidney injury. She does meet inpatient criteria. Given her significant rise in creatinine has her baseline is 1.1. Creatinine today. 3.1 Will obtain the following laboratory studies on admission- CBC, CMP Recheck urinalysis to evaluate for acute infectious process. In light of encephalopathy, accompanied with frequent falls an unknown injury. Will obtain a CT scan of the head to rule out intracranial abnormalities or hemorrhaging. Even acute kidney injury and rise in creatinine as well as extensive ecchymosis to the right flank and right side. Will obtain a renal ultrasound to rule out renal trauma. Fentanyl patch 100mcg 2 removed from low back on admission. Will need to monitor for acute opiate withdrawal as patient chronically uses both that now and [place] for chronic pain. Place patient on telemetry to her for dysrhythmias. Normal saline at 100 ML per hour for gentle hydration. Will need to review home medications once they're reconciled in the computer. It does appear that patient is on lisinopril for chronic hypertension. This will need to be held given her acute kidney injury. Patient does request to be a do not resuscitate and this order is written Will discuss further orders and plan of care with attending, Dr. Richardson. At time of discharge her medical care is to return to her primary care provider , Dr. Rika Segovia 07/26/17 Renal function continues to improve - creatinine down to 1.8. Continue IVF. C/o nausea - add Zofran PRN. Could be r/t narcotics. Will stop [place] (pt reports not helpful). We discussed importance of not using 2 Fentanyl patches at a time (she stated that when it was time to apply a new Fentanyl patch the last time, she decided to leave the last one on, hoping it would help with her pain). She has had 1 visit with a pain mgt specialist and has another one coming up. Resume Flexeril PRN. Hold off on restarting Fentanyl patch for now. Discussed code status - she would want an attempt at resuscitation, so will leave as full code. She reports that she has a living will and her sons know that she would not want to be kept alive on a ventilator. Weight loss and anorexia, nausea, fatigue - [facility] chart reviewed - no recent TSH or iron or B12 studies - will assess now. Urine culture from 07/24/17 was negative. Check prealbumin - may need dietary consult. Home medications reviewed with [facility]; not all were resumed. Lisinopril still on hold. 07/27/17 Renal function has returned to baseline. However, with recent ALLI would continue to hold Lisinopril at least for a few days. Acute encephalopathy has nearly, if not completely, resolved. More pressing is her elevated blood pressure, which could be an acute pain response. Will start Norvasc 5 mg today We would like to have a safe narcotic discharge plan before sending her home - Dr. Richardson is planning on discussing case with Dr. Daigle. Evaluated by PT: recommending IP PT.
[2017-07-28] MEDS ORDERED: FALL RISK - PHARMACY CONSULT MC PRN (21:40)
[2017-07-29] MEDS: ACETAMINOPHEN 325 MG TABLET PO SCH ×5 (01:39→21:16)
[2017-07-29] MEDS: SALINE FLUSH 10ml SYRINGE IVF PRN ×2 (05:24→21:17)
[2017-07-29] MEDS: ASCORBIC ACID 500 MG TABLET PO SCH (09:02)
[2017-07-29] MEDS: CALCIUM POLYCARBOPHIL 625 MG TABLET PO SCH (09:02)
[2017-07-29] MEDS: MULTI-VITAMIN PLAIN TABLET PO SCH (09:02)
[2017-07-29] MEDS: CYCLOBENZAPRINE 10 MG TABLET PO PRN ×2 (09:02→18:56)
[2017-07-29] MEDS: BuPROPion XL 150mg (24HR) TABLET PO SCH (09:02)
[2017-07-29] MEDS: ASPIRIN 325 MG TABLET PO SCH (09:02)
[2017-07-29] MEDS: AMLODIPINE 5 MG TABLET PO SCH (09:02)
[2017-07-29] MEDS: CALCIUM 600 + VIT D 400 TABLET PO SCH (09:02)
[2017-07-29] MEDS: NICOTINE 21 MG PATCH TD SCH (09:03)
[2017-07-29] MEDS: LISINOPRIL 5 MG TABLET PO SCH (09:03)
[2017-07-29] MEDS: NICOTINE PATCH REMOVAL TD SCH (09:04)
[2017-07-29] MEDS: ARTIFICIAL TEARS 15ml RIGHT EYE SCH ×2 (09:04→21:15)
[2017-07-29] MEDS: CALCITONIN NASAL SPRAY 3.7ml NS SCH (09:04)
--- NOTE | 2017-07-29 11:46 | Progress Note ---
<JennieCarlota D - Last Filed: 07/29/17 11:42> Subjective: Lissa was sitting in bed, reading. Her son was at bedside. Overall, she is feeling much better. She rates her back pain at a 5 or 6 out of 10. Her biggest concern is being able to see her pain management doctor tomorrow. She plans to go back home, and would like to have home health. She is not interested in going to a nursing facility. She feels like her thought process is clear, and her son agrees, though states she has a little bit fuzzy, which he attributes to being in the same room for the last 3 days. She denies any chest pain or shortness of breath. She has been ambulating well, and went for a fairly long walk earlier today already. She denies any abdominal pain or nausea. Objective Vital signs: Temperature 98.2 F 07/29/17 07:41 Pulse Rate 87 07/29/17 07:43 Respiratory Rate 18 07/29/17 07:41 Blood Pressure 151/90 H 07/29/17 07:41 Pulse Oximetry 100 07/29/17 07:41 Rhythm: Normal Sinus Rhythm Height/Weight/BMI: Height 1.7 m Weight 48.1 kg Body Mass Index 16.4 - Constitutional Present: no acute distress, well nourished, well developed, thin - Routine HEENT Exam ENT: Present: mucous membranes moist, oropharynx clear - Routine Respiratory Exam Present: CTA bilaterally - Routine Cardiovascular Exam Present: RRR, S1, S2 - Routine Abdominal Exam Present: soft, normoactive bowel sounds, non distended, non tender - Routine Extremities Exam Present: no edema - Routine Skin Exam Present: intact, dry, warm, ecchymosis (ecchymosis to right flank is beginning to fade) - Routine Neurological Exam Present: alert, oriented X3, CN II-XII intact, normal speech - Routine Psychiatric Exam Present: normal affect, normal thought process, cooperative Results - Labs CBC & Chem 7: 07/29/17 05:03 07/29/17 05:03 Assessment and Plan (1) Acute encephalopathy Current visit: Yes Status: Acute (2) Acute kidney injury Current visit: Yes Status: Acute Resuscitation Status: Full Code Assessment and Plan: Assessment Acute encephalopathy. Acute kidney injury-baseline creatinine 1.1, creatinine on admission 3.1 Hypokalemia (not POA) Recent urinary tract infection Frequent falls Right flank ecchymosis Chronic back pain - lumbar burst fracture Hypertension Anxiety Insomnia Osteoporosis with osteopenia History of alcoholism - sober since 2005 Blind right eye Plan Renal function has returned to baseline (though BUN increased from yesterday). Lisinopril has been resumed, and actually increased to 10 mg due to persistently elevated BP. Continue Norvasc. Hypokalemia - corrected. Back pain; L1 burst fx - will ask CM to contact Dr. Abrams's office first thing in am to try to set up an appt for tomorrow. Telemetry reviewed - sinus and sinus tach. Will DC. DC plan: she is not interested in SNF. She intends on going home with Home Health. Dipti is leaving for [place] tomorrow evening but his brother from will be coming down to help tomorrow. We could also consider getting a MIKE on her before discharge, or perhaps in outpatient setting. Sepsis Assessment - Evaluation Sepsis screening result: No Definite Risk Hospital Course Summary Disclaimer: The visit summary below is not to be considered part of the above Progress Note. Hospital Course: 07/25/17- initial admission Impression Acute encephalopathy. Acute kidney injury-baseline creatinine 1.1, creatinine on admission 3.1 Recent urinary tract infection Frequent falls Right flank ecchymosis Chronic back pain - lumbar burst fracture Hypertension Anxiety Insomnia Osteoporosis with osteopenia History of alcoholism - sober since 2005 Blind right eye Plan Will admit patient as an inpatient under the care of Dr. Richardson for acute encephalopathy with acute kidney injury. She does meet inpatient criteria. Given her significant rise in creatinine has her baseline is 1.1. Creatinine today. 3.1 Will obtain the following laboratory studies on admission- CBC, CMP Recheck urinalysis to evaluate for acute infectious process. In light of encephalopathy, accompanied with frequent falls an unknown injury. Will obtain a CT scan of the head to rule out intracranial abnormalities or hemorrhaging. Even acute kidney injury and rise in creatinine as well as extensive ecchymosis to the right flank and right side. Will obtain a renal ultrasound to rule out renal trauma. Fentanyl patch 100mcg 2 removed from low back on admission. Will need to monitor for acute opiate withdrawal as patient chronically uses both that now and [place] for chronic pain. Normal saline at 100 ML per hour for gentle hydration. Will need to review home medications once they're reconciled in the computer. It does appear that patient is on lisinopril for chronic hypertension. This will need to be held given her acute kidney injury. 07/26/17 Renal function continues to improve - creatinine down to 1.8. Continue IVF. C/o nausea - add Zofran PRN. Could be r/t narcotics. Will stop [place] (pt reports not helpful). We discussed importance of not using 2 Fentanyl patches at a time (she stated that when it was time to apply a new Fentanyl patch the last time, she decided to leave the last one on, hoping it would help with her pain). She has had 1 visit with a pain mgt specialist and has another one coming up. Resume Flexeril PRN. Hold off on restarting Fentanyl patch for now. Discussed code status - she would want an attempt at resuscitation, so will leave as full code. She reports that she has a living will and her sons know that she would not want to be kept alive on a ventilator. Weight loss and anorexia, nausea, fatigue - [facility] chart reviewed - no recent TSH or iron or B12 studies - will assess now. Urine culture from 07/24/17 was negative. Check prealbumin - may need dietary consult. Home medications reviewed with [facility]; not all were resumed. Lisinopril still on hold. 07/27/17 Renal function has returned to baseline. However, with recent ALLI would continue to hold Lisinopril at least for a few days. Acute encephalopathy has nearly, if not completely, resolved. More pressing is her elevated blood pressure, which could be an acute pain response. Will start Norvasc 5 mg today We would like to have a safe narcotic discharge plan before sending her home - Dr. Richardson is planning on discussing case with Dr. Daigle. Evaluated by PT: recommending IP PT. 07/29/17 Renal function has returned to baseline (though BUN increased from yesterday). Lisinopril has been resumed, and actually increased to 10 mg due to persistently elevated BP. Continue Norvasc. Hypokalemia - corrected. Back pain; L1 burst fx - will ask CM to contact Dr. Abrams's office first thing in am to try to set up an appt for tomorrow. DC plan: she is not interested in SNF. She intends on going home with Home Health. Dipti is leaving for [place] tomorrow evening but his brother from will be coming down to help tomorrow. We could also consider getting a MIKE on her before discharge, or perhaps in outpatient setting. DC tele - sinus/tach. <Alf Rich - Last Filed: 07/29/17 15:21> Objective Vital signs: Temperature 97.6 F 07/29/17 15:13 Pulse Rate 87 07/29/17 15:13 Respiratory Rate 16 07/29/17 15:13 Blood Pressure 134/84 07/29/17 15:13 Pulse Oximetry 98 07/29/17 15:13 Height/Weight/BMI: Height 5 ft 7 in Weight 48.1 kg Body Mass Index 16.4 Results - Labs CBC & Chem 7: 07/29/17 05:03 07/29/17 05:03 Assessment and Plan (1) Acute encephalopathy Current visit: Yes Status: Acute (2) Acute kidney injury Current visit: Yes Status: Acute Assessment and Plan: I have seen and examined this patient independently and agree with above plan of care. On PE Pt is well hydrated Forgetful but cooperates Neck supple Chest clear RRR Abd - soft NT/NT Ext - No edema Labs reviewed. This is a 72 YO patient that was admitted with MS changes thought to be due in part to opioids she was using for chronic back pain. She has been managed without Opioids and is doing fair on Tylenol alone. She states she had an L1 fracture in the past and has been diagnosed with osteopenia and osteoporosis. DIAGNOSIS AND PLAN - 1) Burst fracture of L1. Dr Roca reviewed the case and discussed with Dr. Abrams; he reviewed her scans which showed multiple herniated disks as well as is a retropulsed L1 and central canal narrowing. She had a recent epiosode of ALLI that was thought to be pre-renal + Bactrim effect - No surgery is comtemplated at present - Pt will probably have an epidural shot in the AM - Per Dr Wilder's notes. 2) Delirium - improved - due to opioids ? - CT head negative - TME ? resolved. 3) Renal failure with Hyperkalemia on admission - Resolved now. - Lisinopril was resumed on 07/28 @ 5mg/day today increased to 10mg/day. - Continue with Norvasc. 4) Chronic low back pain - Dr Roca spoke with Dr. Abrams will have his scheduling person at the office call the assistant case manager at [facility] on Sunday. The plan is to have the patient discharged from [place] on Sunday, and to go directly to his office for definitive procedure more than likely an epidural. - Pt could need to go to SNIF or Assisted living. 5) Hypokalemia - resolved. Prevention. SCD's PPI. Hospital Course Summary Disclaimer: The visit summary below is not to be considered part of the above Progress Note.
[2017-07-29] MEDS: TEMAZEPAM 30 MG CAPSULE PO PRN (21:17)
[2017-07-29] MEDS: LORazepam 1 MG TABLET PO PRN ×2 (23:54)
[2017-07-30] MEDS: ACETAMINOPHEN 325 MG TABLET PO SCH ×3 (02:13→11:15)
[2017-07-30] MEDS: CYCLOBENZAPRINE 10 MG TABLET PO PRN (05:15)
[2017-07-30 08:14] VITALS: BP 118/69; PULSE 93; RESP 16; TEMP 98.2; O2SAT 93
[2017-07-30] MEDS ORDERED: LISINOPRIL 10 MG TABLET PO SCH (09:00)
[2017-07-30] MEDS: CALCIUM 600 + VIT D 400 TABLET PO SCH (09:40)
[2017-07-30] MEDS: ASPIRIN 325 MG TABLET PO SCH (09:40)
[2017-07-30] MEDS: CALCITONIN NASAL SPRAY 3.7ml NS SCH (09:41)
[2017-07-30] MEDS: CALCIUM POLYCARBOPHIL 625 MG TABLET PO SCH (09:41)
[2017-07-30] MEDS: AMLODIPINE 5 MG TABLET PO SCH (09:42)
[2017-07-30] MEDS: BuPROPion XL 150mg (24HR) TABLET PO SCH (09:43)
[2017-07-30] MEDS: MULTI-VITAMIN PLAIN TABLET PO SCH (09:43)
[2017-07-30] MEDS: ASCORBIC ACID 500 MG TABLET PO SCH (09:43)
[2017-07-30] MEDS: ARTIFICIAL TEARS 15ml RIGHT EYE SCH (09:43)
--- NOTE | 2017-07-30 10:42 | Discharge Instructions ---
<Hemalatha Peraza - Last Filed: 07/30/17 10:51> Discharge Plan - Med Rec/Dispo Referrals/Follow Up: Rika Segovia DO [Family Provider] - 1 Week KAIT SANDOVAL MD [Physician Nonstaff] - (will be seen at noon today. Son will take pt there on dismissal.) [facility] Instructions: Acute Kidney Injury (GEN), Encephalopathy (GEN) Additional Instructions: Please set up Life Alert. The bottle caser should have given you the information you need to be able to do this. The bottle caser us getting home health set up for you. She will be in touch with you once this is finalized. Check your blood pressures daily and take list of your blood pressures with you to follow-up appointment with Dr. Segovia. Prescriptions: New Acetaminophen [Tylenol] 650 mg PO Q5H tablet Continue Aspirin 325 mg PO DAILY #0 Calcium Carbonate/Vitamin D3 [Calcium 600-Vit D3 200 Tablet] 1 tab PO DAILY # 0 Calcium Polycarbophil [Fiber] 1 tab PO DAILY Lisinopril [Prinivil] 5 mg PO DAILY Tolterodine Tartrate [Tolterodine Tartrate ER] 4 mg PO DAILY BuPROPion XL [Wellbutrin Xl] 150 mg PO DAILY Cholecalciferol (Vitamin D3) [Vitamin D3] 1 tab PO DAILY Ascorbate Calcium [Vitamin C] 500 mg PO DAILY Multivitamin [One Daily] 1 tab PO DAILY Vitamin E 100 unit PO DAILY Temazepam [Restoril] 30 mg PO HS PRN PRN Reason: Sleep Calcitonin Nasal [place] 1 spray NS DAILY Artificial Tears [Tears Naturale] 2 drops RIGHT EYE BID Glucosamine 1 tab PO DAILY Docusate Sodium [Stool Softener] 200 mg PO HS PRN PRN Reason: Constipation Sertraline [Zoloft] 100 mg PO DAILY Denosumab [Prolia] 60 mg SQ [id number] prednisoLONE acetate [Prednisolone Acetate] 1 drop LEFT EYE DAILY Levomefolate/Algal Oil [[place]plin-Algal Oil 15 mg Capsule] 1 cap PO DAILY Discontinued FentaNYL PATCH [Duragesic Patch] 100 mcg TD Q72H Hydrocodone/APAP 7.5/325 [[place] 7.5/325] 2 tab PO Q4H PRN PRN Reason: Pain Cyclobenzaprine [Flexeril] 1 tab PO TID PRN PRN Reason: Spasms Hydrocodone/Acetaminophen [Hydrocodon-Acetaminophn 10-325] 1 tab PO Q6H PRN PRN Reason: Pain Discharge Instructions/Outpatient Orders: Final Provider Discharge Instructions Location: Determined By Patient - Disposition 86 Home Health Service <Alf Rich - Last Filed: 07/30/17 18:20> Discharge Plan - Med Rec/Dispo - Attestation Attestation Narrative: 07/30/17 18:20 PT going home with home health
[2017-07-30] MEDS: NICOTINE 21 MG PATCH TD SCH (11:20)
[2017-07-30] MEDS: NICOTINE PATCH REMOVAL TD SCH (11:20)
--- NOTE | 2017-07-30 17:51 | Discharge Summary ---
Discharge Information Date of admission: 07/25/17 16:40 Anticipated date of discharge: 07/30/17 Attending Physician: Alf Rich MD Primary care physician: Rika Segovia DO Consults: - Discharge Diagnosis (1) Acute encephalopathy Status: Acute Discharge Diagnosis: Acute encephalopathy. Acute kidney injury-baseline creatinine 1.1, creatinine on admission 3.1 Hypokalemia (not POA) Recent urinary tract infection Frequent falls Right flank ecchymosis Chronic back pain - lumbar burst fracture Hypertension Anxiety Insomnia Osteoporosis with osteopenia History of alcoholism - sober since 2005 Blind right eye (2) Acute kidney injury Status: Acute Discharge Diagnosis: . - Laboratory Labs: 07/30/17 04:33 07/30/17 04:33 Laboratory Tests 07/25/17 07/25/17 07/25/17 16:38 18:25 18:25 WBC 4.4 L RBC 3.40 L Hgb 11.0 L Hct 33.3 L MCV 97.9 MCH 32.4 MCHC 33.0 RDW Std Deviation 40.1 Plt Count 223 MPV 8.7 L Immature Gran % (Auto) 0.0 Neut % (Auto) 65.5 Lymph % (Auto) 21.6 L [place] % (Auto) 7.7 Eos % (Auto) 4.1 H Baso % (Auto) 1.1 Neut # 2.9 Lymph # 1.0 [place] # 0.3 Eos # 0.2 Baso # 0.1 Abs Immat Gran (auto) 0.00 Neutrophils % (Manual) Lymphocytes % (Manual) Monocytes % (Manual) Eosinophils % (Manual) Basophils % (Manual) Neutrophils # (Manual) Lymphocytes # (Manual) Monocytes # (Manual) Eosinophils # (Manual) Basophils # (Manual) RBC Morph Comment Turbidity < 20 Sodium 137 Potassium 4.7 Chloride 107 Carbon Dioxide 20 L Anion Gap 10 BUN 39.0 H Creatinine 2.8 H GFR Calculation 17 BUN/Creatinine Ratio 14 Glucose 79 Calculated Osmolality 272 Calcium 8.7 Magnesium Iron TIBC % Saturation Total Bilirubin 0.30 Icterus Index < 2 AST 24 ALT 36 Alkaline Phosphatase 52 Total Protein 6.4 Albumin 3.8 Globulin 2.6 Albumin/Globulin Ratio 1.5 Prealbumin Vitamin B12 Folate TSH Specimen Hemolysis < 15 Ur Collection Type Urine, clean catch Urine Color Yellow Urine Clarity Clear Urine pH 5.5 Ur Specific [place] >=1.030 H Urine Protein Negative Urine Glucose (UA) Negative Urine Ketones Negative Urine Occult Blood Negative Urine Nitrate Negative Urine Bilirubin Negative Urine Urobilinogen 0.2 Ur Leukocyte Esterase Negative Urinalysis Comment Microscopic not ind. 07/26/17 07/26/17 07/26/17 09:04 09:04 09:04 WBC 4.7 RBC 3.31 L Hgb 10.5 L Hct 32.8 L MCV 99.1 MCH 31.7 MCHC 32.0 RDW Std Deviation 40.0 Plt Count 205 MPV 9.0 L Immature Gran % (Auto) 0.0 Neut % (Auto) 55.2 Lymph % (Auto) 26.6 [place] % (Auto) 9.1 H Eos % (Auto) 7.8 H Baso % (Auto) 1.3 Neut # 2.6 Lymph # 1.3 [place] # 0.4 Eos # 0.4 Baso # 0.1 Abs Immat Gran (auto) 0.00 Neutrophils % (Manual) Lymphocytes % (Manual) Monocytes % (Manual) Eosinophils % (Manual) Basophils % (Manual) Neutrophils # (Manual) Lymphocytes # (Manual) Monocytes # (Manual) Eosinophils # (Manual) Basophils # (Manual) RBC Morph Comment Turbidity < 20 Sodium 140 Potassium 4.5 Chloride 113 H Carbon Dioxide 19 L Anion Gap 8 BUN 28.0 H Creatinine 1.8 H D GFR Calculation 28 BUN/Creatinine Ratio 16 Glucose 78 Calculated Osmolality 274 Calcium 8.3 L Magnesium Iron TIBC % Saturation Total Bilirubin Icterus Index < 2 AST ALT Alkaline Phosphatase Total Protein Albumin Globulin Albumin/Globulin Ratio Prealbumin 21.7 Vitamin B12 Folate TSH Specimen Hemolysis < 15 Ur Collection Type Urine Color Urine Clarity Urine pH Ur Specific [place] Urine Protein Urine Glucose (UA) Urine Ketones Urine Occult Blood Urine Nitrate Urine Bilirubin Urine Urobilinogen Ur Leukocyte Esterase Urinalysis Comment 07/26/17 07/26/17 07/27/17 09:04 15:04 08:31 WBC 5.3 RBC 3.41 L Hgb 10.9 L Hct 33.1 L MCV 97.1 MCH 32.0 MCHC 32.9 RDW Std Deviation 38.3 Plt Count 239 MPV 8.9 L Immature Gran % (Auto) 0.0 Neut % (Auto) 57.9 Lymph % (Auto) 26.9 [place] % (Auto) 7.7 Eos % (Auto) 6.0 H Baso % (Auto) 1.5 Neut # 3.1 Lymph # 1.4 [place] # 0.4 Eos # 0.3 Baso # 0.1 Abs Immat Gran (auto) 0.00 Neutrophils % (Manual) Lymphocytes % (Manual) Monocytes % (Manual) Eosinophils % (Manual) Basophils % (Manual) Neutrophils # (Manual) Lymphocytes # (Manual) Monocytes # (Manual) Eosinophils # (Manual) Basophils # (Manual) RBC Morph Comment Turbidity Sodium Potassium Chloride Carbon Dioxide Anion Gap BUN Creatinine GFR Calculation BUN/Creatinine Ratio Glucose Calculated Osmolality Calcium Magnesium Iron 82 TIBC 276 % Saturation 30 Total Bilirubin Icterus Index AST ALT Alkaline Phosphatase Total Protein Albumin Globulin Albumin/Globulin Ratio Prealbumin Vitamin B12 528 Folate > 20.0 H TSH 0.87 Specimen Hemolysis Ur Collection Type Urine Color Urine Clarity Urine pH Ur Specific [place] Urine Protein Urine Glucose (UA) Urine Ketones Urine Occult Blood Urine Nitrate Urine Bilirubin Urine Urobilinogen Ur Leukocyte Esterase Urinalysis Comment 07/27/17 07/28/17 07/29/17 08:31 04:09 05:03 WBC 7.9 D RBC 4.00 Hgb 12.9 D Hct 38.1 D MCV 95.3 MCH 32.3 MCHC 33.9 RDW Std Deviation 39.3 Plt Count 313 MPV 9.1 L Immature Gran % (Auto) Not performed Neut % (Auto) Not performed Lymph % (Auto) Not performed [place] % (Auto) Not performed Eos % (Auto) Not performed Baso % (Auto) Not performed Neut # Not performed Lymph # Not performed [place] # Not performed Eos # Not performed Baso # Not performed Abs Immat Gran (auto) Not performed Neutrophils % (Manual) 45.0 Lymphocytes % (Manual) 47.0 H Monocytes % (Manual) 3.0 Eosinophils % (Manual) 4.0 Basophils % (Manual) 1.0 Neutrophils # (Manual) 3.6 Lymphocytes # (Manual) 3.7 Monocytes # (Manual) 0.2 Eosinophils # (Manual) 0.3 Basophils # (Manual) 0.1 RBC Morph Comment Normal Turbidity < 20 < 20 Sodium 143 144 Potassium 3.9 3.5 L Chloride 114 H 109 H Carbon Dioxide 22 25 Anion Gap 7 10 BUN 12.0 D 11.0 Creatinine 1.0 D 1.0 GFR Calculation 54 54 BUN/Creatinine Ratio 12 11 Glucose 84 91 Calculated Osmolality 274 276 Calcium 8.4 9.2 D Magnesium Iron TIBC % Saturation Total Bilirubin Icterus Index < 2 < 2 AST ALT Alkaline Phosphatase Total Protein Albumin Globulin Albumin/Globulin Ratio Prealbumin Vitamin B12 Folate TSH Specimen Hemolysis < 15 < 15 Ur Collection Type Urine Color Urine Clarity Urine pH Ur Specific [place] Urine Protein Urine Glucose (UA) Urine Ketones Urine Occult Blood Urine Nitrate Urine Bilirubin Urine Urobilinogen Ur Leukocyte Esterase Urinalysis Comment 07/29/17 07/30/17 07/30/17 05:03 04:33 04:33 WBC 8.0 RBC 4.03 Hgb 13.0 Hct 38.9 MCV 96.5 MCH 32.3 MCHC 33.4 RDW Std Deviation 40.3 Plt Count 337 MPV 9.0 L Immature Gran % (Auto) Not performed Neut % (Auto) Not performed Lymph % (Auto) Not performed [place] % (Auto) Not performed Eos % (Auto) Not performed Baso % (Auto) Not performed Neut # Not performed Lymph # Not performed [place] # Not performed Eos # Not performed Baso # Not performed Abs Immat Gran (auto) Not performed Neutrophils % (Manual) 56.0 Lymphocytes % (Manual) 42.0 Monocytes % (Manual) 2.0 Eosinophils % (Manual) Basophils % (Manual) Neutrophils # (Manual) 4.5 Lymphocytes # (Manual) 3.4 Monocytes # (Manual) 0.2 Eosinophils # (Manual) Basophils # (Manual) RBC Morph Comment Normal Turbidity < 20 < 20 Sodium 144 144 Potassium 3.7 3.3 L Chloride 110 H 111 H Carbon Dioxide 22 23 Anion Gap 12 10 BUN 19.0 H D 24.0 H Creatinine 1.1 1.1 GFR Calculation 49 49 BUN/Creatinine Ratio 17 22 Glucose 98 101 Calculated Osmolality 279 281 H Calcium 9.5 8.9 Magnesium 1.6 Iron TIBC % Saturation Total Bilirubin 0.60 Icterus Index < 2 < 2 AST 23 ALT 34 Alkaline Phosphatase 62 Total Protein 7.0 Albumin 4.2 Globulin 2.8 Albumin/Globulin Ratio 1.5 Prealbumin Vitamin B12 Folate TSH Specimen Hemolysis < 15 < 15 Ur Collection Type Urine Color Urine Clarity Urine pH Ur Specific [place] Urine Protein Urine Glucose (UA) Urine Ketones Urine Occult Blood Urine Nitrate Urine Bilirubin Urine Urobilinogen Ur Leukocyte Esterase Urinalysis Comment History of Present Illness HPI: HPI at time of admission: Marya is a 72-year-old female who has been under the primary care of Dr. Rika Segovia. Patient was seen in the emergency room last week on 07/20/17 with a complaint of encephalopathy. She was found to have a urinary tract infection. At that time her creatinine was noted to be elevated at 2.2. Her baseline from January 2017 was 1.2. She was placed on Bactrim antibiotic and instructed to follow with primary care. She was seen yesterday 07/24/17 at the primary care setting by Dr. Segovia. She was noted to have some mental status change and she reported to physician she's noticed some "sleepwalking". She reports last week she awoke to found herself in different rooms of the house. Laboratory studies were performed yesterday by Dr. Segovia. Urinalysis did reveal 1+ leukocyte esterase, 5-10 WBCs with presence of calcium oxalate and mucus. Her WBC count was found to be 4.5, hemoglobin 11.8, platelet count 223. Sodium was 138, potassium 4.3, BUN 36, creatinine 2.6. TSH 1.51. Patient was sent home, however , returns today for office follow-up. Today, renal function was rechecked at the office, creatinine found to be even higher at 3.1. Given this continued change accompanied with her encephalopathy hospitalist services were contacted and accepted patient for direct admission for further evaluation and treatment. Patient does meet criteria or inpatient, Given acute encephalopathy, accompanied with creatinine elevation doubling from baseline. It is expected that her stay will be greater than 2 overnights Marya is seen on arrival to [facility]. She is alert and pleasant during conversation. She does verbalize that she has felt more confused over the last several weeks. She notes that last Sunday and she awoke finding herself in different rooms. Her friend notes that at that time she was found to have her car door open, as well as a garage door open and it is unknown if she drove during this time. Patient reports she is also had multiple falls, however, she is unable unable to give any specific details. She is noted to have large area of ecchymosis to the right side and flank. When inquired regarding this. Patient states "I must have fallen". Patient is also found to have 2 fentanyl patches 100 micrograms each on her low back on admission. When matched with clinic med reconciliation, Patient is supposed to have only 100 micrograms on at a time. Patient states that over the last couple of weeks. She reports felt that she "wanted to get all she could" out of her Fentanyl patches so she has been rotating them every 3rd day, however, always leaving [address]. Patient states she has decreased her Clymer 10 mg tabs to 2 tabs at night. 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 We did discuss advanced directives and she does state that she is a do not resuscitate. Objective Vital signs: Temperature 98.2 F 07/30/17 07:00 Pulse Rate 93 07/30/17 07:00 Respiratory Rate 16 07/30/17 07:00 Blood Pressure 118/69 07/30/17 07:00 Pulse Oximetry 93 07/30/17 07:00 Height/Weight/BMI: Height 1.7 m Weight 47 kg Body Mass Index 16.4 - Constitutional Present: no acute distress, well developed, thin - Routine Respiratory Exam Present: CTA bilaterally. Absent: wheezes - Routine Cardiovascular Exam Present: RRR, S1, S2. Absent: murmur - Routine Abdominal Exam Present: soft, non distended. Absent: tenderness - Routine Extremities Exam Present: no edema, normal capillary refill Comments: scarring/deformity to R ankle/foot from previous surgery - Routine Skin Exam Present: dry, warm - Routine Neurological Exam Present: alert, oriented X3 - Routine Lymphatic Exam Lymphatic: Absent: adenopathy - Routine Psychiatric Exam Present: normal affect Hospital Course This is a general summary of the patient's hospital course. For more details refer to the complete medical record. Hospital course: 07/25/17- initial admission Impression Acute encephalopathy. Acute kidney injury-baseline creatinine 1.1, creatinine on admission 3.1 Recent urinary tract infection Frequent falls Right flank ecchymosis Chronic back pain - lumbar burst fracture Hypertension Anxiety Insomnia Osteoporosis with osteopenia History of alcoholism - sober since 2005 Blind right eye Plan Will admit patient as an inpatient under the care of Dr. Richardson for acute encephalopathy with acute kidney injury. She does meet inpatient criteria. Given her significant rise in creatinine has her baseline is 1.1. Creatinine today. 3.1 Will obtain the following laboratory studies on admission- CBC, CMP Recheck urinalysis to evaluate for acute infectious process. In light of encephalopathy, accompanied with frequent falls an unknown injury. Will obtain a CT scan of the head to rule out intracranial abnormalities or hemorrhaging. Even acute kidney injury and rise in creatinine as well as extensive ecchymosis to the right flank and right side. Will obtain a renal ultrasound to rule out renal trauma. Fentanyl patch 100mcg 2 removed from low back on admission. Will need to monitor for acute opiate withdrawal as patient chronically uses both that now and Clymer for chronic pain. Normal saline at 100 ML per hour for gentle hydration. Will need to review home medications once they're reconciled in the computer. It does appear that patient is on lisinopril for chronic hypertension. This will need to be held given her acute kidney injury. 07/26/17 Renal function continues to improve - creatinine down to 1.8. Continue IVF. C/o nausea - add Zofran PRN. Could be r/t narcotics. Will stop Clymer (pt reports not helpful). We discussed importance of not using 2 Fentanyl patches at a time (she stated that when it was time to apply a new Fentanyl patch the last time, she decided to leave the last one on, hoping it would help with her pain). She has had 1 visit with a pain mgt specialist and has another one coming up. Resume Flexeril PRN. Hold off on restarting Fentanyl patch for now. Discussed code status - she would want an attempt at resuscitation, so will leave as full code. She reports that she has a living will and her sons know that she would not want to be kept alive on a ventilator. Weight loss and anorexia, nausea, fatigue - [facility] [place] chart reviewed - no recent TSH or iron or B12 studies - will assess now. Urine culture from 07/24/17 was negative. Check prealbumin - may need dietary consult. Home medications reviewed with [facility]; not all were resumed. Lisinopril still on hold. 07/27/17 Renal function has returned to baseline. However, with recent ALLI would continue to hold Lisinopril at least for a few days. Acute encephalopathy has nearly, if not completely, resolved. More pressing is her elevated blood pressure, which could be an acute pain response. Will start Norvasc 5 mg today We would like to have a safe narcotic discharge plan before sending her home - Dr. Richardson is planning on discussing case with Dr. Daigle. Evaluated by PT: recommending IP PT. 07/29/17 Renal function has returned to baseline (though BUN increased from yesterday). Lisinopril has been resumed, and actually increased to 10 mg due to persistently elevated BP. Continue Norvasc. Hypokalemia - corrected. Back pain; L1 burst fx - will ask CM to contact Dr. Abrams's office first thing in am to try to set up an appt for tomorrow. DC plan: she is not interested in SNF. She intends on going home with Home Health. Dipti is leaving for [place] tomorrow evening but his brother from will be coming down to help tomorrow. We could also consider getting a MIKE on her before discharge, or perhaps in outpatient setting. DC tele - sinus/tach. Discharge Plan - Med Rec/Dispo Referrals/Follow Up: KAIT DAIGLE MD [Physician Nonstaff] - (will be seen at noon today. Son will take pt there on dismissal.) Rika Segovia DO [Family Provider] - 1 Week Truvran Instructions: Acute Kidney Injury (GEN), Encephalopathy (GEN) Additional Instructions: Please set up Life Alert. The dependency case manager should have given you the information you need to be able to do this. The dependency case manager us getting home health set up for you. She will be in touch with you once this is finalized. Check your blood pressures daily and take list of your blood pressures with you to follow-up appointment with Dr. Segovia. Prescriptions: New Acetaminophen [Tylenol] 650 mg PO Q5H tablet Continue Aspirin 325 mg PO DAILY #0 Calcium Carbonate/Vitamin D3 [Calcium 600-Vit D3 200 Tablet] 1 tab PO DAILY # 0 Calcium Polycarbophil [Fiber] 1 tab PO DAILY Lisinopril [Prinivil] 5 mg PO DAILY Tolterodine Tartrate [Tolterodine Tartrate ER] 4 mg PO DAILY BuPROPion XL [Wellbutrin Xl] 150 mg PO DAILY Cholecalciferol (Vitamin D3) [Vitamin D3] 1 tab PO DAILY Ascorbate Calcium [Vitamin C] 500 mg PO DAILY Multivitamin [One Daily] 1 tab PO DAILY Vitamin E 100 unit PO DAILY Temazepam [Restoril] 30 mg PO HS PRN PRN Reason: Sleep Calcitonin Nasal [place] 1 spray NS DAILY Artificial Tears [Tears Naturale] 2 drops RIGHT EYE BID Glucosamine 1 tab PO DAILY Docusate Sodium [Stool Softener] 200 mg PO HS PRN PRN Reason: Constipation Sertraline [Zoloft] 100 mg PO DAILY Denosumab [Prolia] 60 mg SQ [id number] prednisoLONE acetate [Prednisolone Acetate] 1 drop LEFT EYE DAILY Levomefolate/Algal Oil [[place]plin-Algal Oil 15 mg Capsule] 1 cap PO DAILY Discontinued FentaNYL PATCH [Duragesic Patch] 100 mcg TD Q72H Hydrocodone/APAP 7.5/325 [[place] 7.5/325] 2 tab PO Q4H PRN PRN Reason: Pain Cyclobenzaprine [Flexeril] 1 tab PO TID PRN PRN Reason: Spasms Hydrocodone/Acetaminophen [Hydrocodon-Acetaminophn 10-325] 1 tab PO Q6H PRN PRN Reason: Pain Discharge Instructions/Outpatient Orders: Final Provider Discharge Instructions Location: Determined By Patient - Disposition [address] [place] [address]
--- NOTE | 2017-07-30 18:18 | Discharge Summary ---
Discharge Information Date of admission: 07/25/17 16:40 Anticipated date of discharge: 07/30/17 Attending Physician: Alf Rich MD Primary care physician: Rika Segovia, Consults: 07/25/17 16:33 Dietary Consult [CONS] Routine Comment: Reason For Exam: - Discharge Diagnosis (1) Acute encephalopathy Status: Acute Discharge Diagnosis: SUMMARY - This is a 72 YO patient that was admitted with MS changes thought to be due in part to opioids she was using for chronic back pain. She has been managed without Opioids and is doing fair on Tylenol alone. She states she had an L1 fracture in the past and has been diagnosed with osteopenia and osteoporosis. Since admission her mentation has improved and her renal failure and high K also have improved. her Lisinopril was resumed and she is tolerating it well. Pt will be going home today - advised to have her get a "First alert" device. She will be going to Dr Abrams's office for evaluation and treatment of her back pain today at 1pm. DIAGNOSIS AND PLAN - 1) Burst fracture of L1. Dr Roca reviewed the case and discussed with Dr. Abrams; he reviewed her scans which showed multiple herniated disks as well as is a retropulsed L1 and central canal narrowing. She had a recent epiosode of ALLI that was thought to be pre-renal + Bactrim effect - Pt will be visiting Dr Abrams's office today. 2) Delirium - improved - due to opioids ? On admission pt apparently had 2 fentanyl patches on. - CT head negative - TME - resolved. 3) Renal failure with Hyperkalemia on admission - Resolved now. - Lisinopril was resumed on 07/28 @ 5mg/day today increased to 10mg/day. - Continue with Norvasc. 4) Chronic low back pain - As above. - Discussed disposition with son patient and D/C brand planner and pt was not interested on SNF or SNIF at present. Will be going home with home health. 5) Hypokalemia - resolved. DISPOSITION - HOME NOW. (2) Acute kidney injury Status: Acute - Laboratory Labs: 07/30/17 04:33 07/30/17 04:33 History of Present Illness HPI: HPI at time of admission: Marya is a 72-year-old female who has been under the primary care of Dr. Rika Segovia. Patient was seen in the emergency room last week on 07/20/17 with a complaint of encephalopathy. She was found to have a urinary tract infection. At that time her creatinine was noted to be elevated at 2.2. Her baseline from January 2017 was 1.2. She was placed on Bactrim antibiotic and instructed to follow with primary care. She was seen yesterday 07/24/17 at the primary care setting by Dr. Segovia. She was noted to have some mental status change and she reported to physician she's noticed some "sleepwalking". She reports last week she awoke to found herself in different rooms of the house. Laboratory studies were performed yesterday by Dr. Segoiva. Urinalysis did reveal 1+ leukocyte esterase, 5-10 WBCs with presence of calcium oxalate and mucus. Her WBC count was found to be 4.5, hemoglobin 11.8, platelet count 223. Sodium was 138, potassium 4.3, BUN 36, creatinine 2.6. TSH 1.51. Patient was sent home, however , returns today for office follow-up. Today, renal function was rechecked at the office, creatinine found to be even higher at 3.1. Given this continued change accompanied with her encephalopathy hospitalist services were contacted and accepted patient for direct admission for further evaluation and treatment. Patient does meet criteria or inpatient, Given acute encephalopathy, accompanied with creatinine elevation doubling from baseline. It is expected that her stay will be greater than 2 overnights Marya is seen on arrival to [facility]. She is alert and pleasant during conversation. She does verbalize that she has felt more confused over the last several weeks. She notes that last Sunday and she awoke finding herself in different rooms. Her friend notes that at that time she was found to have her car door open, as well as a garage door open and it is unknown if she drove during this time. Patient reports she is also had multiple falls, however, she is unable unable to give any specific details. She is noted to have large area of ecchymosis to the right side and flank. When inquired regarding this. Patient states "I must have fallen". Patient is also found to have 2 fentanyl patches 100 micrograms each on her low back on admission. When matched with clinic med reconciliation, Patient is supposed to have only 100 micrograms on at a time. Patient states that over the last couple of weeks. She reports felt that she "wanted to get all she could" out of her Fentanyl patches so she has been rotating them every 3rd day, however, always leaving [address]. Patient states she has decreased her [place] 10 mg tabs to 2 tabs at night. 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 We did discuss advanced directives and she does state that she is a do not resuscitate. Objective Vital signs: Temperature 98.2 F 07/30/17 07:00 Pulse Rate 93 07/30/17 07:00 Respiratory Rate 16 07/30/17 07:00 Blood Pressure 118/69 07/30/17 07:00 Pulse Oximetry 93 07/30/17 07:00 Rhythm: Normal Sinus Rhythm Height/Weight/BMI: Height 5 ft 7 in Weight 47 kg Body Mass Index 16.4 - Constitutional Present: no acute distress - Routine HEENT Exam Head: Present: normocephalic, atraumatic Eye: Present: EOMI, PERRL - Routine Respiratory Exam Present: CTA bilaterally - Routine Cardiovascular Exam Present: RRR - Routine Abdominal Exam Present: soft, non distended, non tender - Routine Extremities Exam Absent: cyanosis, clubbing, edema - Routine Neurological Exam Present: alert Forgetful - Routine Psychiatric Exam Present: normal affect, good judgment Hospital Course This is a general summary of the patient's hospital course. For more details refer to the complete medical record. Hospital course: 07/25/17- initial admission Impression Acute encephalopathy. Acute kidney injury-baseline creatinine 1.1, creatinine on admission 3.1 Recent urinary tract infection Frequent falls Right flank ecchymosis Chronic back pain - lumbar burst fracture Hypertension Anxiety Insomnia Osteoporosis with osteopenia History of alcoholism - sober since 2005 Blind right eye Plan Will admit patient as an inpatient under the care of Dr. Richardson for acute encephalopathy with acute kidney injury. She does meet inpatient criteria. Given her significant rise in creatinine has her baseline is 1.1. Creatinine today. 3.1 Will obtain the following laboratory studies on admission- CBC, CMP Recheck urinalysis to evaluate for acute infectious process. In light of encephalopathy, accompanied with frequent falls an unknown injury. Will obtain a CT scan of the head to rule out intracranial abnormalities or hemorrhaging. Even acute kidney injury and rise in creatinine as well as extensive ecchymosis to the right flank and right side. Will obtain a renal ultrasound to rule out renal trauma. Fentanyl patch 100mcg 2 removed from low back on admission. Will need to monitor for acute opiate withdrawal as patient chronically uses both that now and [place] for chronic pain. Normal saline at 100 ML per hour for gentle hydration. Will need to review home medications once they're reconciled in the computer. It does appear that patient is on lisinopril for chronic hypertension. This will need to be held given her acute kidney injury. 07/26/17 Renal function continues to improve - creatinine down to 1.8. Continue IVF. C/o nausea - add Zofran PRN. Could be r/t narcotics. Will stop [place] (pt reports not helpful). We discussed importance of not using 2 Fentanyl patches at a time (she stated that when it was time to apply a new Fentanyl patch the last time, she decided to leave the last one on, hoping it would help with her pain). She has had 1 visit with a pain mgt specialist and has another one coming up. Resume Flexeril PRN. Hold off on restarting Fentanyl patch for now. Discussed code status - she would want an attempt at resuscitation, so will leave as full code. She reports that she has a living will and her sons know that she would not want to be kept alive on a ventilator. Weight loss and anorexia, nausea, fatigue - [facility] [place] chart reviewed - no recent TSH or iron or B12 studies - will assess now. Urine culture from 07/24/17 was negative. Check prealbumin - may need dietary consult. Home medications reviewed with [facility]; not all were resumed. Lisinopril still on hold. 07/27/17 Renal function has returned to baseline. However, with recent ALLI would continue to hold Lisinopril at least for a few days. Acute encephalopathy has nearly, if not completely, resolved. More pressing is her elevated blood pressure, which could be an acute pain response. Will start Norvasc 5 mg today We would like to have a safe narcotic discharge plan before sending her home - Dr. Richardson is planning on discussing case with Dr. Daigle. Evaluated by PT: recommending IP PT. 07/29/17 Renal function has returned to baseline (though BUN increased from yesterday). Lisinopril has been resumed, and actually increased to 10 mg due to persistently elevated BP. Continue Norvasc. Hypokalemia - corrected. Back pain; L1 burst fx - will ask CM to contact Dr. Abrams's office first thing in am to try to set up an appt for tomorrow. DC plan: she is not interested in SNF. She intends on going home with Home Health. Dipti is leaving for [place] tomorrow evening but his brother from will be coming down to help tomorrow. We could also consider getting a MIKE on her before discharge, or perhaps in outpatient setting. DC tele - sinus/tach. Discharge Plan - Med Rec/Dispo Referrals/Follow Up: KAIT DAIGLE MD [Physician Nonstaff] - (will be seen at noon today. Son will take pt there on dismissal.) Rika Segovia DO [Family Provider] - 1 Week [place] Instructions: Acute Kidney Injury (GEN), Encephalopathy (GEN) Additional Instructions: Please set up Life Alert. The pillowcase cleaner should have given you the information you need to be able to do this. The pillowcase cleaner us getting home health set up for you. She will be in touch with you once this is finalized. Check your blood pressures daily and take list of your blood pressures with you to follow-up appointment with Dr. Segovia. Prescriptions: New Acetaminophen [Tylenol] 650 mg PO Q5H tablet Continue Aspirin 325 mg PO DAILY #0 Calcium Carbonate/Vitamin D3 [Calcium 600-Vit D3 200 Tablet] 1 tab PO DAILY # 0 Calcium Polycarbophil [Fiber] 1 tab PO DAILY Lisinopril [Prinivil] 5 mg PO DAILY Tolterodine Tartrate [Tolterodine Tartrate ER] 4 mg PO DAILY BuPROPion XL [Wellbutrin Xl] 150 mg PO DAILY Cholecalciferol (Vitamin D3) [Vitamin D3] 1 tab PO DAILY Ascorbate Calcium [Vitamin C] 500 mg PO DAILY Multivitamin [One Daily] 1 tab PO DAILY Vitamin E 100 unit PO DAILY Temazepam [Restoril] 30 mg PO HS PRN PRN Reason: Sleep Calcitonin Nasal [place] 1 spray NS DAILY Artificial Tears [Tears Naturale] 2 drops RIGHT EYE BID Glucosamine 1 tab PO DAILY Docusate Sodium [Stool Softener] 200 mg PO HS PRN PRN Reason: Constipation Sertraline [Zoloft] 100 mg PO DAILY Denosumab [Prolia] 60 mg SQ [id number] prednisoLONE acetate [Prednisolone Acetate] 1 drop LEFT EYE DAILY Levomefolate/Algal Oil [Deplin-Algal Oil 15 mg Capsule] 1 cap PO DAILY Discontinued FentaNYL PATCH [Duragesic Patch] 100 mcg TD Q72H Hydrocodone/APAP 7.5/325 [[place] 7.5/325] 2 tab PO Q4H PRN PRN Reason: Pain Cyclobenzaprine [Flexeril] 1 tab PO TID PRN PRN Reason: Spasms Hydrocodone/Acetaminophen [Hydrocodon-Acetaminophn 10-325] 1 tab PO Q6H PRN PRN Reason: Pain Discharge Instructions/Outpatient Orders: Final Provider Discharge Instructions Location: Determined By Patient - Disposition [address] [place] [address]
== END 2017-07-30 11:16 | disposition home health service (06) | DRG 71 ==
LOC: MED
PROVIDERS: ADMIT Internal Medicine Infectious Disease; ATTEND Internal Medicine